=== PATIENT | female | born 1945 | race Caucasian/White ===

== ENCOUNTER → 2016-09-27 | Outpatient (REF) | payer MEDICARE, BC ==
[2016-09-27 14:34] LABS: ALBUMIN 3.9 GM/DL (3.2-5.2); ALKALINE PHOSPHATASE 96 U/L (45-117); ALT/SGPT 22 U/L (12-78); ANION GAP 8 MEQ/L (8-16); AST/SGOT 19 U/L (15-37); BILIRUBIN,TOTAL 0.3 MG/DL (0.2-1.0); BLOOD UREA NITROGEN 20 MG/DL (7-18); CALCIUM LEVEL 9.2 MG/DL (8.8-10.2); CARBON DIOXIDE LEVEL 30 MEQ/L (21-32); CHLORIDE LEVEL 104 MEQ/L (98-107); CHOLESTEROL LEVEL 218 MG/DL (<200); CREATININE FOR GFR 0.83 MG/DL (0.55-1.02); GLOMERULAR FILTRATION RATE > 60.0 (>45); GLUCOSE, FASTING 87 MG/DL (80-110); POTASSIUM SERUM 3.9 MEQ/L (3.5-5.1); SODIUM LEVEL 142 MEQ/L (136-145); TOTAL PROTEIN 6.5 GM/DL (6.4-8.2); TRIGLYCERIDES LEVEL 103 MG/DL (<150)
== END ==
LOC: M SFHCPLAZ 11:17
PROVIDERS: ATTEND Nurse Practitioner Family
DX: E78.2 Mixed hyperlipidemia (principal)

== ENCOUNTER → 2016-09-27 | Outpatient (CLI) | payer MEDICARE, BC ==
--- NOTE | 2016-09-27 11:30 | REPMRS ---
Patient History The patient states she had a clinical breast exam in 09/2016. Patient is postmenopausal. Family history of breast cancer in paternal aunt. Digital Woman Screen Mammo: September 27, 2016 - Exam #: [id number] Bilateral CC and MLO view(s) were taken. Technologist: Ericka Evans Technologist Prior study comparison: July 08, 2015, digital woman screen mammo performed at [facility] to [facility]. July 01, 2014, digital woman screen mammo performed at [facility] to [facility]. FINDINGS: The breast tissue is heterogeneously dense. This may lower the sensitivity of mammography. There has been no change in the appearance of the mammogram from the prior studies. There is a moderate amount of residual fibroglandular tissue which is fairly symmetric. There is no interval development of dominant mass, areas of architectural distortion, or clustered microcalcification typical of malignancy. ASSESSMENT: BI-RADS/ACR category 1 mammogram. Negative. Recommendation Routine screening mammogram in 1 year (for women over age 40). This mammogram was interpreted with the aid of an FDA-approved computer-aided dectection system. Electronically Signed By: Ventura Chambers MD 09/27/16 [id number]
== END ==
LOC: M WHC 10:40
PROVIDERS: ATTEND Nurse Practitioner Family
DX: Z12.31 Encounter for screening mammogram for malignant neoplasm of breast (principal); Z78.0 Asymptomatic menopausal state; Z79.899 Other long term (current) drug therapy
CPT/HCPCS: 80053; 80061; G0202; G0463

== ENCOUNTER → 2016-09-30 | Outpatient (CLI) | payer MEDICARE, BC ==
[~2016-09-30] MED LIST: ISOVUE-370 76% 100ML VIAL (Q9967) As Ordered ONE
--- NOTE | 2016-09-30 17:04 | REP ---
CT angiography of the abdominal aorta and lower extremity runoff arteries with IV contrast: History: Peripheral arterial disease. CT contrast dose: 100 mL of Isovue-370 is administered intravenously. Technique: Helical scanning is acquired and 3 mm axial images are reviewed. Coronal and sagittal multiplanar reformation images are generated reviewed. Maximal intensity projection images are generated in the coronal imaging plane. Scan delay was affected to some degree by malfunction of the auto trigger mechanism. However, good opacification of the arterial tree was achieved. Nonvascular findings: There is a peripheral discontinuous enhancement in a 4.6 cm stable right hepatic lobe benign hemangioma unchanged from the prior study of 2005. Vascular findings: The suprarenal and infrarenal abdominal aorta are normal in caliber. There is mild vascular calcification of the distal aorta and common iliac arteries. Singular non-stenotic left renal artery is seen. 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 No renal artery stenosis is seen. No aortic stenosis is seen. The common iliac arteries are widely patent bilaterally. External and internal iliac arteries are widely patent. Common femoral arteries are widely patent bilaterally. The superficial femoral artery show no evidence of significant stenosis or plaquing. Popliteal arteries are widely patent bilaterally. There is some venous opacification seen rendering it somewhat difficult to evaluate the calf arteries but there appear to be three-vessel calf run off arteries with enhancing to the distal calf. No evidence of occlusion or stenosis. Impression: 1. 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 2. Mild vascular calcification. No large artery occlusion or stenosis seen in either leg. 3. Stable 4.6 cm hemangioma of the liver. Signed by Raymond Guo MD 10/01/2016 10:42 A
== END ==
LOC: M RAD 14:44
PROVIDERS: ATTEND Physician Assistant Medical
DX: I73.9 Peripheral vascular disease, unspecified (principal)
CPT/HCPCS: 75635; Q9967

== ENCOUNTER → 2016-11-18 | Outpatient (CLI) | payer MEDICARE, BC ==
--- NOTE | 2016-11-18 23:45 | ECWPNPC ---
PATIENT NAME: EDITH ROJAS : 1945 GENDER: FEMALE VISIT DATE: 11/18/2016 DISCHARGE DATE: 11/18/16 1500 VISIT LOCKED DATE TIME: PHYSICIAN: LENARD SWIFT RESOURCE: LENARD SWIFT REASON FOR APPOINTMENT 1. LUMBAR/RIGHT SIJ HISTORY OF PRESENT ILLNESS FALL RISK SCREENIN71 Y/O FEMALE REFERRED BY [facility]DLER TIER TO EVALUATE CHRONIC RIGHT SIDED LOW BACK PAIN.THIS BEGAN SEVERAL YEARS AGO WITHOUT PRECIPITATING EVENT.PAIN IS AGGREVATED AT NIGHT WHEN LAYING DOWN AND RELIEVED BY STANDING UP.HAVING SMALL AMOUNT OF CONSTANT ACHING AND THROBBING PAIN.RATING PAIN VAS 2/10.HAS TRIALED MULTIPLE DIFFERENT MEDICATIONS WITHOUT IMPROVEMENT OR WITH SIDE EFFECTS.TRIALED RIGHT SIJ ONE YEAR AGO WITHOUT IMPROVEMENT.TRIALED MANAGER TRANSPORTATION WITHOUT IMPROVEMENT.DENIES RECENT FEVER,ILLNESS OR WEIGHT LOSS.REPORTING NORMAL BOWEL AND BLADDER FUNCTION. SCREENING :NO FALLS IN THE PAST YEAR PAIN SCREENING: PATIENT HAS A COMPLAINT OF ACUTE OR CHRONIC PAIN :YES CURRENT MEDICATIONS TAKING CALCIUM 600 + D 600-400 MG-UNIT TABLET 1 TABLET ORALLY DAILY TAKING VITAMIN D 400 UNIT CAPSULE 1 TABLET ORALLY ONCE A DAY TAKING MULTIVITAMINS OTC TABLET 1 TABLET ORALLY ONCE A DAY TAKING EPIPEN 2-HEATHER 0.3 MG/0.3ML (1:1000) DEVICE INJECTION INTRAMUSCULAR NEEDED TAKING ASPIR-81 81 MG TABLET DELAYED RELEASE 1 TABLET ORALLY ONCE A DAY TAKING PRILOSEC 40 MG CAPSULE DELAYED RELEASE 1 CAPSULE ORALLY ONCE A DAY TAKING LIPITOR 20 MG TABLET 1 TABLET ORALLY ONCE A DAY TAKING GABAPENTIN 100 MG CAPSULE TAKE ONE CAPSULE BY MOUTH THREE TIMES A DAY NEEDED DIRECTED ORAL 2 TBS IN A.M. , 1 TAB IN P.M. TAKING NAPROXEN 500 MG TABLET DELAYED RELEASE 1 TABLET ORALLY TWICE A DAY NEEDED NOT-TAKING GABAPENTIN 300 MG CAPSULE 1 CAPSULE ORALLY AT HS X 1 WEEK, THEN BID X 1 WEEK, THEN THREE TIMES A DAY MEDICATION LIST REVIEWED AND RECONCILED WITH THE PATIENT PAST MEDICAL HISTORY OSTEOPENIA BILAT PLANTAR FASCIATIS ENVIR. ALLERGIES (HAD ANAPHYLAXIS WITH RAGWEED SKIN TESTING), CARRIES EPI-PEN HEMORRHOIDS/DIVERTICULOSIS HYPERLIPIDEMIA HX. OF COLON POLYP CHRONIC BACK PAIN DDD SIJ DISEASE ALLERGIES ACTONEL: BACK PAIN: SIDE EFFECTS FLEXERIL: HIVES: ALLERGY PENICILLIN V POTASSIUM: HIVES: ALLERGY SULFA (FOR ALLERGY USE ONLY): HIVES: ALLERGY ELAVIL: INEFFECTIVE: LACK OF THERAPEUTIC EFFECT CYMBALTA: NAUSEA , RHODES, DIZZINESS: SIDE EFFECTS ENVIRONMENTAL: SNEEZING, WATERY EYES, SINUS CONGESTION: ALLERGY SURGICAL HISTORY X2 D & C 1997,2000 VAGINAL CYST 04/28 GANGLION CYST R HAND 07/25 PARATHYROIDECTOMY ADENOMA - DR HERRERA 04/29 COLONOSCOPY, HAS HAD 3 - PRIOR POLYPS, ANDREI - DIVERTICULOSIS, (NO POLYPS IN ) 11/29 TONSILLECTOMY AGE 7 2 BASAL CELL CANCER SURGERIES ON FACE 2015 FAMILY HISTORY FATHER: 49 YRS, DIAGNOSED WITH HEART DISEASE MOTHER: 65 YRS, CANCER, LIVER, HX OF HIP FRACTURE, DIAGNOSED WITH CANCER SIBLINGS: ALIVE 1 BROTHER(S) , 1 SISTER(S) - HEALTHY. MOTHER-LIVER CA. SOCIAL HISTORY GENERAL: TOBACCO USE ARE YOU A:FORMER SMOKER HOW LONG HAS IT BEEN SINCE YOU LAST SMOKED?> 10 YEARS BMI CARE GOAL FOLLOW-UP ABOVE NORMAL BMI FOLLOW-UPGIVING ENCOURAGEMENT TO EXERCISE ALCOHOL SCREENING DID YOU HAVE A DRINK CONTAINING ALCOHOL IN THE PAST YEAR?YES HOW OFTEN DID YOU HAVE A DRINK CONTAINING ALCOHOL IN THE PAST YEAR?MONTHLY OR LESS (1 POINT) HOW MANY DRINKS DID YOU HAVE ON A TYPICAL DAY WHEN YOU WERE DRINKING IN THE PAST YEAR?1 OR 2 (0 POINTS) HOW OFTEN DID YOU HAVE SIX OR MORE DRINKS ON ONE OCCASION IN THE PAST YEAR?NEVER (0 POINTS) POINTS1 INTERPRETATIONNEGATIVE RECREATIONAL DRUG USE DRUG USE?NO CAFFEINE CAFFEINE USE?YES HOW OFTEN AND HOW MUCH? 3 CUPS/DAY HIV / HEP-C SCREENING HIV TEST OFFERED TO PATIENT:NO N/A HEP-C TEST OFFERED TO PATIENT:YES DATE OFFERED:08/04/2016 TEST ACCEPTED:NO REASON:PATIENT DECLINED OCCUPATION: EDUCATION - RETIRED TEACHER. DIET: REGULAR. EXERCISE: WALKS OR BIKES DAILY (LESS IN WINTER). MARITAL STATUS: . OTHERS AT HOME: SPOUSE. PETS: NONE. ANABAPTISM [id number] NONE LANGUAGE BULGARIAN. EDUCATION LEVEL OF EDUCATION:COLLEGE LEARNING BARRIERS / SPECIAL NEEDS CHANGE FROM LAST VISIT?NO BARRIERS TO LEARNING?NO HEARING IMPAIRED?NO VISION IMPAIRED?YES :CORRECTIVE LENSES COGNITIVELY IMPAIRED?NO READINESS TO LEARN?YES LEARNING PREFERENCES?NO LEARNING CAPABILITIES PRESENT?YES EMOTIONAL BARRIERS?NO SPECIAL DEVICES?NO MANAGER OF SUPPLY CHAIN NEEDED?NO NEW PATIENT PAIN DIARY FROM 0-10, WHAT NUMBER IS YOUR PAIN TODAY? 3. PAIN CLINIC PFS, CLERGY, PUBLIC HEALTH REFERRALS PFS REFERRAL NEEDED?NO CLERGY REFERRAL NEEDED?NO PUBLIC HEALTH REFERRAL NEEDED?NO ADVANCED DIRECTIVES HEALTH CARE PROXY?YES NAME OF HCP , LIZETTE ROJAS CONTACT # FOR HCP [phone] (C) DO YOU HAVE A COPY WITH YOU?NO DO YOU HAVE A DNR?NO WOULD YOU LIKE MORE INFORMATION?NO LIVING WILL?YES DO YOU HAVE A COPY WITH YOU?NO POWER OF MEMBERSHIP SALES ADVISOR?YES NAME OF POA? , LIZETTE PHONE # OF POA? ABOVE DO YOU HAVE A COPY WITH YOU?YES HAVE YOU HAD A COPY OF ANY ADVANCED DIRECTIVE (LISTED ABOVE) ON A PREVIOUS MEDICAL RECORDS AT [facility]?NO TRAVEL OUTSIDE US: YES, [facility], [place], [place], [place], [place]. DOMESTIC VIOLENCE: NONE. 11/18/16 PLAN OF CARE FOR THE PAIN CENTER REVIEWED WITH PT. AND SHE VERBALIZED UNDERSTANDING. HOSPITALIZATION/MAJOR DIAGNOSTIC PROCEDURE PARATHYROIDECTOMY 04/29 REVIEW OF SYSTEMS CONSTITUTIONAL: ANY CHANGE IN YOUR MEDICAL CONDITION? NO . CHILLS NO . FEVER NO . INFECTION: DO YOU HAVE NEW INFECTIONS? NO . DO YOU HAVE HISTORY OF MRSA? NO . MUSCULOSKELETAL: ANY NEW PATTERNS OF PAIN OR NUMBNESS? NO . SYTEMIC LUPUS NO . GASTROENTEROLOGY: ANY NEW CHANGE IN BOWEL CONTROL? NO . BARRETTS ESOPHAGUS NO . CIRRHOSIS NO . HEPATITIS NO . LIVER FAILURE NO . ACID REFLUX YES . UNEXPLAINED WEIGHT LOSS NO . GENITOURINARY: ANY NEW CHANGE IN BLADDER CONTROL? NO . IS THERE A CHANCE YOU COULD BE ? NO . HEMATOLOGY/LYMPH: DO YOU TAKE ANY BLOOD THINNERS? (FOR EXAMPLE- COUMADIN, PLAVIX, AGGRENOX, PLATEL, PRADAXA, OR XARELTO) NO . WHEN WAS YOUR LAST DOSE? DATE: TIME: . LOW PLATELET COUNT NO . SICKLE CELL DISEASE NO . VON WILLIEBRANDS NO . FACTOR V LEIDEN NO . THALLASEMIA NO . ANEMIA NO . EASY BRUISING ON ASPIRIN, YES . NEUROLOGY: HAVE YOU FALLEN IN THE PAST 6 MONTHS? NO . ANY NEW EXTREMITY NUMBNESS OR WEAKNESS? NO . HEAD INJURY NO . DEMENTIA NO . CEREBRAL PALSY NO . MULTIPLE SCLEROSIS NO . DIZZINESS NO . HEADACHE NO . STROKES NO . VERTIGO NO . CARDIOLOGY: DO YOU HAVE A PACEMAKER OR DEFIBRILLATOR? NO . ANGINA NO . HEART ATTACK NO . HEART SURGERY NO . CONGESTIVE HEART FAILURE/FLUID OVERLOAD NO . CHEST PAIN NO . HIGH BLOOD PRESSURE NO . IRREGULAR HEART BEAT NO . RESPIRATORY: HAVE YOU BEEN SICK IN THE PAST WEEK? NO . FEVER NO . FLU LIKE SYMPTOMS? NO . CPAP NO . BYPAP NO . ASTHMA NO . EMPHYSEMA NO . CHRONIC LUNG DISEASES NO . SHORTNESS OF BREATH ON EXERTION NO . COUGH NO . SNORING YES, OCC. . INTEGUMENTARY: DO YOU HAVE ANY RASHES OR OPEN SORES? NO . ALLERGIC/IMMUNO: ARE YOU ALLERGIC TO SHELLFISH OR IV DYE? NO . ANY NEW ALLERGIES? NO . PSYCHIATRIC: DO YOU HAVE THOUGHTS OF HURTING YOURSELF OR SOMEONE ELSE? NO . ARE YOU ABUSED, NEGLECTED, OR IN AN UNSAFE ENVIRONMENT? NO . ENDOCRINOLOGY: ARE YOU DIABETIC? NO . THYROID DISORDER NO . OTHER: DO YOU NEED ANY PRESCRIPTIONS? NO . IF YES, PLEASE LIST: ____ . ANY NEW PROBLEMS WITH YOUR MEDICATIONS? NO . WHEN DID YOU LAST EAT? ____ . WHEN DID YOU LAST DRINK? ____ . WHAT DID YOU LAST DRINK? ____ . NAME OF PERSON DRIVING YOU HOME? ____ . DO YOU HAVE ANY OTHER QUESTIONS OR CONCERNS YES, PAIN RELIEF . REVIEWED BY: PROVIDER: LENARD SUGGS . VITAL SIGNS WT 175.0 LBS, HT 64.75 IN, BMI 29.34 INDEX, BP 148/94 MM HG, HR 103 /MIN, RR 16 /MIN, TEMP 98.5 F, OXYGEN SAT % 96%, NA INITIALS TL 1318, REVIEWED BY: AD. EXAMINATION GENERAL EXAMINATION: GENERAL APPEARANCE:PLEASANT. LUNGS:LUNG IGLESIAS ARE CLEAR TO AUSCULTATION BILATERALLY. GOOD MOVEMENT OF AIR. HEART:S1, S2 IN A REGULAR RATE AND RHYTHM. NO SIGNIFICANT MURMURS, RUBS OR GALLOPS NOTED. DIAGNOSTIC DATA:BILAT. SIJ 05-23-14-MINIMAL OSTEOARTHRITIS SIJ BILAT.L/S SPINE [id number]. LUMBAR SPINE/LOWER BACK: INSPECTION:NORMAL CURVATURE OF SPINE. PALPATION:LARGE TRIGGER POINT NOTED RIGHT LUMBAR PARASPINAL. MOTOR SYSTEM:5/5 BLE. SENSORY EXAM:NORMAL BILATERAL LE. REFLEXES:2/4 AND SYMMETRIC BLE. GAIT:UNREMARKABLE. ASSESSMENTS MYOFASCIAL PAIN SYNDROME - M79.1 (PRIMARY) TREATMENT MYOFASCIAL PAIN SYNDROME TRIGGER POINT 1-2 LENARD HURST 11/18/2016 2:25:43 PM > RIGHT LOWER LUMBAR TPI NOTES: TRIGGER POINT INJECTION MATERIAL WAS PRINTED,TRIGGER POINT INJECTION: YOUR EXPERIENCE MATERIAL WAS PRINTED. REFERRAL TO:PHYSICAL THERAPIST REASON:MYOFASCIAL RELEASE RIGHT LOW BACK 2XWK X 8WK PREVENTIVE MEDICINE PAIN CLINIC TEACHING: PROCEDURE TEACHING PRINTED INFORMATION ONTPI GIVEN TO AND EXPLAINED TO PT ALONG WITH PRE-PROCEDURE INSTRUCTIONS. SHE VERVALIZED UNDERSTANDING ON BOTH.. PROCEDURE CODES FA211 ESTABILISHED PATIENT [facility] CHARGE G8730 PAIN ASSESS POS TOOL F/U PLAN DOC G8427 DOC MEDS VERIFIED W/PT OR RE DISPOSITION & COMMUNICATION FOLLOW UP 2WK POST (REASON: RIGHT LUMBAR TPI-HX VASOVAGAL RESPONSE) ELECTRONICALLY SIGNED BY IFEANYI ROSSI ON 11/18/2016 AT 04:06 PM EDT DISCLAIMER : THIS IS A VISIT SUMMARY EXTRACTED FROM THE [employer] CHART. IT IS NOT A COPY OF THE [employer] PROGRESS NOTE. ABRAHAM
== END ==
LOC: M PAIN 13:20
PROVIDERS: ATTEND Nurse Practitioner Family
DX: G89.29 Other chronic pain (principal); M79.1 Myalgia; M85.80 Other specified disorders of bone density and structure, unspecified site; E78.5 Hyperlipidemia, unspecified; M47.819 Spondylosis without myelopathy or radiculopathy, site unspecified; Z87.891 Personal history of nicotine dependence; Z88.0 Allergy status to penicillin; Z88.2 Allergy status to sulfonamides; Z88.8 Allergy status to other drugs, medicaments and biological substances; J30.89 Other allergic rhinitis; Z79.82 Long term (current) use of aspirin; Z79.899 Other long term (current) drug therapy

== ENCOUNTER → 2016-12-03 | Outpatient (CLI) | payer MEDICARE, BC ==
[~2016-12-03] MED LIST changes: +BUPIVACAINE HCL 0.25% 10 ML VIAL As Ordered ONE; +BUPIVACAINE HCL 0.25% 30 ML VIAL As Ordered ONE; -ISOVUE-370 76% 100ML VIAL (Q9967) As Ordered ONE; +TRIAMCINOLONE ACETONIDE SUSP 40 MG/ML VIAL (J3301) As Ordered ONE; +diazePAM 5 MG TAB As Ordered ONE; +diphenhydrAMINE INJ 50MG/ML VIAL (J1200) As Ordered ONE; +oxyCODONE 5MG TAB As Ordered ONE
--- NOTE | 2016-12-14 01:11 | ECWPNPC ---
PATIENT NAME: EDITH ROJAS : 1945 GENDER: FEMALE VISIT DATE: 12/03/2016 DISCHARGE DATE: 12/03/161636 VISIT LOCKED DATE TIME: PHYSICIAN: MARCELO ESPARZA RESOURCE: MARCELO ESPARZA REASON FOR APPOINTMENT 1. SIJ CURRENT MEDICATIONS TAKING CALCIUM 600 + D 600-400 MG-UNIT TABLET 1 TABLET ORALLY DAILY, NOTES: 12/03/16629 TAKING VITAMIN D 400 UNIT CAPSULE 1 TABLET ORALLY ONCE A DAY, NOTES: 12/03/16629 TAKING MULTIVITAMINS OTC TABLET 1 TABLET ORALLY ONCE A DAY, NOTES: 12/02/161699 TAKING EPIPEN 2-HEATHER 0.3 MG/0.3ML (1:1000) DEVICE INJECTION INTRAMUSCULAR NEEDED, NOTES: NONE RECENT TAKING ASPIR-81 81 MG TABLET DELAYED RELEASE 1 TABLET ORALLY ONCE A DAY, NOTES: 12/02/161899 TAKING PRILOSEC 40 MG CAPSULE DELAYED RELEASE 1 CAPSULE ORALLY ONCE A DAY, NOTES: 12/03/16629 TAKING LIPITOR 20 MG TABLET 1 TABLET ORALLY ONCE A DAY, NOTES: 12/02/161899 TAKING NAPROXEN 500 MG TABLET DELAYED RELEASE 1 TABLET ORALLY TWICE A DAY NEEDED, NOTES: 2 WEEKS AGO NOT-TAKING GABAPENTIN 100 MG CAPSULE TAKE ONE CAPSULE BY MOUTH THREE TIMES A DAY NEEDED DIRECTED ORAL 2 TBS IN A.M. , 1 TAB IN P.M., NOTES: 2 WEEKS AGO NOT-TAKING GABAPENTIN 300 MG CAPSULE 1 CAPSULE ORALLY AT HS X 1 WEEK, THEN BID X 1 WEEK, THEN THREE TIMES A DAY MEDICATION LIST REVIEWED AND RECONCILED WITH THE PATIENT PAST MEDICAL HISTORY OSTEOPENIA BILAT PLANTAR FASCIATIS ENVIR. ALLERGIES (HAD ANAPHYLAXIS WITH RAGWEED SKIN TESTING), CARRIES EPI-PEN HEMORRHOIDS/DIVERTICULOSIS HYPERLIPIDEMIA HX. OF COLON POLYP CHRONIC BACK PAIN DDD SIJ DISEASE ALLERGIES ACTONEL: BACK PAIN: SIDE EFFECTS FLEXERIL: HIVES: ALLERGY PENICILLIN V POTASSIUM: HIVES: ALLERGY SULFA (FOR ALLERGY USE ONLY): HIVES: ALLERGY ELAVIL: INEFFECTIVE: LACK OF THERAPEUTIC EFFECT CYMBALTA: NAUSEA , RHODES, DIZZINESS: SIDE EFFECTS ENVIRONMENTAL: SNEEZING, WATERY EYES, SINUS CONGESTION: ALLERGY VITAL SIGNS WT 174.0 LBS, HT 64.75 IN, BMI 29.18 INDEX, BP 151/101 MM HG, REPEAT BP 140/84 MANUAL, HR 79 /MIN, RR 16 /MIN, TEMP 97.3 F, OXYGEN SAT % 98%, NA INITIALS TL 1323, REVIEWED BY: AD. ASSESSMENTS MYALGIA - M79.1 (PRIMARY) PROCEDURES PN TRIGGER POINT INJECTION WITH STEROIDS PRE PROCEDURE DIAGNOSIS 1. MYALGIA 2. PAIN AT RIGHT LOW BACK AREA POST PROCEDURE DIAGNOSIS 1. MYALGIA 2. PAIN AT RIGHT LOW BACK AREA PROCEDURE TRIGGER POINT INJECTION AT RIGHT LOW BACK AREA SURGEON DR. MARCELO ESPARZA BALE COVERER NONE ANESTHESIA LOCAL PRE PROCEDURE NOTE THE PATIENT HAS A HISTORY OF CHRONIC PAIN AT THE RIGHT LOW BACK AREA. I EVALUATE THE PATIENT AND REVIEWED THE CHART. THERE IS EVIDENCE OF BANDS OF TISSUE WITH RESTRICTION OF MOVEMENT AND PRESENCE OF TRIGGER POINT AT THE AFFECTED AREA. I WENT OVER THE RISKS, ALTERNATIVES, AND BENEFITS ASSOCIATED WITH THIS PROCEDURE. THE PATIENT WOULD LIKE TO PROCEED AND GIVE CONSENT TO PERFORMED THE PROCEDURE. THE PATIENT DENIES UNEXPLAINABLE WEIGHT LOSS, FEVER, CHILLS, OR NEW CHANGES IN URINARY OR BOWEL CONTROL DESCRIPTION OF PROCEDURE THE PATIENT WAS BROUGHT TO THE PROCEDURE ROOM AND PLACED IN THE SITTING POSITION. THE AREA WAS CLEANED WITH ALCOHOL. THE PROCEDURE WAS DONE USING ASEPTIC STERILE TECHNIQUE. I CHECKED LATERALITY AND THE LEVEL WHERE THE PROCEDURE WAS GOING TO BE PERFORMED WITH THE PATIENT AND THE SUPPORTING STAFF AT THE MOMENT OF THE TIME OUT IN THE PROCEDURE ROOM. USING A 25-GAUGE NEEDLE, TRIGGER POINTS WERE INJECTED AT THE RIGHT LOW BACK AREA WITH A TOTAL OF 40 ML OF BUPIVACAINE 0.25% AND KENALOG 40 MG. THERE WAS NO EVIDENCE OF BLOOD, PARESTHESIA OR CEREBROSPINAL FLUID DURING THE PROCEDURE. THE PATIENT WAS SENT TO THE RECOVERY ROOM. THE PATIENT WAS MOVING THE EXTREMITIES AND DOING WELL. THERE WAS NO COMPLICATION DURING THE PROCEDURE POST PROCEDURE NOTE THE PATIENT WILL BE SEEN IN A FOLLOW UP IN THE NEXT FEW WEEKS. INSTRUCTIONS WERE GIVEN, QUESTIONS WERE ANSWERED, AND THE PATIENT EXPRESSED UNDERSTANDING AND AGREES WITH THE PLAN. I, NORMA OCASIO, DOCUMENTED THE ABOVE INFORMATION ACTING A SCRIBE FOR DR. ESPARZA. I HAVE REVIEWED THE ABOVE DOCUMENT, WRITTEN BY NORMA MERAZ AND I VERIFY THAT IT IS ACCURATE PROCEDURE CODES 36738 INJ TRIGGER POINT 07/26 [facility] DISPOSITION & COMMUNICATION FOLLOW UP 3 WEEKS ELECTRONICALLY SIGNED BY MARCELO ESPARZA MD ON 12/13/2016 AT 06:51 PM EDT DISCLAIMER : THIS IS A VISIT SUMMARY EXTRACTED FROM THE [employer] CHART. IT IS NOT A COPY OF THE [facility] PROGRESS NOTE. MTDD
== END ==
LOC: M PAIN 12:40
PROVIDERS: ATTEND Anesthesiology
DX: G89.29 Other chronic pain (principal); M79.1 Myalgia; M54.5 Low back pain; M85.80 Other specified disorders of bone density and structure, unspecified site; J30.89 Other allergic rhinitis; E78.2 Mixed hyperlipidemia; K21.9 Gastro-esophageal reflux disease without esophagitis; M51.36 Other intervertebral disc degeneration, lumbar region; M46.1 Sacroiliitis, not elsewhere classified; I73.9 Peripheral vascular disease, unspecified; Z88.0 Allergy status to penicillin; Z88.2 Allergy status to sulfonamides; Z88.8 Allergy status to other drugs, medicaments and biological substances; Z79.82 Long term (current) use of aspirin; Z79.899 Other long term (current) drug therapy
CPT/HCPCS: 20552; J1200; J3301

== ENCOUNTER → 2016-12-08 | Outpatient (REF) | payer MEDICARE, BC ==
[2016-12-08 18:43] LABS: ALBUMIN 3.7 GM/DL (3.2-5.2); ALBUMIN/GLOBULIN RATIO 1.32 (1.00-1.93); ALKALINE PHOSPHATASE 91 U/L (45-117); ALT/SGPT 24 U/L (12-78); ANION GAP 7 MEQ/L (8-16); AST/SGOT 13 U/L (15-37); BILIRUBIN,TOTAL 0.6 MG/DL (0.2-1.0); BLOOD UREA NITROGEN 20 MG/DL (7-18); CALCIUM LEVEL 8.6 MG/DL (8.8-10.2); CARBON DIOXIDE LEVEL 29 MEQ/L (21-32); CHLORIDE LEVEL 107 MEQ/L (98-107); CHOLESTEROL LEVEL 201 MG/DL (<200); CREATININE FOR GFR 0.81 MG/DL (0.55-1.02); FREE T4 1.18 NG/DL (0.76-1.46); GLOMERULAR FILTRATION RATE > 60.0 (>45); GLUCOSE, FASTING 86 MG/DL (80-110); POTASSIUM SERUM 4.3 MEQ/L (3.5-5.1); SODIUM LEVEL 143 MEQ/L (136-145); TOTAL PROTEIN 6.5 GM/DL (6.4-8.2); TRIGLYCERIDES LEVEL 56 MG/DL (<150)
== END ==
LOC: M SFHCCAPE 07:40
PROVIDERS: ATTEND Nurse Practitioner Family
DX: M53.3 Sacrococcygeal disorders, not elsewhere classified (principal); E78.2 Mixed hyperlipidemia

== ENCOUNTER → 2016-12-17 | Outpatient (CLI) | payer MEDICARE, BC ==
--- NOTE | 2017-01-11 02:40 | ECWPNPC ---
PATIENT NAME: EDITH ROJAS : 1945 GENDER: FEMALE VISIT DATE: 12/17/2016 DISCHARGE DATE: 12/17/1637 VISIT LOCKED DATE TIME: PHYSICIAN: LENARD SWIFT RESOURCE: LENARD SWIFT REASON FOR APPOINTMENT 1. POST PROCEDURE HISTORY OF PRESENT ILLNESS HISTORY OF PRESENT ILLNESS: HERE FOR POST PROCEDURE F/U.HAD RIGHT PARASPINAL TPI ON 12-03-16.REPORTS NO IMPROVEMENT IN PAIN POST PROCEDURE.ATTENDING PT PER MY ORDER AND HAS ATTENDED 5 SESSIONS AND DOESNT NOTICE ANY IMPROVEMENT.RATING PAIN 3/10 VAS.PAIN IS NON RADICULAR PAIN IS DESCRIBED INTERMITTENT THROBBING AND TENDERNESS RIGHT LOW BACK. FALL RISK SCREENING: SCREENING :NO FALLS IN THE PAST YEAR CURRENT MEDICATIONS TAKING CALCIUM 600 + D 600-400 MG-UNIT TABLET 1 TABLET ORALLY DAILY TAKING VITAMIN D 400 UNIT CAPSULE 1 TABLET ORALLY ONCE A DAY TAKING MULTIVITAMINS OTC TABLET 1 TABLET ORALLY ONCE A DAY TAKING EPIPEN 2-HEATHER 0.3 MG/0.3ML (1:1000) DEVICE INJECTION INTRAMUSCULAR NEEDED TAKING ASPIR-81 81 MG TABLET DELAYED RELEASE 1 TABLET ORALLY ONCE A DAY TAKING NAPROXEN 500 MG TABLET DELAYED RELEASE 1 TABLET ORALLY TWICE A DAY NEEDED TAKING LIPITOR 20 MG TABLET 1 TABLET ORALLY ONCE A DAY TAKING CIPRO 500 MG TABLET 1 TABLET ORALLY TWICE A DAY TAKING DIFLUCAN 150 MG TABLET 1 TABLET ORALLY DAILY NEEDED TAKING PRILOSEC 40 MG CAPSULE DELAYED RELEASE 1 CAPSULE ORALLY ONCE A DAY MEDICATION LIST REVIEWED AND RECONCILED WITH THE PATIENT PAST MEDICAL HISTORY OSTEOPENIA BILAT PLANTAR FASCIATIS ENVIR. ALLERGIES (HAD ANAPHYLAXIS WITH RAGWEED SKIN TESTING), CARRIES EPI-PEN HEMORRHOIDS/DIVERTICULOSIS HYPERLIPIDEMIA HX. OF COLON POLYP CHRONIC BACK PAIN DDD SIJ DISEASE ALLERGIES ACTONEL: BACK PAIN: SIDE EFFECTS FLEXERIL: HIVES: ALLERGY PENICILLIN V POTASSIUM: HIVES: ALLERGY SULFA (FOR ALLERGY USE ONLY): HIVES: ALLERGY ELAVIL: INEFFECTIVE: LACK OF THERAPEUTIC EFFECT CYMBALTA: NAUSEA , RHODES, DIZZINESS: SIDE EFFECTS ENVIRONMENTAL: SNEEZING, WATERY EYES, SINUS CONGESTION: ALLERGY SURGICAL HISTORY X2 D & C 1997,2000 VAGINAL CYST 04/28 GANGLION CYST R HAND 07/25 PARATHYROIDECTOMY ADENOMA - DR HERRERA 04/29 COLONOSCOPY, HAS HAD 3 - PRIOR POLYPS, ANDREI - DIVERTICULOSIS, (NO POLYPS IN 08) 11/29 TONSILLECTOMY AGE 7 2 BASAL CELL CANCER SURGERIES ON FACE 2016 HOSPITALIZATION/MAJOR DIAGNOSTIC PROCEDURE PARATHYROIDECTOMY 04/29 REVIEW OF SYSTEMS CONSTITUTIONAL: ANY CHANGE IN YOUR MEDICAL CONDITION? NO . CHILLS NO . FEVER NO . INFECTION: DO YOU HAVE NEW INFECTIONS? NO . DO YOU HAVE HISTORY OF MRSA? NO . MUSCULOSKELETAL: ANY NEW PATTERNS OF PAIN OR NUMBNESS? YES. PT STATES INCREASED PAIN AFTER STARTING PT . GASTROENTEROLOGY: ANY NEW CHANGE IN BOWEL CONTROL? NO . GENITOURINARY: ANY NEW CHANGE IN BLADDER CONTROL? NO . IS THERE A CHANCE YOU COULD BE ? NO . HEMATOLOGY/LYMPH: DO YOU TAKE ANY BLOOD THINNERS? (FOR EXAMPLE- COUMADIN, PLAVIX, AGGRENOX, PLATEL, PRADAXA, OR XARELTO) NO . WHEN WAS YOUR LAST DOSE? DATE: TIME: . NEUROLOGY: HAVE YOU FALLEN IN THE PAST 6 MONTHS? YES. PT STATES SHE MISJUDGED A STEP, FELL GOING DOWN STAIRS. PT STATES SHE FELL DOWN 1 STEP, DENIES MAJOR INJURY, JUST BRUISING. . ANY NEW EXTREMITY NUMBNESS OR WEAKNESS? NO . CARDIOLOGY: DO YOU HAVE A PACEMAKER OR DEFIBRILLATOR? NO . RESPIRATORY: HAVE YOU BEEN SICK IN THE PAST WEEK? NO . FEVER NO . FLU LIKE SYMPTOMS? NO . COUGH NO . INTEGUMENTARY: DO YOU HAVE ANY RASHES OR OPEN SORES? NO . ALLERGIC/IMMUNO: ARE YOU ALLERGIC TO SHELLFISH OR IV DYE? NO . ANY NEW ALLERGIES? NO . PSYCHIATRIC: DO YOU HAVE THOUGHTS OF HURTING YOURSELF OR SOMEONE ELSE? NO . ARE YOU ABUSED, NEGLECTED, OR IN AN UNSAFE ENVIRONMENT? NO . ENDOCRINOLOGY: ARE YOU DIABETIC? NO . OTHER: DO YOU NEED ANY PRESCRIPTIONS? NO . IF YES, PLEASE LIST: ____ . ANY NEW PROBLEMS WITH YOUR MEDICATIONS? NO . WHEN DID YOU LAST EAT? ____ . WHEN DID YOU LAST DRINK? ____ . WHAT DID YOU LAST DRINK? ____ . NAME OF PERSON DRIVING YOU HOME? ____ . DO YOU HAVE ANY OTHER QUESTIONS OR CONCERNS NO . REVIEWED BY: PROVIDER: LENARD SUGGS . VITAL SIGNS WT 172 LBS, HT 64.75 IN, BMI 28.84 INDEX, BP 173/95 MM HG, HR 66 /MIN, RR 18 /MIN, TEMP 97.7 F, OXYGEN SAT % 97, SAFE IN ENV? (Y/N) Y, REVIEWED BY: EM. EXAMINATION GENERAL EXAMINATION: GENERAL APPEARANCE:PLEASANT. LUNGS:LUNG IGLESIAS ARE CLEAR TO AUSCULTATION BILATERALLY. GOOD MOVEMENT OF AIR. HEART:S1, S2 IN A REGULAR RATE AND RHYTHM. NO SIGNIFICANT MURMURS, RUBS OR GALLOPS NOTED. DIAGNOSTIC DATA:BILAT. SIJ 05-23-14-MINIMAL OSTEOARTHRITIS SIJ BILAT.L/S SPINE [id number].MRI L/S [id number]-[id number]-REVIEWED. LUMBAR SPINE/LOWER BACK: INSPECTION:NORMAL CURVATURE OF SPINE. PALPATION:LARGE TRIGGER POINT NOTED RIGHT LUMBAR PARASPINAL AND OVER RIGHT PIRIFORMIS MUSCLE. MOTOR SYSTEM:5/5 BLE. SENSORY EXAM:NORMAL BILATERAL LE. REFLEXES:2/4 AND SYMMETRIC BLE. GAIT:UNREMARKABLE. 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 PROCEDURE CODES FA211 ESTABILISHED PATIENT THE [facility] FACILITY CHARGE DISPOSITION & COMMUNICATION FOLLOW UP 2WK POST (REASON: REQUEST RIGHT PIRIFORMIS INJECTION FROM INSURANCE) ELECTRONICALLY SIGNED BY IFEANYI ROSSI ON 01/10/2017 AT 05:32 PM EDT DISCLAIMER : THIS IS A VISIT SUMMARY EXTRACTED FROM THE [employer] CHART. IT IS NOT A COPY OF THE [employer] PROGRESS NOTE. LEOND
== END ==
LOC: M PAIN 08:40
PROVIDERS: ATTEND Nurse Practitioner Family
DX: G89.29 Other chronic pain (principal); M79.1 Myalgia; G57.01 Lesion of sciatic nerve, right lower limb; M85.80 Other specified disorders of bone density and structure, unspecified site; E78.2 Mixed hyperlipidemia; K21.0 Gastro-esophageal reflux disease with esophagitis; M53.3 Sacrococcygeal disorders, not elsewhere classified; Z88.0 Allergy status to penicillin; J30.89 Other allergic rhinitis; Z88.2 Allergy status to sulfonamides; Z88.8 Allergy status to other drugs, medicaments and biological substances; Z79.82 Long term (current) use of aspirin; Z79.899 Other long term (current) drug therapy

== ENCOUNTER → 2016-12-28 | Outpatient (CLI) | payer MEDICARE, BC ==
[~2016-12-28] MED LIST changes: -BUPIVACAINE HCL 0.25% 10 ML VIAL As Ordered ONE; +ISOVUE-M 300 61% 15ML VIAL (Q9967) As Ordered ONE; +LIDOCAINE 1% SDV INJ 30 ML VIAL As Ordered ONE; +MIDAZOLAM INJ 2 MG/2 ML VIAL (J2250) As Ordered ONE; -diazePAM 5 MG TAB As Ordered ONE; -diphenhydrAMINE INJ 50MG/ML VIAL (J1200) As Ordered ONE; +fentaNYL 100 MCG/2 ML INJECTION (J3010) As Ordered ONE; -oxyCODONE 5MG TAB As Ordered ONE
--- NOTE | 2016-12-28 12:19 | REP ---
Partial SI joint series: Four views. History: Right SI joint injection for pain. Findings: A sequence of four fluoroscopically obtained last image hold spot radiographs of the right SI joint document needle position and contrast injection associated with injection procedure. 23 seconds of fluoroscopy time is reported. Signed by Raymond Guo MD 12/28/2016 02:52 P
--- NOTE | 2017-01-02 23:33 | ECWPNPC ---
PATIENT NAME: EDITH ROJAS : 1945 GENDER: FEMALE VISIT DATE: 12/28/2016 DISCHARGE DATE: 12/28/16 1151 VISIT LOCKED DATE TIME: PHYSICIAN: MARCELO ESPARZA RESOURCE: MARCELO ESPARZA REASON FOR APPOINTMENT 1. PERIFORMIS HISTORY OF PRESENT ILLNESS HISTORY OF PRESENT ILLNESS: PAIN THE PATIENT DESCRIBES THE PAIN... FALL RISK SCREENING: SCREENING :NO FALLS IN THE PAST YEAR CURRENT MEDICATIONS TAKING CALCIUM 600 + D 600-400 MG-UNIT TABLET 1 TABLET ORALLY DAILY, NOTES: 12-28-16699 TAKING VITAMIN D 400 UNIT CAPSULE 1 TABLET ORALLY ONCE A DAY, NOTES: 12-27-16799 TAKING MULTIVITAMINS OTC TABLET 1 TABLET ORALLY ONCE A DAY, NOTES: 699 TAKING EPIPEN 2-HEATHER 0.3 MG/0.3ML (1:1000) DEVICE INJECTION INTRAMUSCULAR NEEDED TAKING ASPIR-81 81 MG TABLET DELAYED RELEASE 1 TABLET ORALLY ONCE A DAY, NOTES: 12-27-162099 TAKING NAPROXEN 500 MG TABLET DELAYED RELEASE 1 TABLET ORALLY TWICE A DAY NEEDED, NOTES: NONE TAKING LIPITOR 20 MG TABLET 1 TABLET ORALLY ONCE A DAY, NOTES: 12-27-162099 TAKING PRILOSEC 40 MG CAPSULE DELAYED RELEASE 1 CAPSULE ORALLY ONCE A DAY, NOTES: 12-28-16699 DISCONTINUED CIPRO 500 MG TABLET 1 TABLET ORALLY TWICE A DAY DISCONTINUED DIFLUCAN 150 MG TABLET 1 TABLET ORALLY DAILY NEEDED MEDICATION LIST REVIEWED AND RECONCILED WITH THE PATIENT PAST MEDICAL HISTORY OSTEOPENIA BILAT PLANTAR FASCIATIS ENVIR. ALLERGIES (HAD ANAPHYLAXIS WITH RAGWEED SKIN TESTING), CARRIES EPI-PEN HEMORRHOIDS/DIVERTICULOSIS HYPERLIPIDEMIA HX. OF COLON POLYP CHRONIC BACK PAIN DDD SIJ DISEASE ALLERGIES ACTONEL: BACK PAIN: SIDE EFFECTS FLEXERIL: HIVES: ALLERGY PENICILLIN V POTASSIUM: HIVES: ALLERGY SULFA (FOR ALLERGY USE ONLY): HIVES: ALLERGY ELAVIL: INEFFECTIVE: LACK OF THERAPEUTIC EFFECT CYMBALTA: NAUSEA , RHODES, DIZZINESS: SIDE EFFECTS ENVIRONMENTAL: SNEEZING, WATERY EYES, SINUS CONGESTION: ALLERGY REVIEW OF SYSTEMS CONSTITUTIONAL: ANY CHANGE IN YOUR MEDICAL CONDITION? NO . CHILLS NO . FEVER NO . INFECTION: DO YOU HAVE NEW INFECTIONS? NO . DO YOU HAVE HISTORY OF MRSA? NO . MUSCULOSKELETAL: ANY NEW PATTERNS OF PAIN OR NUMBNESS? YES, NOT REALLY NEW PAIN BUT IN DIFFERENT AREAS. . GASTROENTEROLOGY: ANY NEW CHANGE IN BOWEL CONTROL? NO . GENITOURINARY: ANY NEW CHANGE IN BLADDER CONTROL? NO . IS THERE A CHANCE YOU COULD BE ? NO . HEMATOLOGY/LYMPH: DO YOU TAKE ANY BLOOD THINNERS? (FOR EXAMPLE- COUMADIN, PLAVIX, AGGRENOX, PLATEL, PRADAXA, OR XARELTO) NO . WHEN WAS YOUR LAST DOSE? DATE: TIME: . NEUROLOGY: HAVE YOU FALLEN IN THE PAST 6 MONTHS? YES . ANY NEW EXTREMITY NUMBNESS OR WEAKNESS? NO . CARDIOLOGY: DO YOU HAVE A PACEMAKER OR DEFIBRILLATOR? NO . RESPIRATORY: HAVE YOU BEEN SICK IN THE PAST WEEK? NO . FEVER NO . FLU LIKE SYMPTOMS? NO . COUGH NO . INTEGUMENTARY: DO YOU HAVE ANY RASHES OR OPEN SORES? NO . ALLERGIC/IMMUNO: ARE YOU ALLERGIC TO SHELLFISH OR IV DYE? NO . ANY NEW ALLERGIES? NO . PSYCHIATRIC: DO YOU HAVE THOUGHTS OF HURTING YOURSELF OR SOMEONE ELSE? NO . ARE YOU ABUSED, NEGLECTED, OR IN AN UNSAFE ENVIRONMENT? NO . ENDOCRINOLOGY: ARE YOU DIABETIC? NO . OTHER: DO YOU NEED ANY PRESCRIPTIONS? NO . IF YES, PLEASE LIST: ____ . ANY NEW PROBLEMS WITH YOUR MEDICATIONS? NO . WHEN DID YOU LAST EAT? 12-27-16 8PM . WHEN DID YOU LAST DRINK? 12-28-16 7AM . WHAT DID YOU LAST DRINK? WATER . NAME OF PERSON DRIVING YOU HOME? MARIO ROJAS . DO YOU HAVE ANY OTHER QUESTIONS OR CONCERNS YES, &QUOT;I AM A FAINTER&QUOT; PER PATIENT . REVIEWED BY: PROVIDER: . VITAL SIGNS WT 170 LBS, HT 64.75 IN, BMI 28.51 INDEX, BP 159/92 MM HG, HR 84 /MIN, RR 16 /MIN, TEMP 96.7 F, OXYGEN SAT % 97%, NA INITIALS SC 09:08, REVIEWED BY: CM. ASSESSMENTS SACROILIITIS, NOT ELSEWHERE CLASSIFIED - M46.1 (PRIMARY) PROCEDURES PN SI PRE PROCEDURE DIAGNOSIS SACROILIITIS, SACROILIAC JOINT DYSFUNCTION POST PROCEDURE DIAGNOSIS SACROILIITIS, SACROILIAC JOINT DYSFUNCTION PROCEDURE ., RIGHT SACROILIAC JOINT BLOCK SURGEON DR. MARCELO ESPARZA RATE QUOTING OPERATOR NONE ANESTHESIA LOCAL WITH IV SEDATION PRE PROCEDURE NOTE PATIENT WITH HISTORY OF CHRONIC LOW BACK PAIN. I EVALUATED THE PATIENT AND REVIEWED THE CHART. I WENT OVER THE RISKS, ALTERNATIVES, AND BENEFITS ASSOCIATED WITH THIS PROCEDURE. PATIENT WANTS IV SEDATION DUE TO THE DISCOMFORT, PAIN, AND ANXIETY THIS PROCEDURE WILL CAUSE HER. THE PATIENT WOULD LIKE TO PROCEED AND GAVE CONSENT TO PERFORM THE PROCEDURE WITH IV SEDATION. THE PATIENT DENIES UNEXPLAINABLE WEIGHT LOSS, FEVER, CHILLS, OR NEW CHANGES IN URINARY OR BOWEL CONTROL DESCRIPTION OF PROCEDURE THE PATIENT WAS BROUGHT TO THE PROCEDURE ROOM AND PLACED IN THE PRONE POSITION. THE LUMBOSACRAL AREA WAS CLEANED WITH CHLORAPREP SOLUTION AND DRAPED ASEPTICALLY. THE PROCEDURE WAS DONE UNDER STERILE CONDITIONS. I CHECKED LATERALITY AND THE LEVEL WHERE THE PROCEDURE WAS GOING TO BE PERFORMED WITH THE PATIENT AND THE SUPPORTING STAFF AT THE MOMENT OF THE TIME OUT IN THE PROCEDURE ROOM. UNDER FLUOROSCOPIC GUIDANCE, TARGET POINT WAS SELECTED AT THE LOWER BORDER OF THE RIGHT SACROILIAC JOINT. TARGET POINT WAS SELECTED AFTER MEDIAL ROTATION AND TILT OF THE MAGNIFIER OF THE C-ARM. LIDOCAINE WAS USED TO NUMB THE SKIN AND SUBCUTANEOUS TISSUE BELOW IT. A SPINAL NEEDLE, 22-GAUGE, WAS ADVANCED UNDER FLUOROSCOPIC GUIDANCE AND FOLLOWING PATIENT FEEDBACK UNTIL THE TARGET AREA WAS TOUCHED. THE POSITION OF THE NEEDLE WAS VERIFIED WITH AP AND LATERAL VIEWS. AFTER PROPER POSITION OF THE NEEDLE WAS ACHIEVED, ISOVUE M DYE 30%, 0.25 ML, WAS INJECTED SHOWING SPREAD OF THE DYE. THEN, A SOLUTION OF 20 MG OF KENALOG WAS INJECTED IN RIGHT JOINT WITH 3 ML OF BUPIVACAINE 0.125%. THERE WAS NO EVIDENCE OF BLOOD, PARESTHESIA OR CEREBROSPINAL FLUID DURING THE PROCEDURE. PATIENT RECEIVED VERSED 2 MG AND FENTANYL 150 MCG IV DIVIDED DOSES. FACE TO FACE TIME WAS 11 MINUTES. THE PATIENT WAS SENT TO THE RECOVERY ROOM. THE PATIENT WAS MOVING THE EXTREMITIES AND DOING WELL. THERE WAS NO COMPLICATION DURING THE PROCEDURE. FLUOROSCOPY TIME WAS 14 SECONDS POST PROCEDURE NOTE THE PATIENT WILL BE SEEN IN A FOLLOW UP IN THE NEXT FEW WEEKS. INSTRUCTIONS WERE GIVEN, QUESTIONS WERE ANSWERED, AND THE PATIENT EXPRESSED UNDERSTANDING AND AGREED WITH THE PLAN. I, NORMA OCASIO, DOCUMENTED THE ABOVE INFORMATION ACTING A SCRIBE FOR DR. ESPARZA. I HAVE REVIEWED THE ABOVE DOCUMENT, WRITTEN BY NORMA OCASIO SCRIBMonique AND I VERIFY THAT IT IS [facility] FLUORO GUIDANCE (PAIN)[id number] PROCEDURE CODES 32836 INJECT SACROILIAC JOINT 6045F RADXPS IN END [id number] PXD 29377 MOD SED SAME PHYS/QHP 5/>YRS DISPOSITION & COMMUNICATION FOLLOW UP 3 WEEKS ELECTRONICALLY SIGNED BY MARCELO ESPARZA MD ON 01/02/2017 AT 07:56 PM EDT DISCLAIMER : THIS IS A VISIT SUMMARY EXTRACTED FROM THE [employer] CHART. IT IS NOT A COPY OF THE [employer] PROGRESS NOTE. MTDD
== END ==
LOC: M PAIN 09:00
PROVIDERS: ATTEND Anesthesiology
DX: G89.29 Other chronic pain (principal); M46.1 Sacroiliitis, not elsewhere classified; M53.88 Other specified dorsopathies, sacral and sacrococcygeal region; M85.80 Other specified disorders of bone density and structure, unspecified site; J30.2 Other seasonal allergic rhinitis; E78.5 Hyperlipidemia, unspecified; M51.9 Unspecified thoracic, thoracolumbar and lumbosacral intervertebral disc disorder; Z88.0 Allergy status to penicillin; Z88.2 Allergy status to sulfonamides; Z88.8 Allergy status to other drugs, medicaments and biological substances; Z79.82 Long term (current) use of aspirin; Z79.899 Other long term (current) drug therapy
CPT/HCPCS: 99152; G0260; J2250; J3010; J3301; Q9967

== ENCOUNTER → 2017-01-11 | Outpatient (CLI) | payer MEDICARE, BC ==
--- NOTE | 2017-01-12 00:48 | ECWPNPC ---
PATIENT NAME: EDITH ROJAS : 1945 GENDER: FEMALE VISIT DATE: 01/11/2017 DISCHARGE DATE: 01/11/17 1041 VISIT LOCKED DATE TIME: PHYSICIAN: LENARD SWIFT RESOURCE: LENARD SWIFT REASON FOR APPOINTMENT 1. POST PERIFOMIS HISTORY OF PRESENT ILLNESS HISTORY OF PRESENT ILLNESS: HERE FOR POST PROCEDURE F/U.HAD RIGHT SIJ ON 12-28-16.REPORTS MINIMAL IMPROVEMENT IN PAIN POST PROCEDURE.HAS NO PAIN DURING DAYTIME.PAIN OCCURS ONLY AT NIGHT AND AGGREVATED IN AM.STOPPED PT PER MY ORDER AND HAS ATTENDED 5 SESSIONS AND DOESNT NOTICE ANY IMPROVEMENT.RATING PAIN 3/10 VAS IN AM.RATING PAIN VAS 0/10 AT VISIT TODAY.PAIN IS NON RADICULAR PAIN IS DESCRIBED INTERMITTENT THROBBING AND TENDERNESS RIGHT LOW BACK.HAS TRIALED MULTIPLE DIFFERENT MEDICATIONS WITH EITHER NO IMPROVEMENT OR SIDE EFFECTS TO INCLUDE AMITRIPTYLINE,GABAPENTIN AND CYMBATA. PAIN THE PATIENT DESCRIBES THE PAIN... THE PATIENT DESCRIBES THE PAIN... FALL RISK SCREENING: SCREENING :NO FALLS IN THE PAST YEAR CURRENT MEDICATIONS TAKING CALCIUM 600 + D 600-400 MG-UNIT TABLET 1 TABLET ORALLY DAILY TAKING VITAMIN D 400 UNIT CAPSULE 1 TABLET ORALLY ONCE A DAY TAKING MULTIVITAMINS OTC TABLET 1 TABLET ORALLY ONCE A DAY TAKING EPIPEN 2-HEATHER 0.3 MG/0.3ML (1:1000) DEVICE INJECTION INTRAMUSCULAR NEEDED TAKING ASPIR-81 81 MG TABLET DELAYED RELEASE 1 TABLET ORALLY ONCE A DAY TAKING NAPROXEN 500 MG TABLET DELAYED RELEASE 1 TABLET ORALLY TWICE A DAY NEEDED TAKING LIPITOR 20 MG TABLET 1 TABLET ORALLY ONCE A DAY TAKING PRILOSEC 40 MG CAPSULE DELAYED RELEASE 1 CAPSULE ORALLY ONCE A DAY MEDICATION LIST REVIEWED AND RECONCILED WITH THE PATIENT PAST MEDICAL HISTORY OSTEOPENIA BILAT PLANTAR FASCIATIS ENVIR. ALLERGIES (HAD ANAPHYLAXIS WITH RAGWEED SKIN TESTING), CARRIES EPI-PEN HEMORRHOIDS/DIVERTICULOSIS HYPERLIPIDEMIA HX. OF COLON POLYP CHRONIC BACK PAIN DDD SIJ DISEASE ALLERGIES ACTONEL: BACK PAIN: SIDE EFFECTS FLEXERIL: HIVES: ALLERGY PENICILLIN V POTASSIUM: HIVES: ALLERGY SULFA (FOR ALLERGY USE ONLY): HIVES: ALLERGY ELAVIL: INEFFECTIVE: LACK OF THERAPEUTIC EFFECT CYMBALTA: NAUSEA , RHODES, DIZZINESS: SIDE EFFECTS ENVIRONMENTAL: SNEEZING, WATERY EYES, SINUS CONGESTION: ALLERGY SOCIAL HISTORY GENERAL: TOBACCO USE ARE YOU A:FORMER SMOKER OVER 20YRS AGO HOW LONG HAS IT BEEN SINCE YOU LAST SMOKED?> 10 YEARS ALCOHOL SCREENING DID YOU HAVE A DRINK CONTAINING ALCOHOL IN THE PAST YEAR?YES HOW OFTEN DID YOU HAVE A DRINK CONTAINING ALCOHOL IN THE PAST YEAR?MONTHLY OR LESS (1 POINT) HOW MANY DRINKS DID YOU HAVE ON A TYPICAL DAY WHEN YOU WERE DRINKING IN THE PAST YEAR?1 OR 2 (0 POINTS) HOW OFTEN DID YOU HAVE SIX OR MORE DRINKS ON ONE OCCASION IN THE PAST YEAR?NEVER (0 POINTS) POINTS1 INTERPRETATIONNEGATIVE RECREATIONAL DRUG USE DRUG USE?NO CAFFEINE CAFFEINE USE?YES HOW OFTEN AND HOW MUCH? 3 CUPS/DAY SEXUAL HX HAD SEX IN THE LAST 12 MONTHS (VAGINAL, ORAL, OR ANAL)?NO HAVE YOU EVER HAD AN STD?NO HIV / HEP-C SCREENING HIV TEST OFFERED TO PATIENT:NO N/A HEP-C TEST OFFERED TO PATIENT:YES DATE OFFERED:08/04/2016 TEST ACCEPTED:NO REASON:PATIENT DECLINED OCCUPATION: EDUCATION - RETIRED TEACHER. DIET: REGULAR, LOW FAT, LOW CHOLESTEROL. EXERCISE: WALKS OR BIKES DAILY (LESS IN WINTER). MARITAL STATUS: . OTHERS AT HOME: SPOUSE. PETS: NONE. YAZIDISM [id number] NONE LANGUAGE SERBIAN. EDUCATION LEVEL OF EDUCATION:COLLEGE LEARNING BARRIERS / SPECIAL NEEDS CHANGE FROM LAST VISIT?NO BARRIERS TO LEARNING?NO HEARING IMPAIRED?NO VISION IMPAIRED?YES :CORRECTIVE LENSES COGNITIVELY IMPAIRED?NO READINESS TO LEARN?YES LEARNING PREFERENCES?NO LEARNING CAPABILITIES PRESENT?YES EMOTIONAL BARRIERS?NO SPECIAL DEVICES?NO MACHINE SHOP SPECIALIST NEEDED?NO NEW PATIENT PAIN DIARY FROM 0-10, WHAT NUMBER IS YOUR PAIN TODAY? 3. PAIN CLINIC PFS, CLERGY, PUBLIC HEALTH REFERRALS PFS REFERRAL NEEDED?NO CLERGY REFERRAL NEEDED?NO PUBLIC HEALTH REFERRAL NEEDED?NO HAS THE PATIENT BEEN EDUCATED REGARDING HIS/HER PLAN OF CARE?YES HAS THE PATIENT BEEN EDUCATED REGARDING PAIN, THE RISK FOR PAIN, THE IMPORTANCE OF EFFECTIVE PAIN MANAGEMENT, AND THE PAIN ASSESSMENT PROCESS?YES ADVANCE DIRECTIVES HEALTH CARE PROXY?YES NAME OF HCP LIZETTE BOB CONTACT # FOR HCP [phone] (C) DO YOU HAVE A COPY WITH YOU?NO DO YOU HAVE A DNR?NO WOULD YOU LIKE MORE INFORMATION?NO LIVING WILL?YES DO YOU HAVE A COPY WITH YOU?NO POWER OF PERSONAL CLOTHING LAUNDRY AIDE?YES NAME OF POA? LIZETTE PHONE # OF POA? ABOVE DO YOU HAVE A COPY WITH YOU?YES HAVE YOU HAD A COPY OF ANY ADVANCED DIRECTIVE (LISTED ABOVE) ON A PREVIOUS MEDICAL RECORDS AT [facility]?NO TRAVEL OUTSIDE US: YES, [facility], [place], [place], [place], [place]. DOMESTIC VIOLENCE NONE. 11/18/16 PLAN OF CARE FOR THE PAIN CENTER REVIEWED WITH PT. AND SHE VERBALIZED UNDERSTANDING. REVIEW OF SYSTEMS CONSTITUTIONAL: ANY CHANGE IN YOUR MEDICAL CONDITION? NO . CHILLS NO . FEVER NO . INFECTION: DO YOU HAVE NEW INFECTIONS? NO . DO YOU HAVE HISTORY OF MRSA? NO . MUSCULOSKELETAL: ANY NEW PATTERNS OF PAIN OR NUMBNESS? YES, PAST WEEK PAIN HAS GONE TO RIGHT HIP . GASTROENTEROLOGY: ANY NEW CHANGE IN BOWEL CONTROL? NO . GENITOURINARY: ANY NEW CHANGE IN BLADDER CONTROL? NO . IS THERE A CHANCE YOU COULD BE ? NO . HEMATOLOGY/LYMPH: DO YOU TAKE ANY BLOOD THINNERS? (FOR EXAMPLE- COUMADIN, PLAVIX, AGGRENOX, PLATEL, PRADAXA, OR XARELTO) NO . WHEN WAS YOUR LAST DOSE? DATE: TIME: . NEUROLOGY: HAVE YOU FALLEN IN THE PAST 6 MONTHS? YES . ANY NEW EXTREMITY NUMBNESS OR WEAKNESS? NO . CARDIOLOGY: DO YOU HAVE A PACEMAKER OR DEFIBRILLATOR? NO . RESPIRATORY: HAVE YOU BEEN SICK IN THE PAST WEEK? NO . FEVER NO . FLU LIKE SYMPTOMS? NO . COUGH NO . INTEGUMENTARY: DO YOU HAVE ANY RASHES OR OPEN SORES? NO . ALLERGIC/IMMUNO: ARE YOU ALLERGIC TO SHELLFISH OR IV DYE? NO . ANY NEW ALLERGIES? NO . PSYCHIATRIC: DO YOU HAVE THOUGHTS OF HURTING YOURSELF OR SOMEONE ELSE? NO . ARE YOU ABUSED, NEGLECTED, OR IN AN UNSAFE ENVIRONMENT? NO . ENDOCRINOLOGY: ARE YOU DIABETIC? NO . OTHER: DO YOU NEED ANY PRESCRIPTIONS? NO . IF YES, PLEASE LIST: ____ . ANY NEW PROBLEMS WITH YOUR MEDICATIONS? NO . WHEN DID YOU LAST EAT? ____ . WHEN DID YOU LAST DRINK? ____ . WHAT DID YOU LAST DRINK? ____ . NAME OF PERSON DRIVING YOU HOME? ____ . DO YOU HAVE ANY OTHER QUESTIONS OR CONCERNS NO . REVIEWED BY: PROVIDER: LENARD SUGGS . VITAL SIGNS WT 170.0 LBS, HT 64.75 IN, BMI 28.51 INDEX, BP 148/88 MM HG, HR 81 /MIN, RR 16 /MIN, TEMP 97.1 F, OXYGEN SAT % 96%, NA INITIALS TL 0952, REVIEWED BY: YU. EXAMINATION GENERAL EXAMINATION: GENERAL APPEARANCE:PLEASANT. LUNGS:LUNG IGLESIAS ARE CLEAR TO AUSCULTATION BILATERALLY. GOOD MOVEMENT OF AIR. HEART:S1, S2 IN A REGULAR RATE AND RHYTHM. NO SIGNIFICANT MURMURS, RUBS OR GALLOPS NOTED. DIAGNOSTIC DATA:BILAT. SIJ 05-23-14-MINIMAL OSTEOARTHRITIS SIJ BILAT.L/S SPINE [id number].MRI L/S [id number]-80-00-16-REVIEWED. LUMBAR SPINE/LOWER BACK: INSPECTION:NORMAL CURVATURE OF SPINE. PALPATION:LARGE TRIGGER POINT NOTED RIGHT LUMBAR PARASPINAL AND OVER RIGHT PIRIFORMIS MUSCLE. MOTOR SYSTEM:5/5 BLE. SENSORY EXAM:NORMAL BILATERAL LE. REFLEXES:2/4 AND SYMMETRIC BLE. GAIT:UNREMARKABLE. 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 PREVENTIVE MEDICINE PAIN CLINIC TEACHING: PROCEDURE TEACHING THERAPEUTIC LUMBAR FACET BLOCK TEACHING DONE WITH PATIENT AND QUESTIONS ANSWERED. PROCEDURE CODES FA211 ESTABILISHED PATIENT [facility] FACILITY CHARGE G8730 PAIN ASSESS POS TOOL F/U PLAN DOC G8427 DOC MEDS VERIFIED W/PT OR RE DISPOSITION & COMMUNICATION FOLLOW UP 2WK POST (REASON: RIGHT L3/4-L4/5 THERAPEUTIC FACET BLOCK) ELECTRONICALLY SIGNED BY IFEANYI ROSSI ON 01/11/2017 AT 03:08 PM EDT DISCLAIMER : THIS IS A VISIT SUMMARY EXTRACTED FROM THE [employer] CHART. IT IS NOT A COPY OF THE [employer] PROGRESS NOTE. MTDD
== END ==
LOC: M PAIN 09:40
PROVIDERS: ATTEND Nurse Practitioner Family
DX: G89.29 Other chronic pain (principal); M47.816 Spondylosis without myelopathy or radiculopathy, lumbar region; M53.3 Sacrococcygeal disorders, not elsewhere classified; M25.551 Pain in right hip; M85.80 Other specified disorders of bone density and structure, unspecified site; J30.89 Other allergic rhinitis; E78.2 Mixed hyperlipidemia; K21.0 Gastro-esophageal reflux disease with esophagitis; M51.36 Other intervertebral disc degeneration, lumbar region; Z88.0 Allergy status to penicillin; Z88.2 Allergy status to sulfonamides; Z88.8 Allergy status to other drugs, medicaments and biological substances; Z79.82 Long term (current) use of aspirin; Z79.899 Other long term (current) drug therapy; Z87.891 Personal history of nicotine dependence

== ENCOUNTER → 2017-01-25 | Outpatient (REF) | payer MEDICARE, BC ==
[~2017-01-25] MED LIST changes: +ASPI1TAB PO; +ATOR1TAB21 PO; -BUPIVACAINE HCL 0.25% 30 ML VIAL As Ordered ONE; +CALC600T31 PO; +FLAX1200 PO; -ISOVUE-M 300 61% 15ML VIAL (Q9967) As Ordered ONE; -LIDOCAINE 1% SDV INJ 30 ML VIAL As Ordered ONE; -MIDAZOLAM INJ 2 MG/2 ML VIAL (J2250) As Ordered ONE; +MULT1TAB10 PO; +OMEP40CA2 PO; -TRIAMCINOLONE ACETONIDE SUSP 40 MG/ML VIAL (J3301) As Ordered ONE; +VITA-110 PO; -fentaNYL 100 MCG/2 ML INJECTION (J3010) As Ordered ONE
== END ==
LOC: M LAB REF 10:06
PROVIDERS: ATTEND Physician Assistant
DX: R30.0 Dysuria (principal)

== ENCOUNTER → 2017-01-27 | Outpatient (REF) | payer MEDICARE, BC | LOC: M SFHCPLAZ 17:44 | PROVIDERS: ATTEND Family Medicine | DX: R39.15 Urgency of urination (principal) | CPT/HCPCS: 81001; G0463 ==

== ENCOUNTER → 2017-02-11 | Outpatient (CLI) | payer MEDICARE, BC ==
--- NOTE | 2017-02-11 14:24 | REP ---
Pelvic ultrasound with transabdominal and endovaginal ultrasound assessment: The bladder is adequately distended. The uterus is anteverted and atrophic measuring 3.9 x 2.3 x 2.9 cm. The endometrium is mildly thickened measuring 5.7 mm (5.0 mm, upper normal in a postmenopausal female). The ovaries are normal size. Right ovary measures 1.2 by 0.7 x 1.3 cm. Left ovary measures 1.5 x 0.7 x 1.4 cm. There are no dominant ovarian masses or cyst. There is no free fluid in the pelvis. Impression: Atrophic uterus. Minimally thickened endometrium. Otherwise, negative pelvic ultrasound.
== END ==
LOC: M WHC 13:17
PROVIDERS: ATTEND Family Medicine
DX: N94.89 Other specified conditions associated with female genital organs and menstrual cycle (principal)

== ENCOUNTER → 2017-02-17 | Outpatient (CLI) | payer MEDICARE, BC ==
[~2017-02-17] MED LIST changes: +BUPIVACAINE HCL 0.25% 30 ML VIAL As Ordered ONE; +ISOVUE-M 300 61% 15ML VIAL (Q9967) As Ordered ONE; +LIDOCAINE 1% SDV INJ 30 ML VIAL As Ordered ONE; +MIDAZOLAM INJ 2 MG/2 ML VIAL (J2250) As Ordered ONE; +TRIAMCINOLONE ACETONIDE SUSP 40 MG/ML VIAL (J3301) As Ordered ONE; +fentaNYL 100 MCG/2 ML INJECTION (J3010) As Ordered ONE
--- NOTE | 2017-02-17 15:41 | REP ---
FLUOROSCOPIC GUIDANCE: The images were reviewed with Dr. Chambers. The patient has a history of back pain. The portable C-Arm was provided in the OR for Dr. Solis for fluoroscopic guidance. Three intraoperative fluoroscopic spot films were obtained for needle placement verification for right iliolumbar ligament injection. The films are on the PACs system and are available for review. 10 seconds of fluoroscopy time was utilized for this procedure. Reviewed by NICOLE Medel 02/17/2017 04:10 PEdited and Signed by Ventura Chambers MD 02/17/2017 05:43 P
--- NOTE | 2017-03-09 01:22 | ECWPNPC ---
PATIENT NAME: EDITH ROJAS : 1945 GENDER: FEMALE VISIT DATE: 02/17/2017 DISCHARGE DATE: 02/17/17 1242 VISIT LOCKED DATE TIME: PHYSICIAN: MARCELO ESPARZA RESOURCE: MARCELO ESPARZA REASON FOR APPOINTMENT 1. R. L3/4-L4/5 THERA. FACET. HISTORY OF PRESENT ILLNESS HISTORY OF PRESENT ILLNESS: PAIN THE PATIENT DESCRIBES THE PAIN... FALL RISK SCREENING: SCREENING :NO FALLS IN THE PAST YEAR CURRENT MEDICATIONS TAKING CALCIUM 600 + D 600-400 MG-UNIT TABLET 1 TABLET ORALLY DAILY, NOTES: 02-17-17 0700 TAKING VITAMIN D 400 UNIT CAPSULE 1 TABLET ORALLY ONCE A DAY, NOTES: 02-16-17 TAKING MULTIVITAMINS OTC TABLET 1 TABLET ORALLY ONCE A DAY, NOTES: 02-16-17 TAKING EPIPEN 2-HEATHER 0.3 MG/0.3ML (1:1000) DEVICE INJECTION INTRAMUSCULAR NEEDED TAKING ASPIR-81 81 MG TABLET DELAYED RELEASE 1 TABLET ORALLY ONCE A DAY, NOTES: 02-16-17 TAKING NAPROXEN 500 MG TABLET DELAYED RELEASE 1 TABLET ORALLY TWICE A DAY NEEDED, NOTES: 02-16-17 TAKING LIPITOR 20 MG TABLET 1 TABLET ORALLY ONCE A DAY, NOTES: 02-16-17 TAKING PRILOSEC 40 MG CAPSULE DELAYED RELEASE 1 CAPSULE ORALLY ONCE A DAY, NOTES: 02-17-17 0700 TAKING VESICARE 5 MG TABLET 1 TABLET ORALLY ONCE A DAY, NOTES: 02-16-17 MEDICATION LIST REVIEWED AND RECONCILED WITH THE PATIENT PAST MEDICAL HISTORY OSTEOPENIA BILAT PLANTAR FASCIATIS ENVIR. ALLERGIES (HAD ANAPHYLAXIS WITH RAGWEED SKIN TESTING), CARRIES EPI-PEN HEMORRHOIDS/DIVERTICULOSIS HYPERLIPIDEMIA HX. OF COLON POLYP CHRONIC BACK PAIN DDD SIJ DISEASE ALLERGIES ACTONEL: BACK PAIN: SIDE EFFECTS FLEXERIL: HIVES: ALLERGY PENICILLIN V POTASSIUM: HIVES: ALLERGY SULFA (FOR ALLERGY USE ONLY): HIVES: ALLERGY ELAVIL: INEFFECTIVE: LACK OF THERAPEUTIC EFFECT CYMBALTA: NAUSEA , RHODES, DIZZINESS: SIDE EFFECTS ENVIRONMENTAL: SNEEZING, WATERY EYES, SINUS CONGESTION: ALLERGY REVIEW OF SYSTEMS REVIEWED BY: PROVIDER: . CONSTITUTIONAL: ANY CHANGE IN YOUR MEDICAL CONDITION? YES, DROPPING BLADDER . CHILLS NO . FEVER NO . INFECTION: DO YOU HAVE NEW INFECTIONS? NO . DO YOU HAVE HISTORY OF MRSA? NO . MUSCULOSKELETAL: ANY NEW PATTERNS OF PAIN OR NUMBNESS? NO . GASTROENTEROLOGY: ANY NEW CHANGE IN BOWEL CONTROL? NO . GENITOURINARY: ANY NEW CHANGE IN BLADDER CONTROL? NO . IS THERE A CHANCE YOU COULD BE ? NO . HEMATOLOGY/LYMPH: DO YOU TAKE ANY BLOOD THINNERS? (FOR EXAMPLE- COUMADIN, PLAVIX, AGGRENOX, PLATEL, PRADAXA, OR XARELTO) NO . WHEN WAS YOUR LAST DOSE? DATE: TIME: . NEUROLOGY: HAVE YOU FALLEN IN THE PAST 6 MONTHS? YES . ANY NEW EXTREMITY NUMBNESS OR WEAKNESS? NO . CARDIOLOGY: DO YOU HAVE A PACEMAKER OR DEFIBRILLATOR? NO . RESPIRATORY: HAVE YOU BEEN SICK IN THE PAST WEEK? NO . FEVER NO . FLU LIKE SYMPTOMS? NO . COUGH NO . INTEGUMENTARY: DO YOU HAVE ANY RASHES OR OPEN SORES? NO . ALLERGIC/IMMUNO: ARE YOU ALLERGIC TO SHELLFISH OR IV DYE? NO . ANY NEW ALLERGIES? NO . PSYCHIATRIC: DO YOU HAVE THOUGHTS OF HURTING YOURSELF OR SOMEONE ELSE? NO . ARE YOU ABUSED, NEGLECTED, OR IN AN UNSAFE ENVIRONMENT? NO . ENDOCRINOLOGY: ARE YOU DIABETIC? NO . OTHER: DO YOU NEED ANY PRESCRIPTIONS? NO . IF YES, PLEASE LIST: ____ . ANY NEW PROBLEMS WITH YOUR MEDICATIONS? NO . WHEN DID YOU LAST EAT? 02-16-17 PM . WHEN DID YOU LAST DRINK? 02-17-17 0700 . WHAT DID YOU LAST DRINK? WATER . NAME OF PERSON DRIVING YOU HOME? MARIO ROJAS . DO YOU HAVE ANY OTHER QUESTIONS OR CONCERNS SHE IS A &QUOT;FAINTER&QUOT; . VITAL SIGNS WT 170 LBS, HT 64.75 IN, BMI 28.51 INDEX, BP 139/85 MM HG, HR 86 /MIN, RR 16 /MIN, TEMP 97.9 F, OXYGEN SAT % 100%, NA INITIALS VA 09:11. 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 I REVIEWED THE CHART AND DISCUSSED THE CASE WITH THE PATIENT. PATIENT WANTS IV SEDATION DUE TO THE DISCOMFORT, PAIN, AND ANXIETY THIS INJECTION WILL CAUSE HER. AFTER DISCUSSING RISK, ALTERNATIVES AND BENEFITS WE HAVE AGREED ON PROCEEDING WITH THE PROCEDURE TODAY WITH IV SEDATION. THE PATIENT AGREES.PROCEDURE NOTE:AFTER REVIEW THE CASE WITH THE PATIENT HE WAS BROUGHT TO THE PROCEDURE ROOM AND PLACED IN THE PRONE POSITION. THE TARGET AREA WAS CLEANED WITH CHLORAPREP SOLUTION AND DRAPED ASEPTICALLY. TARGET WAS SELECTED AT THE SUPERIOR BORDER OF THE RIGHT ILIAC CREST. LIDOCAINE 1% WAS USED LOCAL ANESTHETIC. SPINAL NEEDLE 22 GAUGE WAS ADVANCED UNDER FLUOROSCOPIC GUIDANCE UNTIL THE TARGET WAS REACHED. ISOVUE M DYE 30% 0.25 CC WAS INJECTED SHOWING ADEQUATE SPREAD OF THE DYE. THEN A SOLUTION OF 30 CC OF BUPIVACAINE 0.125% AND KENALOG 40 MG WAS INJECTED. PATIENT RECEIVED VERSED 2 MG AND FENTANYL 100 MCG IV DIVIDED DOSES. FACE TO FACE TIME WAS 17 MINUTES. THE PATIENT TOLERATES THE PROCEDURE WITHOUT COMPLICATIONS AND WAS SENT TO THE RECOVERY ROOM.POST-PROCEDURE NOTE:I WILL SEE THE PATIENT IN A FOLLOW UP IN THE NEXT FEW WEEKS. WE ARE LOOKING FOR LONG LASTING PAIN RELIEVE WITH THIS INTERVENTION. INSTRUCTIONS WERE GIVEN QUESTIONS WERE ANSWERED AND THE PATIENT REPORTS UNDERSTANDING AND AGREES. I, DAQUAN BRAY, DOCUMENTED THE ABOVE INFORMATION ACTING A SCRIBE FOR DR. ESPARZA. I HAVE REVIEWED THE ABOVE DOCUMENT, WRITTEN BY DAQUAN MERAZ AND I VERIFY THAT IT IS ACCURATE. DIAGNOSTIC [facility] FLUORO GUIDANCE (PAIN)[id number] PROCEDURE CODES 28602 INJ TENDON SHEATH/LIGAMENT 98144 MOD SED SAME PHYS/QHP 5/>YRS DISPOSITION & COMMUNICATION FOLLOW UP 3 WEEKS ELECTRONICALLY SIGNED BY MARCELO ESPARZA MD ON 03/08/2017 AT 06:34 PM EDT DISCLAIMER : THIS IS A VISIT SUMMARY EXTRACTED FROM THE [employer] CHART. IT IS NOT A COPY OF THE [employer] PROGRESS NOTE. ABRAHAM
== END ==
LOC: M PAIN 09:00
PROVIDERS: ATTEND Anesthesiology
DX: G89.29 Other chronic pain (principal); M46.06 Spinal enthesopathy, lumbar region; J30.2 Other seasonal allergic rhinitis; E78.2 Mixed hyperlipidemia; K21.0 Gastro-esophageal reflux disease with esophagitis; M85.80 Other specified disorders of bone density and structure, unspecified site; Z88.8 Allergy status to other drugs, medicaments and biological substances; Z88.0 Allergy status to penicillin; Z88.2 Allergy status to sulfonamides; Z79.82 Long term (current) use of aspirin; Z79.899 Other long term (current) drug therapy
CPT/HCPCS: 20550; 77002; 99152; J2250; J3010; J3301; Q9967

== ENCOUNTER → 2017-03-11 | Outpatient (CLI) | payer MEDICARE, BC ==
[~2017-03-11] MED LIST changes: -BUPIVACAINE HCL 0.25% 30 ML VIAL As Ordered ONE; -ISOVUE-M 300 61% 15ML VIAL (Q9967) As Ordered ONE; -LIDOCAINE 1% SDV INJ 30 ML VIAL As Ordered ONE; -MIDAZOLAM INJ 2 MG/2 ML VIAL (J2250) As Ordered ONE; -TRIAMCINOLONE ACETONIDE SUSP 40 MG/ML VIAL (J3301) As Ordered ONE; -fentaNYL 100 MCG/2 ML INJECTION (J3010) As Ordered ONE
--- NOTE | 2017-03-28 23:54 | ECWPNPC ---
PATIENT NAME: EDITH ROJAS : 1945 GENDER: FEMALE VISIT DATE: 03/11/2017 DISCHARGE DATE: 03/11/17 1152 VISIT LOCKED DATE TIME: PHYSICIAN: MARCELO ESPARZA RESOURCE: MARCELO ESPARZA REASON FOR APPOINTMENT 1. POST INJ HISTORY OF PRESENT ILLNESS HISTORY OF PRESENT ILLNESS: PAIN THE PATIENT DESCRIBES THE PAIN... 71 YEAR OLD FEMALE PATIENT WITH A HISTORY OF CHRONIC LOW BACK PAIN. PATIENT DESCRIBES THE PAIN ACHING, SHARP, STABBING, TENDER, SORE, AND HAVING IT ALL THE TIME WITH A PAIN SCORE OF 5/10 AT TODAY'S VISIT. MRS. ROJAS HAD A SACROILIAC JOINT INJECTION DONE ON 12/29/2015. PATIENT HAS STATED THAT THE INJECTION DID NOT WORK IN AIDING ANY PAIN RELIEF. PATIENT SAID THAT SHE USED TO HAVE THE PAIN MORE AT NIGHT TIME BUT SINCE HAVING THE INJECTION SHE NOW HAD THE PAIN ALL DAY AND NIGHT. MRS. ROJAS STATES THAT SHE DOES NOT HAVE ANY PAIN GOING DOWN HER LEGS TODAY BUT SAYS THE WORSE PAIN IS ON HER RT SIDE AND FEELS LIKE THERE IS A BIG KNOT NEAR THE SACROILIAC JOINT. FALL RISK SCREENING: SCREENING :NO FALLS IN THE PAST YEAR CURRENT MEDICATIONS TAKING CALCIUM 600 + D 600-400 MG-UNIT TABLET 1 TABLET ORALLY DAILY TAKING VITAMIN D 400 UNIT CAPSULE 1 TABLET ORALLY ONCE A DAY TAKING MULTIVITAMINS OTC TABLET 1 TABLET ORALLY ONCE A DAY TAKING EPIPEN 2-HEATHER 0.3 MG/0.3ML (1:1000) DEVICE INJECTION INTRAMUSCULAR NEEDED TAKING ASPIR-81 81 MG TABLET DELAYED RELEASE 1 TABLET ORALLY ONCE A DAY TAKING NAPROXEN 500 MG TABLET DELAYED RELEASE 1 TABLET ORALLY TWICE A DAY NEEDED TAKING LIPITOR 20 MG TABLET 1 TABLET ORALLY ONCE A DAY TAKING PRILOSEC 40 MG CAPSULE DELAYED RELEASE 1 CAPSULE ORALLY ONCE A DAY TAKING VESICARE 5 MG TABLET 1 TABLET ORALLY ONCE A DAY MEDICATION LIST REVIEWED AND RECONCILED WITH THE PATIENT PAST MEDICAL HISTORY OSTEOPENIA BILAT PLANTAR FASCIATIS ENVIR. ALLERGIES (HAD ANAPHYLAXIS WITH RAGWEED SKIN TESTING), CARRIES EPI-PEN HEMORRHOIDS/DIVERTICULOSIS HYPERLIPIDEMIA HX. OF COLON POLYP CHRONIC BACK PAIN DDD SIJ DISEASE ALLERGIES ACTONEL: BACK PAIN: SIDE EFFECTS FLEXERIL: HIVES: ALLERGY PENICILLIN V POTASSIUM: HIVES: ALLERGY SULFA (FOR ALLERGY USE ONLY): HIVES: ALLERGY ELAVIL: INEFFECTIVE: LACK OF THERAPEUTIC EFFECT CYMBALTA: NAUSEA , RHODES, DIZZINESS: SIDE EFFECTS ENVIRONMENTAL: SNEEZING, WATERY EYES, SINUS CONGESTION: ALLERGY REVIEW OF SYSTEMS REVIEWED BY: PROVIDER: MARCELO ESPARZA MD . CONSTITUTIONAL: ANY CHANGE IN YOUR MEDICAL CONDITION? ENDOMETRIAL BX SCHEDULED . CHILLS NO . FEVER NO . INFECTION: DO YOU HAVE NEW INFECTIONS? NO . DO YOU HAVE HISTORY OF MRSA? NO . MUSCULOSKELETAL: ANY NEW PATTERNS OF PAIN OR NUMBNESS? YES, PAIN IS WORSE AND NOW SHE HAS THE PAIN ALL THE TIME. HAS A KNOT IN AREA WHERE INJECTION WAS DONE ALSO HAVING PAIN ON THE LEFT SIDE NOW TOO. . GASTROENTEROLOGY: ANY NEW CHANGE IN BOWEL CONTROL? NO . GENITOURINARY: ANY NEW CHANGE IN BLADDER CONTROL? NO . IS THERE A CHANCE YOU COULD BE ? NO . HEMATOLOGY/LYMPH: DO YOU TAKE ANY BLOOD THINNERS? (FOR EXAMPLE- COUMADIN, PLAVIX, AGGRENOX, PLATEL, PRADAXA, OR XARELTO) NO . WHEN WAS YOUR LAST DOSE? DATE: TIME: . NEUROLOGY: HAVE YOU FALLEN IN THE PAST 6 MONTHS? NO . ANY NEW EXTREMITY NUMBNESS OR WEAKNESS? NO . CARDIOLOGY: DO YOU HAVE A PACEMAKER OR DEFIBRILLATOR? NO . RESPIRATORY: HAVE YOU BEEN SICK IN THE PAST WEEK? NO . FEVER NO . FLU LIKE SYMPTOMS? NO . COUGH NO . INTEGUMENTARY: DO YOU HAVE ANY RASHES OR OPEN SORES? NO . ALLERGIC/IMMUNO: ARE YOU ALLERGIC TO SHELLFISH OR IV DYE? NO . ANY NEW ALLERGIES? NO . PSYCHIATRIC: DO YOU HAVE THOUGHTS OF HURTING YOURSELF OR SOMEONE ELSE? NO . ARE YOU ABUSED, NEGLECTED, OR IN AN UNSAFE ENVIRONMENT? NO . ENDOCRINOLOGY: ARE YOU DIABETIC? NO . OTHER: DO YOU NEED ANY PRESCRIPTIONS? NO . IF YES, PLEASE LIST: ____ . ANY NEW PROBLEMS WITH YOUR MEDICATIONS? NO . WHEN DID YOU LAST EAT? ____ . WHEN DID YOU LAST DRINK? ____ . WHAT DID YOU LAST DRINK? ____ . NAME OF PERSON DRIVING YOU HOME? ____ . DO YOU HAVE ANY OTHER QUESTIONS OR CONCERNS NO . VITAL SIGNS WT 168 LBS, HT 64.75 IN, BMI 28.17 INDEX, BP 150/80 MM HG, HR 82 /MIN, RR 16 /MIN, TEMP 97.5 F, OXYGEN SAT % 94%, NA INITIALS AW 1052, REVIEWED BY: [id number]. EXAMINATION : PATIENT IS ALERT O X 3 AND COOPERATIVE. THERE IS TENDERNESS NEAR THE RT SACROILIAC JOINT. LUMBAR MRI DONE ON 08/15/2015 SHOWS A DIFFUSE DISC BULGE AT L2-3, L3-4, L4-5, AND L5-S1. THERE IS MINIMAL COMPRESSION OF THE THECAL SAC. THERE IS HYPERTROPHY OF THE POSTERIOR ARTICULATING FACETS. ASSESSMENTS INTERVERTEBRAL DISC DISORDERS WITH RADICULOPATHY, LUMBAR REGION - M51.16 (PRIMARY) INTERVERTEBRAL DISC DISORDERS WITH RADICULOPATHY, LUMBOSACRAL REGION - M51.17 TREATMENT OTHERS START CELEBREX CAPSULE, 200 MG, 1 CAPSULE WITH FOOD, ORALLY, ONCE A DAY, 30 DAY(S), 30 CAPSULE, REFILLS 0 CLINICAL NOTES: WE DISCUSSED SEVERAL ISSUES WITH MRS. ROJAS'S PAIN MANAGEMENT CASE. SEEING THAT THE INJECTION DID NOT AIDE THE PATIENTS PAIN RELIEF; I AM PRESCRIBING CELEBREX. I ADVISED THE PATIENT THAT IF THERE ARE ANY ADVERSE SIDE EFFECTS THEN TO STOP THE MEDICATION. MRS. ROJAS WILL FOLLOWUP WITH CODING AND REIMBURSEMENT SPECIALIST IN 1 MONTH TO DISCUSS HOW THE MEDICATION IS WORKING. MY INTENTION IS NOT TO KEEP HER IN THIS NSAID FOR SPACE CONTROLLER. I AM LOOKING TO HELP HER FOR THE NEXT MONTH, MAINLY FOR THE POSTPROCEDURE PAIN. THE PATIENT WAS ADVICE TO CALL US IF SHE HAS ANY CONCERNS. I LUH RODRIGUEZ DOCUMENTED THE ABOVE INFORMATION ACTING A CHIEF HYDROELECTRIC STATION OPERATOR FOR DR. ESPARZA. I HAVE REVIEWED THE ABOVE DOCUMENT WRITTEN BY LUH RODRIGUEZ SCRIBMonique AND I VERIFY THAT IT IS ACCURATE. PROCEDURE CODES FA211 ESTABILISHED PATIENT [facility] CHARGE 53791 OFFICE/OUTPATIENT VISIT EST G8427 DOC MEDS VERIFIED W/PT OR RE G8730 PAIN ASSESS POS TOOL F/U PLAN DOC DISPOSITION & COMMUNICATION FOLLOW UP 6 WEEKS ELECTRONICALLY SIGNED BY MARCELO ESPARZA MD ON 03/28/2017 AT 08:38 PM EDT DISCLAIMER : THIS IS A VISIT SUMMARY EXTRACTED FROM THE [employer] CHART. IT IS NOT A COPY OF THE [employer] PROGRESS NOTE. ABRAHAM
== END ==
LOC: M PAIN 10:30
PROVIDERS: ATTEND Anesthesiology
DX: G89.29 Other chronic pain (principal); M51.16 Intervertebral disc disorders with radiculopathy, lumbar region; M51.17 Intervertebral disc disorders with radiculopathy, lumbosacral region; M85.80 Other specified disorders of bone density and structure, unspecified site; E78.2 Mixed hyperlipidemia; K21.0 Gastro-esophageal reflux disease with esophagitis; Z88.0 Allergy status to penicillin; Z88.2 Allergy status to sulfonamides; Z88.8 Allergy status to other drugs, medicaments and biological substances; J30.89 Other allergic rhinitis; Z79.82 Long term (current) use of aspirin; Z79.899 Other long term (current) drug therapy

== ENCOUNTER → 2017-04-11 | Outpatient (CLI) | payer MEDICARE, BC ==
--- NOTE | 2017-04-25 01:09 | ECWPNPC ---
PATIENT NAME: EDITH ROJAS : 1945 GENDER: FEMALE VISIT DATE: 04/11/2017 DISCHARGE DATE: 04/11/17 1151 VISIT LOCKED DATE TIME: PHYSICIAN: LENARD SWIFT RESOURCE: LENARD SWIFT REASON FOR APPOINTMENT 1. LOW BACK PAIN HISTORY OF PRESENT ILLNESS HISTORY OF PRESENT ILLNESS: HERE FOR F/U OF CHRONIC LOW BACK PAIN.HAD RIGHT SIJ ON 12-28-16.REPORTED MINIMAL IMPROVEMENT IN PAIN POST PROCEDURE.HAS NO PAIN DURING DAYTIME.PAIN OCCURS ONLY AT NIGHT AND AGGREVATED IN AM.STOPPED PT PER MY ORDER AND HAS ATTENDED 5 SESSIONS AND DOESNT NOTICE ANY IMPROVEMENT.RATING PAIN 5/10 VAS IN AM.PAIN IS NON RADICULAR PAIN IS DESCRIBED INTERMITTENT THROBBING AND TENDERNESS RIGHT LOW BACK.HAS TRIALED MULTIPLE DIFFERENT MEDICATIONS WITH EITHER NO IMPROVEMENT OR SIDE EFFECTS TO INCLUDE AMITRIPTYLINE,GABAPENTIN AND CYMBATA. PAIN THE PATIENT DESCRIBES THE PAIN... THE PATIENT DESCRIBES THE PAIN... THE PATIENT DESCRIBES THE PAIN... FALL RISK SCREENING: SCREENING :NO FALLS IN THE PAST YEAR CURRENT MEDICATIONS TAKING EPIPEN 2-HEATHER 0.3 MG/0.3ML (1:1000) DEVICE INJECTION INTRAMUSCULAR NEEDED TAKING ASPIR-81 81 MG TABLET DELAYED RELEASE 1 TABLET ORALLY ONCE A DAY TAKING FLAXSEED OIL 1000 MG CAPSULE ORALLY TAKING CALCIUM 600 + D 600-400 MG-UNIT TABLET 1 TABLET ORALLY DAILY TAKING VITAMIN D 400 UNIT CAPSULE 1 TABLET ORALLY ONCE A DAY TAKING MULTIVITAMINS OTC TABLET 1 TABLET ORALLY ONCE A DAY TAKING LIPITOR 20 MG TABLET 1 TABLET ORALLY ONCE A DAY TAKING PRILOSEC 40 MG CAPSULE DELAYED RELEASE 1 CAPSULE ORALLY ONCE A DAY NOT-TAKING NAPROXEN 500 MG TABLET DELAYED RELEASE 1 TABLET ORALLY TWICE A DAY NEEDED NOT-TAKING VESICARE 5 MG TABLET 1 TABLET ORALLY ONCE A DAY NOT-TAKING CELEBREX 200 MG CAPSULE 1 CAPSULE WITH FOOD ORALLY ONCE A DAY MEDICATION LIST REVIEWED AND RECONCILED WITH THE PATIENT PAST MEDICAL HISTORY OSTEOPENIA BILAT PLANTAR FASCIATIS ENVIR. ALLERGIES (HAD ANAPHYLAXIS WITH RAGWEED SKIN TESTING), CARRIES EPI-PEN HEMORRHOIDS/DIVERTICULOSIS HYPERLIPIDEMIA HX. OF COLON POLYP CHRONIC BACK PAIN DDD SIJ DISEASE ALLERGIES ACTONEL: BACK PAIN: SIDE EFFECTS FLEXERIL: HIVES: ALLERGY PENICILLIN V POTASSIUM: HIVES: ALLERGY SULFA (FOR ALLERGY USE ONLY): HIVES: ALLERGY ELAVIL: INEFFECTIVE: LACK OF THERAPEUTIC EFFECT CYMBALTA: NAUSEA , RHODES, DIZZINESS: SIDE EFFECTS ENVIRONMENTAL: SNEEZING, WATERY EYES, SINUS CONGESTION: ALLERGY REVIEW OF SYSTEMS REVIEWED BY: PROVIDER: LENARD SUGGS . CONSTITUTIONAL: ANY CHANGE IN YOUR MEDICAL CONDITION? YES PT HAVING AN ENDOMETRIAL BIOPSY THIS WEEK. . CHILLS NO . FEVER NO . INFECTION: DO YOU HAVE NEW INFECTIONS? NO . DO YOU HAVE HISTORY OF MRSA? NO . MUSCULOSKELETAL: ANY NEW PATTERNS OF PAIN OR NUMBNESS? NO . GASTROENTEROLOGY: ANY NEW CHANGE IN BOWEL CONTROL? NO . GENITOURINARY: ANY NEW CHANGE IN BLADDER CONTROL? NO . IS THERE A CHANCE YOU COULD BE ? NO . HEMATOLOGY/LYMPH: DO YOU TAKE ANY BLOOD THINNERS? (FOR EXAMPLE- COUMADIN, PLAVIX, AGGRENOX, PLATEL, PRADAXA, OR XARELTO) NO . WHEN WAS YOUR LAST DOSE? DATE: TIME: . NEUROLOGY: HAVE YOU FALLEN IN THE PAST 6 MONTHS? NO . ANY NEW EXTREMITY NUMBNESS OR WEAKNESS? NO . CARDIOLOGY: DO YOU HAVE A PACEMAKER OR DEFIBRILLATOR? NO . RESPIRATORY: HAVE YOU BEEN SICK IN THE PAST WEEK? NO . FEVER NO . FLU LIKE SYMPTOMS? NO . COUGH NO . INTEGUMENTARY: DO YOU HAVE ANY RASHES OR OPEN SORES? NO . ALLERGIC/IMMUNO: ARE YOU ALLERGIC TO SHELLFISH OR IV DYE? NO . ANY NEW ALLERGIES? NO . PSYCHIATRIC: DO YOU HAVE THOUGHTS OF HURTING YOURSELF OR SOMEONE ELSE? NO . ARE YOU ABUSED, NEGLECTED, OR IN AN UNSAFE ENVIRONMENT? NO . ENDOCRINOLOGY: ARE YOU DIABETIC? NO . OTHER: DO YOU NEED ANY PRESCRIPTIONS? NO . IF YES, PLEASE LIST: ____ . ANY NEW PROBLEMS WITH YOUR MEDICATIONS? NO . WHEN DID YOU LAST EAT? ____ . WHEN DID YOU LAST DRINK? ____ . WHAT DID YOU LAST DRINK? ____ . NAME OF PERSON DRIVING YOU HOME? ____ . DO YOU HAVE ANY OTHER QUESTIONS OR CONCERNS YES PT WOULD LIKE TO DISCUSS OTHER METHODS OF PAIN CONTROL, SUCH INVERSION THERAPY, ULTRASONIC HEAT, AND IS LOOKING FOR IDEAS. . VITAL SIGNS WT 169 LBS, HT 64.75 IN, BMI 28.34 INDEX, BP 144/90 MM HG, HR 90 /MIN, RR 18 /MIN, TEMP 97.5 F, OXYGEN SAT % 95%, SAFE IN ENV? (Y/N) YES, REVIEWED BY: JESSICA. EXAMINATION GENERAL EXAMINATION: GENERAL APPEARANCE:PLEASANT. LUNGS:LUNG IGLESIAS ARE CLEAR TO AUSCULTATION BILATERALLY. GOOD MOVEMENT OF AIR. HEART:S1, S2 IN A REGULAR RATE AND RHYTHM. NO SIGNIFICANT MURMURS, RUBS OR GALLOPS NOTED. DIAGNOSTIC DATA:BILAT. SIJ 05-23-14-MINIMAL OSTEOARTHRITIS SIJ BILAT.L/S SPINE [id number].MRI L/S [id number]-REVIEWED. LUMBAR SPINE/LOWER BACK: INSPECTION:NORMAL CURVATURE OF SPINE. PALPATION:LARGE TRIGGER POINT NOTED RIGHT LUMBAR PARASPINAL AND OVER RIGHT PIRIFORMIS MUSCLE. MOTOR SYSTEM:5/5 BLE. SENSORY EXAM:NORMAL BILATERAL LE. REFLEXES:2/4 AND SYMMETRIC BLE. GAIT:UNREMARKABLE. 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 PROCEDURE CODES FA211 ESTABILISHED PATIENT [facility] CHARGE G8730 PAIN ASSESS POS TOOL F/U PLAN DOC G8427 DOC MEDS VERIFIED W/PT OR RE DISPOSITION & COMMUNICATION FOLLOW UP 4 WEEKS ELECTRONICALLY SIGNED BY IFEANYI ROSSI ON 04/24/2017 AT 11:32 PM EDT DISCLAIMER : THIS IS A VISIT SUMMARY EXTRACTED FROM THE [employer] CHART. IT IS NOT A COPY OF THE [employer] PROGRESS NOTE. ABRAHAM
== END ==
LOC: M PAIN 10:30
PROVIDERS: ATTEND Nurse Practitioner Family
DX: G89.29 Other chronic pain (principal); M47.816 Spondylosis without myelopathy or radiculopathy, lumbar region; M79.1 Myalgia; M85.80 Other specified disorders of bone density and structure, unspecified site; E78.2 Mixed hyperlipidemia; K21.9 Gastro-esophageal reflux disease without esophagitis; I10 Essential (primary) hypertension; Z88.0 Allergy status to penicillin; Z88.2 Allergy status to sulfonamides; Z88.8 Allergy status to other drugs, medicaments and biological substances; J30.89 Other allergic rhinitis; Z79.82 Long term (current) use of aspirin; Z79.899 Other long term (current) drug therapy

== ENCOUNTER 2017-04-15 05:44 | Day surgery (SDC) | payer MEDICARE, BC ==
[~2017-04-15] VITALS: Ht 165.1 cm; Wt 76.2 kg
[2017-04-15 06:14] LABS: MEAN CORPUSCULAR HEMOGLOBIN 34.5 pg (27.0-33.0); MEAN CORPUSCULAR HGB CONC 34.8 g/dl (32.0-36.5); MEAN CORPUSCULAR VOLUME 99.2 fl (80.0-96.0); RED CELL DISTRIBUTION WIDTH 11.7 % (11.5-14.5); WHITE BLOOD COUNT 4.7 K/mm3 (4.0-10.0)
[2017-04-15] MEDS ORDERED: LIDOCAINE 1% MDV 20ML VIAL SC ONE (06:15)
[2017-04-15] MEDS ORDERED: LR 1,000 ML IV ONE (06:15)
[2017-04-15] MEDS ORDERED: MIDAZOLAM INJ 2 MG/2 ML VIAL (J2250) As Ordered ONE (07:14)
[2017-04-15] MEDS ORDERED: PROPOFOL 200 MG/20 ML VIAL As Ordered ONE (07:15)
[2017-04-15] MEDS ORDERED: LIDOCAINE 2% INJ 100 MG/5 ML SDV (FOR ANES.) As Ordered ONE (07:15)
[2017-04-15] MEDS ORDERED: fentaNYL 100 MCG/2 ML INJECTION (J3010) As Ordered ONE (07:15)
[2017-04-15] MEDS ORDERED: BUPIVACAINE HCL 0.25% 30 ML VIAL As Ordered ONE (07:38)
[2017-04-15] MEDS ORDERED: KETOROLAC 30 MG/ML VIAL (J1885) As Ordered ONE (08:27)
[2017-04-15] MEDS ORDERED: PERCOCET 5MG/325MG TAB As Ordered ONE (08:39)
[2017-04-15] MEDS: PERCOCET 5MG/325MG TAB PO PRN ×2 (08:41→09:03)
--- NOTE | 2017-04-15 08:56 | RO ---
DATE OF PROCEDURE: 04/15/2017 PREOPERATIVE DIAGNOSIS: Postmenopausal thickened endometrium. POSTOPERATIVE DIAGNOSIS: Postmenopausal bleeding. PROCEDURE PERFORMED: Hysteroscopy, dilatation and curettage. SURGEON: Marilyn Bray MD ANESTHESIA: General via laryngeal mask airway. SPECIMENS: Endometrial curettings. ESTIMATED BLOOD LOSS: 5 mL. IV FLUIDS: 500 mL of Lactated Ringer's solution. OPERATIVE FINDINGS: Patient was sounded to approximately 5.5 cm. Hysteroscopic findings revealed an atrophic endometrium. Bilateral ostia were visualized. ANTIBIOTICS: None. DESCRIPTION OF OPERATION: After informed consent was obtained and written consent was obtained, the patient was brought to the operating room where laryngeal mask airway was obtained. She was then placed in lithotomy position and was prepped and draped in a normal sterile fashion. A time out was then performed in the operating room identifying the patient, procedure to be performed as well as drug allergies. A bivalve speculum was then placed revealing a stenotic cervical os. The cervix was first dilated using a lacrimal dilators followed by sequential dilation with Hanks dilators. Hysteroscope was then advanced through the cervical os. The endometrium was surveyed showing an atrophic endometrium with bilateral ostia visualized. Hysteroscope was then removed. Sharp curette was then advanced through the cervical os to the level of the fundus. The uterus was curetted in a 360 degree fashion with minimal amounts of tissue obtained. Instruments were then removed from the vagina, tenaculum was removed from the cervix. Tenaculum sites were inspected and noted to be hemostatic. Speculum was removed. Patient was then taken out of lithotomy position, was awakened from general anesthesia and taken to the recovery room in stable condition. Counts were correct. MTDD
[2017-04-15] MEDS ORDERED: fentaNYL 100 MCG/2 ML INJECTION (J3010) IV PRN (09:00)
[2017-04-15] MEDS ORDERED: METOCLOPRAMIDE INJ 10MG/2ML VIAL (J2765) IV PRN (09:00)
[2017-04-15] MEDS ORDERED: LR 1,000 ML IV SCH (09:00)
[2017-04-15] MEDS ORDERED: PERCOCET 5MG/325MG TAB PO PRN (09:00)
[2017-04-15] MEDS ORDERED: ONDANSETRON 4MG/2ML VIAL (J2405) IV PRN (09:00)
[2017-04-15 09:45] VITALS: BP 134/91
[2017-04-15] MEDS ORDERED: KETOROLAC 30 MG/ML VIAL (J1885) IV SCH (14:00)
== END 2017-04-15 09:58 | disposition home or self-care (01) ==
LOC: M SDC 05:44
PROVIDERS: ATTEND Obstetrics & Gynecology
DX: N95.0 Postmenopausal bleeding (principal); I10 Essential (primary) hypertension; Z79.82 Long term (current) use of aspirin; E78.5 Hyperlipidemia, unspecified; K21.9 Gastro-esophageal reflux disease without esophagitis; M81.0 Age-related osteoporosis without current pathological fracture; Z88.0 Allergy status to penicillin; Z88.2 Allergy status to sulfonamides; Z79.899 Other long term (current) drug therapy
CPT/HCPCS: 36415; 58558; 85027; 86850; 86900; 86901; 88305; J1885; J2250; J3010

== ENCOUNTER → 2017-05-24 | Outpatient (CLI) | payer MEDICARE, BC | LOC: M PAIN 10:30 | PROVIDERS: ATTEND Nurse Practitioner Family | DX: M47.816 Spondylosis without myelopathy or radiculopathy, lumbar region (principal); M79.1 Myalgia; M54.5 Low back pain; G89.29 Other chronic pain; I10 Essential (primary) hypertension; E78.5 Hyperlipidemia, unspecified; Z79.82 Long term (current) use of aspirin; Z79.899 Other long term (current) drug therapy; J30.9 Allergic rhinitis, unspecified; Z87.891 Personal history of nicotine dependence; Z88.0 Allergy status to penicillin; Z88.2 Allergy status to sulfonamides; Z88.8 Allergy status to other drugs, medicaments and biological substances ==

== ENCOUNTER → 2017-05-25 | Outpatient (CLI) | payer MEDICARE, BC ==
[2017-05-25 12:05] LABS: BLOOD UREA NITROGEN 18 MG/DL (7-18); CREATININE FOR GFR 0.85 MG/DL (0.55-1.02); GLOMERULAR FILTRATION RATE > 60.0 (>39)
== END ==
LOC: M LAB 11:11
PROVIDERS: ATTEND Nurse Practitioner Family
DX: M54.5 Low back pain (principal)

== ENCOUNTER → 2017-06-15 | Outpatient (CLI) | payer MEDICARE, BC ==
--- NOTE | 2017-07-06 00:33 | ECWPNPC ---
PATIENT NAME: EDITH ROJAS : 1945 GENDER: FEMALE VISIT DATE: 06/15/2017 DISCHARGE DATE: 06/15/17 1702 VISIT LOCKED DATE TIME: PHYSICIAN: MARCELO ESPARZA RESOURCE: MARCELO ESPARZA REASON FOR APPOINTMENT 1. BACK PAIN HISTORY OF PRESENT ILLNESS HISTORY OF PRESENT ILLNESS: PAIN THE PATIENT DESCRIBES THE PAIN... 72 YEAR OLD FEMALE PATIENT WITH HISTORY OF CHRONIC LOW BACK PAIN. PATIENT DESCRIBES THE PAIN ACHING, SHARP, TENDER, THROBBING WITH THE PAIN COMING AND GOING AND A PAIN SCORE OF 4/10. PATIENT REPORTS TAKING OVER THE COUNTER MEDICATION FOR PAIN RELIEF. PATIENT REPORTS SHE WOULD LIKE TO TRY IONOPHORESIS AT PHYSICAL THERAPY TO SEE IF IT WILL AID IN PAIN RELIEF. PATIENT DENIES UNEXPLAINABLE WEIGHT LOSS, FEVER, CHILLS, NEW CHANGES ON HER URINARY OR BOWEL CONTROL. FALL RISK SCREENING: SCREENING :NO FALLS IN THE PAST YEAR CURRENT MEDICATIONS TAKING EPIPEN 2-HEATHER 0.3 MG/0.3ML (1:1000) DEVICE INJECTION INTRAMUSCULAR NEEDED TAKING ASPIR-81 81 MG TABLET DELAYED RELEASE 1 TABLET ORALLY ONCE A DAY TAKING FLAXSEED OIL 1000 MG CAPSULE ORALLY TAKING CALCIUM 600 + D 600-400 MG-UNIT TABLET 1 TABLET ORALLY DAILY TAKING VITAMIN D 400 UNIT CAPSULE 1 TABLET ORALLY ONCE A DAY TAKING MULTIVITAMINS OTC TABLET 1 TABLET ORALLY ONCE A DAY TAKING LIPITOR 20 MG TABLET 1 TABLET ORALLY ONCE A DAY TAKING PRILOSEC 40 MG CAPSULE DELAYED RELEASE 1 CAPSULE ORALLY ONCE A DAY TAKING CHLORTHALIDONE 25 MG TABLET 1/2 TABLET IN THE MORNING ORALLY ONCE A DAY TAKING POTASSIUM 1 TAB ORAL DAILY NOT-TAKING NAPROXEN 500 MG TABLET DELAYED RELEASE 1 TABLET ORALLY TWICE A DAY NEEDED NOT-TAKING VESICARE 5 MG TABLET 1 TABLET ORALLY ONCE A DAY NOT-TAKING CELEBREX 200 MG CAPSULE 1 CAPSULE WITH FOOD ORALLY ONCE A DAY MEDICATION LIST REVIEWED AND RECONCILED WITH THE PATIENT PAST MEDICAL HISTORY BILAT PLANTAR FASCIATIS OSTEOPENIA ENVIR. ALLERGIES (HAD ANAPHYLAXIS WITH RAGWEED SKIN TESTING), CARRIES EPI-PEN HEMORRHOIDS/DIVERTICULOSIS HYPERLIPIDEMIA HX. OF COLON POLYP CHRONIC BACK PAIN DDD SIJ DISEASE HYPERTENSION DANII ALLERGIES ACTONEL: BACK PAIN: SIDE EFFECTS FLEXERIL: HIVES: ALLERGY PENICILLIN V POTASSIUM: HIVES: ALLERGY SULFA (FOR ALLERGY USE ONLY): HIVES: ALLERGY ELAVIL: INEFFECTIVE: LACK OF THERAPEUTIC EFFECT CYMBALTA: NAUSEA , RHODES, DIZZINESS: SIDE EFFECTS ENVIRONMENTAL: SNEEZING, WATERY EYES, SINUS CONGESTION: ALLERGY SURGICAL HISTORY X2 D & C 1997,2000 VAGINAL CYST 04/28 GANGLION CYST R HAND 07/25 PARATHYROIDECTOMY ADENOMA - DR HERRERA 04/29 COLONOSCOPY, HAS HAD 3 - PRIOR POLYPS, ANDREI - DIVERTICULOSIS, (NO POLYPS IN 08) 11/29 TONSILLECTOMY AGE 7 2 BASAL CELL CANCER SURGERIES ON FACE 2016 SOCIAL HISTORY GENERAL: TOBACCO USE ARE YOU A:FORMER SMOKER OVER 20YRS AGO HOW LONG HAS IT BEEN SINCE YOU LAST SMOKED?> 10 YEARS ALCOHOL SCREENING DID YOU HAVE A DRINK CONTAINING ALCOHOL IN THE PAST YEAR?YES HOW OFTEN DID YOU HAVE A DRINK CONTAINING ALCOHOL IN THE PAST YEAR?MONTHLY OR LESS (1 POINT) HOW MANY DRINKS DID YOU HAVE ON A TYPICAL DAY WHEN YOU WERE DRINKING IN THE PAST YEAR?1 OR 2 (0 POINTS) HOW OFTEN DID YOU HAVE SIX OR MORE DRINKS ON ONE OCCASION IN THE PAST YEAR?NEVER (0 POINTS) POINTS1 INTERPRETATIONNEGATIVE RECREATIONAL DRUG USE DRUG USE?NO CAFFEINE CAFFEINE USE?YES HOW OFTEN AND HOW MUCH? 3 CUPS/DAY SEXUAL HX HAD SEX IN THE LAST 12 MONTHS (VAGINAL, ORAL, OR ANAL)?NO HAVE YOU EVER HAD AN STD?NO HIV / HEP-C SCREENING HIV TEST OFFERED TO PATIENT:NO N/A HEP-C TEST OFFERED TO PATIENT:YES DATE OFFERED:08/04/2016 TEST ACCEPTED:NO REASON:PATIENT DECLINED OCCUPATION: EDUCATION - RETIRED TEACHER. DIET: REGULAR, LOW FAT, LOW CHOLESTEROL. EXERCISE: WALKS OR BIKES DAILY (LESS IN WINTER). MARITAL STATUS: . OTHERS AT HOME: SPOUSE. PETS: NONE. EPISCOPAL [id number] NONE LANGUAGE LANGUAGES SPOKEN:KYRGYZ EDUCATION LEVEL OF EDUCATION:COLLEGE LEARNING BARRIERS / SPECIAL NEEDS CHANGE FROM LAST VISIT?NO BARRIERS TO LEARNING?NO HEARING IMPAIRED?NO VISION IMPAIRED?YES :CORRECTIVE LENSES COGNITIVELY IMPAIRED?NO READINESS TO LEARN?YES LEARNING PREFERENCES?NO LEARNING CAPABILITIES PRESENT?YES EMOTIONAL BARRIERS?NO SPECIAL DEVICES?NO PAPER SUPERVISOR NEEDED?NO NEW PATIENT PAIN DIARY FROM 0-10, WHAT NUMBER IS YOUR PAIN TODAY? 3. PAIN CLINIC PFS, CLERGY, PUBLIC HEALTH REFERRALS PFS REFERRAL NEEDED?NO CLERGY REFERRAL NEEDED?NO PUBLIC HEALTH REFERRAL NEEDED?NO HAS THE PATIENT BEEN EDUCATED REGARDING HIS/HER PLAN OF CARE?YES HAS THE PATIENT BEEN EDUCATED REGARDING PAIN, THE RISK FOR PAIN, THE IMPORTANCE OF EFFECTIVE PAIN MANAGEMENT, AND THE PAIN ASSESSMENT PROCESS?YES ADVANCE DIRECTIVES HEALTH CARE PROXY?YES NAME OF HCP , LIZETTE ROJAS CONTACT # FOR HCP [phone] (C) DO YOU HAVE A COPY WITH YOU?NO DO YOU HAVE A DNR?NO WOULD YOU LIKE MORE INFORMATION?NO LIVING WILL?YES DO YOU HAVE A COPY WITH YOU?NO POWER OF LINING FELLER?YES NAME OF POA? , LIZETTE PHONE # OF POA? ABOVE DO YOU HAVE A COPY WITH YOU?YES HAVE YOU HAD A COPY OF ANY ADVANCED DIRECTIVE (LISTED ABOVE) ON A PREVIOUS MEDICAL RECORDS AT [facility]?NO TRAVEL OUTSIDE US: YES, [facility] [place], [place], [place], [place], [place]. DOMESTIC VIOLENCE NONE. 11/18/16 PLAN OF CARE FOR THE PAIN CENTER REVIEWED WITH PT. AND SHE VERBALIZED UNDERSTANDING. HOSPITALIZATION/MAJOR DIAGNOSTIC PROCEDURE PARATHYROIDECTOMY 04/29 REVIEW OF SYSTEMS REVIEWED BY: PROVIDER: MARCELO ESPARZA MD . CONSTITUTIONAL: ANY CHANGE IN YOUR MEDICAL CONDITION? YES, PT STATES SHE WAS RECENTLY DX WITH DNAII . CHILLS NO . FEVER NO . INFECTION: DO YOU HAVE NEW INFECTIONS? NO . DO YOU HAVE HISTORY OF MRSA? NO . MUSCULOSKELETAL: ANY NEW PATTERNS OF PAIN OR NUMBNESS? NO . GASTROENTEROLOGY: ANY NEW CHANGE IN BOWEL CONTROL? NO . GENITOURINARY: ANY NEW CHANGE IN BLADDER CONTROL? NO . IS THERE A CHANCE YOU COULD BE ? NO . HEMATOLOGY/LYMPH: DO YOU TAKE ANY BLOOD THINNERS? (FOR EXAMPLE- COUMADIN, PLAVIX, AGGRENOX, PLATEL, PRADAXA, OR XARELTO) NO . WHEN WAS YOUR LAST DOSE? DATE: TIME: . NEUROLOGY: HAVE YOU FALLEN IN THE PAST 6 MONTHS? NO . ANY NEW EXTREMITY NUMBNESS OR WEAKNESS? NO . CARDIOLOGY: DO YOU HAVE A PACEMAKER OR DEFIBRILLATOR? NO . RESPIRATORY: HAVE YOU BEEN SICK IN THE PAST WEEK? NO . FEVER NO . FLU LIKE SYMPTOMS? NO . COUGH NO . INTEGUMENTARY: DO YOU HAVE ANY RASHES OR OPEN SORES? NO . ALLERGIC/IMMUNO: ARE YOU ALLERGIC TO SHELLFISH OR IV DYE? NO . ANY NEW ALLERGIES? NO . PSYCHIATRIC: DO YOU HAVE THOUGHTS OF HURTING YOURSELF OR SOMEONE ELSE? NO . ARE YOU ABUSED, NEGLECTED, OR IN AN UNSAFE ENVIRONMENT? NO . ENDOCRINOLOGY: ARE YOU DIABETIC? NO . OTHER: DO YOU NEED ANY PRESCRIPTIONS? NO . IF YES, PLEASE LIST: ____ . ANY NEW PROBLEMS WITH YOUR MEDICATIONS? NO . WHEN DID YOU LAST EAT? ____ . WHEN DID YOU LAST DRINK? ____ . WHAT DID YOU LAST DRINK? ____ . NAME OF PERSON DRIVING YOU HOME? ____ . DO YOU HAVE ANY OTHER QUESTIONS OR CONCERNS NO, PT STATES SHE RECEIVED FLU VACCINE LAST WEEK . VITAL SIGNS WT 166 LBS, HT 64.75 IN, BMI 27.83 INDEX, BP 145/99 MM HG, HR 107 /MIN, RR 16 /MIN, TEMP 97.5 F, OXYGEN SAT % 98%, NA INITIALS AW 1455, REVIEWED BY: LS. EXAMINATION : PATIENT IS ALERT O X 3 AND COOPERATIVE. THERE IS TENDERNESS NEAR THE RT SACROILIAC JOINT. LUMBAR MRI DONE ON 08/15/2015 SHOWS A DIFFUSE DISC BULGE AT L2-3, L3-4, L4-5, AND L5-S1. THERE IS MINIMAL COMPRESSION OF THE THECAL SAC. THERE IS HYPERTROPHY OF THE POSTERIOR ARTICULATING FACETS. ASSESSMENTS INTERVERTEBRAL DISC DISORDER WITH RADICULOPATHY OF LUMBAR REGION - M51.16 (PRIMARY) INTERVERTEBRAL DISC DISORDER WITH RADICULOPATHY OF LUMBOSACRAL REGION - M51.17 TREATMENT INTERVERTEBRAL DISC DISORDER WITH RADICULOPATHY OF LUMBAR REGION NOTES: WE DISCUSSED SEVERAL ISSUES WITH MRS. ROJAS'S PAIN MANAGEMENT CASE. AT THIS TIME THE PATIENT WILL CONTINUE WITH THE SAME MEDICATION REGIME BEFORE. AT THIS TIME I WOULD LIKE THE PATIENT TO RECEIVE AN INTERFERENTIAL TENNS UNIT TO SEE IF IT WILL AID IN PAIN RELIEF. ALSO I WOULD LIKE THE PATIENT TO RECEIVE IONTOPHORESIS FOR PAIN MANAGEMENT. PATIENT WILL FOLLOW UP IN 3 MONTHS TO DISCUSS IF THESE AIDED IN PAIN RELIEF. INSTRUCTIONS WERE GIVEN, QUESTIONS WERE ANSWERED, PATIENT REPORTS UNDERSTANDING AND AGREES WITH THE PLAN. I, DAQUAN BRAY, DOCUMENTED THE ABOVE INFORMATION ACTING A SCRIBE FOR DR. ESPARZA. I HAVE REVIEWED THE ABOVE DOCUMENT, WRITTEN BY DAQUAN MERAZ AND I VERIFY THAT IT IS ACCURATE. INSTRUCTIONS WERE GIVEN, QUESTIONS WERE ANSWERED, PATIENT REPORTS UNDERSTANDING AND AGREES WITH THE PLAN. I, DAQUAN BRAY, DOCUMENTED THE ABOVE INFORMATION ACTING A SCRIBE FOR DR. ESPARZA. I HAVE REVIEWED THE ABOVE DOCUMENT, WRITTEN BY DAQUAN MERAZ AND I VERIFY THAT IT IS ACCURATE. PROCEDURE CODES FA211 ESTABILISHED PATIENT [facility] FACILITY CHARGE G8451 DOC MEDS VERIFIED W/PT OR RE G9601 PAIN ASSESS POS TOOL F/U PLAN DOC DISPOSITION & COMMUNICATION FOLLOW UP 3 WEEKS ELECTRONICALLY SIGNED BY MARCELO ESPARZA MD ON 07/05/2017 AT 09:08 PM EST DISCLAIMER : THIS IS A VISIT SUMMARY EXTRACTED FROM THE [employer] CHART. IT IS NOT A COPY OF THE [employer] PROGRESS NOTE. LEOND
== END ==
LOC: M PAIN 15:00
PROVIDERS: ATTEND Anesthesiology
DX: M51.16 Intervertebral disc disorders with radiculopathy, lumbar region (principal); M51.17 Intervertebral disc disorders with radiculopathy, lumbosacral region; G89.29 Other chronic pain; I10 Essential (primary) hypertension; E78.5 Hyperlipidemia, unspecified; Z79.82 Long term (current) use of aspirin; Z79.899 Other long term (current) drug therapy; Z88.0 Allergy status to penicillin; Z88.8 Allergy status to other drugs, medicaments and biological substances; Z88.2 Allergy status to sulfonamides; J30.2 Other seasonal allergic rhinitis; Z87.891 Personal history of nicotine dependence

== ENCOUNTER → 2017-09-28 | Outpatient (CLI) | payer MEDICARE, BC | LOC: M SMT 12:49 | DX: R93.8 Abnormal findings on diagnostic imaging of other specified body structures (principal) | CPT/HCPCS: 76830 ==

== ENCOUNTER 2017-10-10 17:57 | Emergency (ER) | payer MEDICARE, BC ==
[2017-10-10 18:33] LABS: KETONE, URINE AUTO RFX NEGATIVE (NEGATIVE); MUCUS, URINE RFX SMALL (NEGATIVE); NITRITE, URINE AUTO RFX NEGATIVE (NEGATIVE); RBC, URINE AUTO RFX 4 /HPF (0-3); SPECIFIC GRAVITY UR AUTO RFX 1.002 (1.002-1.035); SQUAM EPITHELIAL CELL UR AURFX 0 /HPF (0-6)
[2017-10-10 18:44] LABS: LEUKOCYTE ESTERASE UR AUTO RFX 3+ (NEGATIVE); WBC, URINE AUTO RFX 51 /HPF (0-3)
[2017-10-10] MEDS ORDERED: PHENAZOPYRIDINE 100 MG TAB PO ×2 (20:15)
[2017-10-10] MEDS ORDERED: NITROFURANTOIN (MACROBID) 100 MG CAP PO ×2 (20:15)
== END 2017-10-10 20:54 | disposition home or self-care (01) ==
LOC: M ED 17:57
DX: N39.0 Urinary tract infection, site not specified (principal); M85.9 Disorder of bone density and structure, unspecified; Z79.82 Long term (current) use of aspirin; Z79.899 Other long term (current) drug therapy; Z88.0 Allergy status to penicillin; Z88.2 Allergy status to sulfonamides; Z88.8 Allergy status to other drugs, medicaments and biological substances; J30.1 Allergic rhinitis due to pollen
CPT/HCPCS: 81001

== ENCOUNTER → 2017-12-20 | Outpatient (REF) | payer MEDICARE, BC ==
[2017-12-20 19:01] LABS: ALBUMIN 3.6 GM/DL (3.2-5.2); ALBUMIN/GLOBULIN RATIO 1.33 (1.00-1.93); ALKALINE PHOSPHATASE 85 U/L (45-117); ALT/SGPT 24 U/L (12-78); ANION GAP 7 MEQ/L (8-16); AST/SGOT 18 U/L (7-37); BILIRUBIN,TOTAL 0.5 MG/DL (0.2-1.0); BLOOD UREA NITROGEN 16 MG/DL (7-18); CALCIUM LEVEL 8.8 MG/DL (8.8-10.2); CARBON DIOXIDE LEVEL 31 MEQ/L (21-32); CHLORIDE LEVEL 106 MEQ/L (98-107); CHOLESTEROL LEVEL 193 MG/DL (<200); CREATININE FOR GFR 0.86 MG/DL (0.55-1.30); GLOMERULAR FILTRATION RATE > 60.0 (>39); GLUCOSE, FASTING 88 MG/DL (70-100); HDL CHOLESTEROL 67 MG/DL (>40); LDL CHOLESTEROL 109.6 MG/DL (<100); NON-HDL-C 126 MG/DL; POTASSIUM SERUM 3.8 MEQ/L (3.5-5.1); SODIUM LEVEL 144 MEQ/L (136-145); TOTAL PROTEIN 6.3 GM/DL (6.4-8.2); TRIGLYCERIDES LEVEL 82 MG/DL (<150)
== END ==
LOC: M SFHCCAPE 08:12
DX: E78.2 Mixed hyperlipidemia (principal)
CPT/HCPCS: 80053

== ENCOUNTER → 2018-01-09 | Outpatient (REF) | payer MEDICARE, BC ==
[2018-01-09 17:25] LABS: POTASSIUM SERUM 4.1 MEQ/L (3.5-5.1)
== END ==
LOC: M LABDRWCV 16:20
DX: I10 Essential (primary) hypertension (principal)
CPT/HCPCS: 84132

== ENCOUNTER 2018-01-11 07:21 | Day surgery (SDC) | payer MEDICARE, BC ==
[2018-01-11] MEDS: NS 1,000 ML IV (07:30)
[2018-01-11] MEDS ORDERED: PROPOFOL 200 MG/20 ML VIAL As Ordered (08:34)
== END 2018-01-11 09:22 | disposition home or self-care (01) ==
LOC: M OPP 07:21
DX: Z12.11 Encounter for screening for malignant neoplasm of colon (principal); Z86.010 Personal history of colon polyps; D12.2 Benign neoplasm of ascending colon; K64.0 First degree hemorrhoids; K57.30 Diverticulosis of large intestine without perforation or abscess without bleeding; I10 Essential (primary) hypertension; E78.5 Hyperlipidemia, unspecified; K21.9 Gastro-esophageal reflux disease without esophagitis; Z86.79 Personal history of other diseases of the circulatory system; K59.00 Constipation, unspecified; M54.9 Dorsalgia, unspecified; M85.80 Other specified disorders of bone density and structure, unspecified site; Z86.018 Personal history of other benign neoplasm; Z78.0 Asymptomatic menopausal state; R06.83 Snoring; G47.30 Sleep apnea, unspecified; Z88.8 Allergy status to other drugs, medicaments and biological substances; Z88.0 Allergy status to penicillin; Z88.2 Allergy status to sulfonamides; Z79.82 Long term (current) use of aspirin; Z79.899 Other long term (current) drug therapy; Z87.891 Personal history of nicotine dependence
CPT/HCPCS: 45380

== ENCOUNTER → 2018-01-20 | Outpatient (CLI) | payer MEDICARE, BC | LOC: M WHC 14:26 | DX: Z12.31 Encounter for screening mammogram for malignant neoplasm of breast (principal); Z13.820 Encounter for screening for osteoporosis; Z78.0 Asymptomatic menopausal state | CPT/HCPCS: 77067 ==

== ENCOUNTER → 2018-06-13 | Outpatient (REF) | payer MEDICARE, BC ==
[2018-06-13 18:16] LABS: ALBUMIN 3.7 GM/DL (3.2-5.2); ALBUMIN/GLOBULIN RATIO 1.48 (1.00-1.93); ALKALINE PHOSPHATASE 72 U/L (45-117); ALT/SGPT 28 U/L (12-78); ANION GAP 6 MEQ/L (8-16); AST/SGOT 22 U/L (7-37); BILIRUBIN,TOTAL 0.5 MG/DL (0.2-1.0); BLOOD UREA NITROGEN 18 MG/DL (7-18); CALCIUM LEVEL 9.6 MG/DL (8.8-10.2); CARBON DIOXIDE LEVEL 33 MEQ/L (21-32); CHLORIDE LEVEL 103 MEQ/L (98-107); CREATININE FOR GFR 0.81 MG/DL (0.55-1.30); FREE T4 0.99 NG/DL (0.76-1.46); GLOMERULAR FILTRATION RATE > 60.0 (>39); GLUCOSE, FASTING 88 MG/DL (70-100); POTASSIUM SERUM 3.8 MEQ/L (3.5-5.1); SODIUM LEVEL 142 MEQ/L (136-145); TOTAL PROTEIN 6.2 GM/DL (6.4-8.2)
[2018-06-13 18:31] LABS: MALB URINE SIEMENS 20.6 MG/L
== END ==
LOC: M SFHCCAPE 08:43
DX: K59.00 Constipation, unspecified (principal); I10 Essential (primary) hypertension
CPT/HCPCS: 84443

== ENCOUNTER → 2018-11-28 | Outpatient (REF) | payer MEDICARE, BC ==
[~2018-11-28] MED LIST changes: -ASPI1TAB PO; +ASPI81TA26 PO; +CHLO125TA PO; +COLA100C5 PO; +CRAN400C PO; +FLAX10002 PO; +KLOR1CAP2 PO; +MACR100C43 PO; +PYRI1TAB5 PO
== END ==
LOC: M SFHCCAPE 10:20
PROVIDERS: ATTEND Physician Assistant
DX: B02.9 Zoster without complications (principal)
CPT/HCPCS: 87798; G0463

== ENCOUNTER → 2018-11-30 | Outpatient (REF) | payer MEDICARE, BC ==
[2018-11-30 17:01] LABS: ALBUMIN 3.8 GM/DL (3.2-5.2); ALT/SGPT 20 U/L (12-78); BILIRUBIN,TOTAL 0.7 MG/DL (0.2-1.0); BLOOD UREA NITROGEN 19 MG/DL (7-18); CALCIUM LEVEL 9.5 MG/DL (8.8-10.2); CARBON DIOXIDE LEVEL 31 MEQ/L (21-32); CHLORIDE LEVEL 103 MEQ/L (98-107); CHOLESTEROL LEVEL 224 MG/DL (<200); CREATININE FOR GFR 0.84 MG/DL (0.55-1.30); GLOMERULAR FILTRATION RATE > 60.0 (>39); GLUCOSE, FASTING 97 MG/DL (70-100); HDL CHOLESTEROL 80 MG/DL (>40); LDL CHOLESTEROL 123 MG/DL (<100); NON-HDL-C 144 MG/DL; POTASSIUM SERUM 3.7 MEQ/L (3.5-5.1); SODIUM LEVEL 141 MEQ/L (136-145); TOTAL PROTEIN 6.4 GM/DL (6.4-8.2); TRIGLYCERIDES LEVEL 104 MG/DL (<150)
== END ==
LOC: M SFHCCAPE 07:39
PROVIDERS: ATTEND Nurse Practitioner Family
DX: I10 Essential (primary) hypertension (principal); E78.2 Mixed hyperlipidemia

== ENCOUNTER → 2019-03-02 | Outpatient (CLI) | payer MEDICARE, BC ==
[~2019-03-02] MED LIST changes: -OMEP40CA2 PO; +OMEP40CA97 PO
--- NOTE | 2019-03-02 12:19 | REPMRS ---
Patient History The patient states she had a clinical breast exam in 12/2018. Patient is postmenopausal, has history of other cancer at age 70, and is nulliparous. Family history of breast cancer in paternal aunt. No Hormone Replacement Therapy 3D TOMOSYNTHESIS WAS PERFORMED. [facility] for breast cancer is 8.2%. Digital Woman Screen Mammo: March 02, 2019 - Exam #: [id number] Bilateral CC and MLO view(s) were taken. Technologist: Albertina Herbert, Technologist Prior study comparison: January 20, 2018, bilateral digital woman screen mammo performed at [facility]. September 27, 2016, digital woman screen mammo performed at [facility]. FINDINGS: The breast tissue is heterogeneously dense. This may lower the sensitivity of mammography. There has been no change in the appearance of the mammogram from the prior studies. There is a moderate amount of residual fibroglandular tissue which is fairly symmetric. There is no interval development of dominant mass, areas of architectural distortion, or clustered microcalcification typical of malignancy. Assessment: BI-RADS/ACR category 1 mammogram. Negative Mammogram. Recommendation Routine screening mammogram in 1 year (for women over age 40). This mammogram was interpreted with the aid of an FDA-approved computer-aided dectection system. Electronically Signed By: Ventura Chambers MD 03/02/19 [id number]
== END ==
LOC: M WHC 10:58
PROVIDERS: ATTEND Nurse Practitioner Family
DX: Z12.31 Encounter for screening mammogram for malignant neoplasm of breast (principal)

== ENCOUNTER → 2019-06-18 | Outpatient (REF) | payer MEDICARE, BC ==
[2019-06-18 16:42] LABS: ALBUMIN 3.6 GM/DL (3.2-5.2); ALT/SGPT 22 U/L (12-78); BILIRUBIN,TOTAL 0.6 MG/DL (0.2-1.0); BLOOD UREA NITROGEN 19 MG/DL (7-18); CALCIUM LEVEL 8.9 MG/DL (8.8-10.2); CARBON DIOXIDE LEVEL 33 MEQ/L (21-32); CHLORIDE LEVEL 104 MEQ/L (98-107); CREATININE FOR GFR 0.87 MG/DL (0.55-1.30); GLOMERULAR FILTRATION RATE > 60.0 (>39); GLUCOSE, FASTING 89 MG/DL (70-100); SODIUM LEVEL 142 MEQ/L (136-145); TOTAL PROTEIN 6.3 GM/DL (6.4-8.2)
== END ==
LOC: M SFHCCAPE 07:41
PROVIDERS: ATTEND Nurse Practitioner Family
DX: I10 Essential (primary) hypertension (principal)

== ENCOUNTER → 2019-11-16 | Outpatient (REF) | payer MEDICARE, BC ==
[2019-11-16 16:28] LABS: APPEARANCE, URINE CLEAR (CLEAR); BACTERIA, URINE AUTO NEGATIVE (NEGATIVE); BILIRUBIN, URINE AUTO NEGATIVE (NEGATIVE); BLOOD, URINE BLOOD NEGATIVE (NEGATIVE); COLOR, URINE STRAW (YELLOW); GLUCOSE, URINE (UA) AUTO NEGATIVE (NEGATIVE); KETONE, URINE AUTO NEGATIVE (NEGATIVE); LEUKOCYTE ESTERASE, URINE AUTO NEGATIVE (NEGATIVE); NITRITE, URINE AUTO NEGATIVE (NEGATIVE); PROTEIN, URINE AUTO NEGATIVE (NEGATIVE); RBC, URINE AUTO 0 /HPF (0-3); SPECIFIC GRAVITY URINE AUTO 1.003 (1.002-1.035); SQUAMOUS EPITHELIAL CELL UR AU 0 /HPF (0-6); UROBILINOGEN, URINE AUTO 0.2 mg/dL (0.0-2.0); WBC, URINE AUTO 0 /HPF (0-3)
== END ==
LOC: M PLALAB 09:17
PROVIDERS: ATTEND Obstetrics & Gynecology
DX: R30.0 Dysuria (principal)

== ENCOUNTER → 2019-11-22 | Outpatient (REF) | payer MEDICARE, BC ==
[2019-11-22 18:14] LABS: APPEARANCE, URINE CLEAR (CLEAR); BACTERIA, URINE AUTO NEGATIVE (NEGATIVE); BILIRUBIN, URINE AUTO NEGATIVE (NEGATIVE); BLOOD, URINE BLOOD NEGATIVE (NEGATIVE); COLOR, URINE STRAW (YELLOW); GLUCOSE, URINE (UA) AUTO NEGATIVE (NEGATIVE); KETONE, URINE AUTO NEGATIVE (NEGATIVE); LEUKOCYTE ESTERASE, URINE AUTO NEGATIVE (NEGATIVE); NITRITE, URINE AUTO NEGATIVE (NEGATIVE); PROTEIN, URINE AUTO NEGATIVE (NEGATIVE); RBC, URINE AUTO 1 /HPF (0-3); SPECIFIC GRAVITY URINE AUTO 1.005 (1.002-1.035); SQUAMOUS EPITHELIAL CELL UR AU 0 /HPF (0-6); UROBILINOGEN, URINE AUTO 0.2 mg/dL (0.0-2.0); WBC, URINE AUTO 1 /HPF (0-3)
== END ==
LOC: M SFHCPLAZ 15:24
PROVIDERS: ATTEND Nurse Practitioner Family
DX: R35.0 Frequency of micturition (principal)
CPT/HCPCS: 81001; 87086; G0463

== ENCOUNTER → 2020-03-13 | Outpatient (CLI) | payer MEDICARE, BC ==
--- NOTE | 2020-03-15 13:18 | REPMRS ---
Patient History The patient states she had a clinical breast exam in 02/2020. Family history of breast cancer in paternal aunt. No Hormone Replacement Therapy Digital Woman Screen Mammo: March 13, 2020 - Exam #: [id number] Bilateral CC and MLO view(s) were taken. Technologist: Madeline Hernandez, Technologist Prior study comparison: March 02, 2019, bilateral digital woman screen mammo performed at [facility]. January 20, 2018, bilateral digital woman screen mammo performed at [facility]. September 27, 2016, digital woman screen mammo performed at [facility]. FINDINGS: There are scattered fibroglandular densities. The Volpara volumetric breast density category is: B. There is a moderate amount of residual fibroglandular tissue which is fairly symmetric. There is no interval development of dominant mass, architectural distortion, or grouped microcalcification typical of malignancy. There has been no change in the appearance of the mammogram from the prior studies. 3-D tomosynthesis shows no additional findings. Assessment: BI-RADS/ACR category 1 mammogram. Negative Mammogram. Recommendation Routine screening mammogram of both breasts in 1 year (for women over age 40). This patient's Lifetime Breast Cancer RIsk is estimated at 7.8 %. This mammogram was interpreted with the aid of an FDA-approved computer-aided dectection system. Electronically Signed By: Joaquin Guo MD 03/15/20 0971
--- NOTE | 2020-03-21 08:36 | DEXA ---
AP SPINE L1 - L4 0.915 -2.3 -0.6 LT FEMUR TOTAL 0.804 -1.6 -0.1 LT NECK 0.780 -1.9 -0.1 RT FEMUR TOTAL 0.799 -1.7 -0.2 RT NECK 0.770 -1.9 -0.2 TOTAL BODY TOTAL OTHER COMMENTS: There is low bone density of the spine and hips. The density of the spine has increased 2.4% since the initial exam on 12/28/2002. The increased 2.6% since the most recent exam on 01/20/2018. The density of the left hip has increased 1.1% since the initial exam on 12/31/2004. The density of the left hip has decreased 0.2% since the most recent exam on 01/20/2018. The density of the right hip has increased 4.0% since the initial exam on 12/31/2004. The density of the right hip is 0.0% since the most recent exam on 01/20/2018. FOLLOW-UP: Recommendation for the next bone density exam: 2 years. ABRAHAM
== END ==
LOC: M WHC 10:22
PROVIDERS: ATTEND Nurse Practitioner Family
DX: Z01.419 Encounter for gynecological examination (general) (routine) without abnormal findings (principal); Z12.31 Encounter for screening mammogram for malignant neoplasm of breast; Z78.0 Asymptomatic menopausal state
CPT/HCPCS: 77063; 77067; 77080; G0101

== ENCOUNTER → 2020-05-28 | Outpatient (REF) | payer MEDICARE, BC ==
[2020-05-28 21:27] LABS: BLOOD UREA NITROGEN 18 MG/DL (7-18); CALCIUM LEVEL 10.1 MG/DL (8.8-10.2); CARBON DIOXIDE LEVEL 29 MEQ/L (21-32); CHLORIDE LEVEL 103 MEQ/L (98-107); CREATININE FOR GFR 0.79 MG/DL (0.55-1.30); GLOMERULAR FILTRATION RATE > 60.0 (>39); GLUCOSE, FASTING 89 MG/DL (70-100); POTASSIUM SERUM 3.5 MEQ/L (3.5-5.1); SODIUM LEVEL 140 MEQ/L (136-145)
== END ==
LOC: M SFHCPLAZ 15:09
PROVIDERS: ATTEND Family Medicine
DX: I10 Essential (primary) hypertension (principal)

== ENCOUNTER → 2020-09-29 | Outpatient (REF) | payer MEDICARE, BC ==
[2020-09-29 18:14] LABS: APPEARANCE, URINE CLEAR (CLEAR); BACTERIA, URINE AUTO NEGATIVE (NEGATIVE); BILIRUBIN, URINE AUTO NEGATIVE (NEGATIVE); BLOOD, URINE BLOOD 1+ (NEGATIVE); COLOR, URINE STRAW (YELLOW); GLUCOSE, URINE (UA) AUTO NEGATIVE (NEGATIVE); KETONE, URINE AUTO NEGATIVE (NEGATIVE); LEUKOCYTE ESTERASE, URINE AUTO 2+ (NEGATIVE); MUCUS, URINE SMALL (NEGATIVE); NITRITE, URINE AUTO NEGATIVE (NEGATIVE); PROTEIN, URINE AUTO NEGATIVE (NEGATIVE); RBC, URINE AUTO 0 /HPF (0-3); SPECIFIC GRAVITY URINE AUTO 1.004 (1.002-1.035); SQUAMOUS EPITHELIAL CELL UR AU 0 /HPF (0-6); UROBILINOGEN, URINE AUTO 0.2 mg/dL (0.0-2.0)
[2020-09-29 18:18] LABS: WBC, URINE AUTO 87 /HPF (0-3)
== END ==
LOC: M SMT 17:06
PROVIDERS: ATTEND Nurse Practitioner Women's Health
DX: R30.0 Dysuria (principal)

== ENCOUNTER → 2020-11-24 | Outpatient (REF) | payer MEDICARE, BC ==
[2020-11-24 16:33] LABS: ALBUMIN 3.7 GM/DL (3.2-5.2); ALT/SGPT 23 U/L (12-78); BILIRUBIN,TOTAL 0.8 MG/DL (0.2-1.0); BLOOD UREA NITROGEN 19 MG/DL (7-18); CALCIUM LEVEL 9.5 MG/DL (8.8-10.2); CARBON DIOXIDE LEVEL 31 MEQ/L (21-32); CHLORIDE LEVEL 104 MEQ/L (98-107); CHOLESTEROL LEVEL 220 MG/DL (<200); CHOLESTEROL RISK RATIO 2.444 (<5); GLOMERULAR FILTRATION RATE > 60.0 (>39); GLUCOSE, FASTING 92 MG/DL (70-100); HDL CHOLESTEROL 90 MG/DL (>40); LDL CHOLESTEROL 112 MG/DL (<100); NON-HDL-C 130 MG/DL; POTASSIUM SERUM 4.2 MEQ/L (3.5-5.1); SODIUM LEVEL 141 MEQ/L (136-145); TOTAL PROTEIN 6.3 GM/DL (6.4-8.2); TRIGLYCERIDES LEVEL 91 MG/DL (<150)
[2020-11-24 16:34] LABS: MALB URINE SIEMENS 45.4 MG/L; MAU/CREAT RATIO 38.1 MCG/MG (0.0-30.0)
== END ==
LOC: M SFHCCAPE 08:49
PROVIDERS: ATTEND Nurse Practitioner Family
DX: E78.2 Mixed hyperlipidemia (principal); I10 Essential (primary) hypertension

== ENCOUNTER → 2021-02-09 | Outpatient (REF) | payer MEDICARE, BC ==
[~2021-02-09] MED LIST changes: +OMEP40CA4 PO; -OMEP40CA97 PO
[2021-02-09 17:22] LABS: BLOOD UREA NITROGEN 21 MG/DL (7-18); CARBON DIOXIDE LEVEL 31 MEQ/L (21-32); CHLORIDE LEVEL 102 MEQ/L (98-107); CREATININE FOR GFR 0.81 MG/DL (0.55-1.30); GLOMERULAR FILTRATION RATE > 60.0 (>39); GLUCOSE, FASTING 80 MG/DL (70-100); POTASSIUM SERUM 3.8 MEQ/L (3.5-5.1); SODIUM LEVEL 139 MEQ/L (136-145)
[2021-02-09 17:37] LABS: MAU/CREAT RATIO 9.4 MCG/MG (0.0-30.0)
== END ==
LOC: M SFHCCAPE 09:50
PROVIDERS: ATTEND Nurse Practitioner Family
DX: R80.9 Proteinuria, unspecified (principal); I10 Essential (primary) hypertension

== ENCOUNTER → 2021-04-07 | Outpatient (CLI) | payer MEDICARE, BC ==
--- NOTE | 2021-04-07 16:26 | REPMRS ---
Patient History The patient states she had a clinical breast exam in 2020. Family history of breast cancer in paternal aunt. No Hormone Replacement Therapy No breast complaints today Patient signed the MRS sheet 1st covid vaccine 08/26/20-right arm-Moderna 2nd covid vaccine 09/30/20-left arm Priors on PACS Patient Identification Verified Digital Woman Screen Mammo: April 07, 2021 - Exam #: [id number] Bilateral CC and MLO view(s) were taken. Technologist: Tawanna Bryant, Technologist Prior study comparison: March 13, 2020, bilateral digital woman screen mammo performed at [facility]. March 02, 2019, bilateral digital woman screen mammo performed at [facility]. FINDINGS: There are scattered fibroglandular densities. Screening. Digital screening (2D) mammography was performed bilaterally in the CC and MLO projections. Additionally, breast tomosynthesis (3D mammography) was performed bilaterally in the CC and MLO projections. Todays exam was compared to the prior exam/exams. By history, the patient has no complaints of a palpable breast abnormality or other significant breast complaints. The breasts are unchanged in size and shape. There are no faustino-soft tissue densities or spiculated masses. There is no internal architectural distortion. There are no suspicious faustino-calcific clusters. Skin thickening or nipple retraction is not present. IMPRESSION: BI-RADS Category 2- Benign Findings. There is no evidence of malignant alteration of the breasts. Followup examination recommended in one year. The Volpara volumetric breast density category is B, there are scattered areas of fibroglandular densities. This mammogram was read with the assistance of [facility],an FDA approved computer aided detection system for mammography. The lifetime Tyrer-Cuzick score is 1.5 % Negative x-ray reports should not delay surgical consultation if a dominant or clinically suspicious mass is present. Not all breast cancers can be identified by mammography. Therefore, we recommend that you continue to perform regular breast self-examination and physical examination and then promptly contact your physician of any concerns or changes. Adenosis and dense breasts may obscure an underlying neoplasm. Assessment: BI-RADS/ACR category 2 mammogram. Benign Findings. Recommendation Routine screening mammogram of both breasts in 1 year. Electronically Signed By: Charles Frey 04/07/21 2235
== END ==
LOC: M WHC 15:34
PROVIDERS: ATTEND Nurse Practitioner Women's Health
DX: Z12.31 Encounter for screening mammogram for malignant neoplasm of breast (principal); Z80.3 Family history of malignant neoplasm of breast; Z78.0 Asymptomatic menopausal state
CPT/HCPCS: 77063; 77067; G0463

== ENCOUNTER → 2021-04-24 | Outpatient (REF) | payer MEDICARE, BC ==
[2021-04-24 18:04] LABS: APPEARANCE, URINE HAZY (CLEAR); BACTERIA, URINE AUTO 1+ (NEGATIVE); BILIRUBIN, URINE AUTO NEGATIVE (NEGATIVE); BLOOD, URINE BLOOD 1+ (NEGATIVE); COLOR, URINE YELLOW (YELLOW); GLUCOSE, URINE (UA) AUTO NEGATIVE (NEGATIVE); KETONE, URINE AUTO NEGATIVE (NEGATIVE); LEUKOCYTE ESTERASE, URINE AUTO 3+ (NEGATIVE); NITRITE, URINE AUTO NEGATIVE (NEGATIVE); PROTEIN, URINE AUTO NEGATIVE (NEGATIVE); RBC, URINE AUTO 0 /HPF (0-3); SPECIFIC GRAVITY URINE AUTO 1.005 (1.002-1.035); SQUAMOUS EPITHELIAL CELL UR AU 0 /HPF (0-6); UROBILINOGEN, URINE AUTO 0.2 mg/dL (0.0-2.0); WBC, URINE AUTO 77 /HPF (0-3)
== END ==
LOC: M SMT 16:35
PROVIDERS: ATTEND Nurse Practitioner Women's Health
DX: R30.0 Dysuria (principal)

== ENCOUNTER → 2021-05-15 | Outpatient (CLI) | payer MEDICARE, BC ==
--- NOTE | 2021-05-15 12:49 | REP ---
INDICATION: DORSALGIA, UNSPECIFIED. COMPARISON: 06/07/2005 FINDINGS: The superior mediastinal structures are midline. The cardiac silhouette is unremarkable in size, shape, and position. The diaphragmatic surfaces of the lungs are regular, and the costophrenic angles are clear. The pulmonary lee are clear. The imaged osseous structures are intact. IMPRESSION: There is no acute cardiopulmonary disease. <Electronically signed by Charles Frey > 05/15/21 [id number]
== END ==
LOC: M PLAIMG 11:46
PROVIDERS: ATTEND Nurse Practitioner Family
DX: M54.9 Dorsalgia, unspecified (principal)

== ENCOUNTER 2021-05-18 13:29 | Emergency (ER) | payer MEDICARE, BC ==
--- OUTSIDE RECORDS SUMMARY | 2021-05-18 13:34 | CCD ---
Author Author [facility] Organization [facility] Address Unknown Phone Unavailable Care Team Providers Care Scaleman Name Role Phone Sylvie Snyder Unavailable PROBLEMS Type Condition ICD9-CM Code [id number] Code Onset Dates Condition S tatus W/U Status Risk SNOMED Code Notes Problem Age-related bone loss M85.80 Active confirmed 81600472 Problem Mixed hyperlipidemia E78.2 Active confirmed 137236769 Problem Allergic rhinitis, cause unspecified J30.9 Act pete confirmed 89212875 Problem 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 Active confirmed 023418051 Problem Reflux esophagitis K21.0 Active confirmed 2 94173217 Problem Other chronic pain G89.29 Active confirmed 8 8312981 Problem Degenerative disc disease, lumbar M51.36 Active confirmed 60285437 Problem Intervertebral disc disorder with radiculopathy of lumbar region M51.16 Active confirmed 04969696 Problem Female cystocele N81.10 Active confirmed 252 485269 Problem Sacroiliac pain M53.3 Active confirmed 2023 55557 Problem Piriformis syndrome of right side G57.01 Active confirmed 917831072094807 Problem Essential hypertension I10 Active confirmed 57446660 Problem Lumbar spondylosis M47.816 Active confirmed 021273259 Problem Overactive bladder N32.81 Active confirmed 2 87334478 Problem Stress incontinence N39.3 Active confirmed 31466840 Problem Pelvic pressure in female N94.89 Active confirmed 824868434 Problem Spinal enthesopathy, lumbar region M46.06 Activ e confirmed 97254545 Problem Intervertebral disc disorder with radiculopathy of lumbosacral region M51.17 Active confirmed 24163994 Problem Environmental allergies Z91.09 Active confirmed 742783526 Problem Constipation, unspecified constipation type K59.00 Active confirmed 91176529 Problem History of basal cell carcinoma Z85.828 Active confirmed 791762701 Problem Myalgia M79.1 Active confirmed 00559838 Problem UTI (urinary tract infection) N39.0 Active confirm ed 61171520 Problem Myofascial pain syndrome M79.1 Active confirmed 66961955 Problem Sacroiliitis, not elsewhere classified M46.1 A ctive confirmed 923147452 Problem Endometrial hyperplasia N85.00 Active confirmed 616300374 Problem Bladder spasms N32.89 Active confirmed 26556 7006 Problem Microalbuminuria R80.9 Active confirmed 312 066648 Problem Vaginal atrophy N95.2 Active confirmed 2971 00642 ALLERGIES Allergen (clinical drug ingredient) Drug/Non Drug Allergy do cumented on EMR Reaction Allergy Type Onset Date Status Environmental sneezing, watery eyes, sinus congestion Non Drug Allergy Active Elavil ineffective Drug Allergy Active penicillin V Penicillin V Potassium(ND Code:[address]-16) Hives Drug Allergy Active duloxetine Cymbalta(NDC Code:[address]-10) Nausea , RHODES, Dizzines s Drug Allergy Active risedronate Actonel(NDC Code:[address]-02) back pain Drug Allergy Active Sulfa (for allergy use only) Hives Non Drug Allergy Active Flexeril Hives Drug Allergy Active ENCOUNTERS from 1945 to 2021-04-27 Encounter Location Date Provider Diagnosis [facility] [address] [phone] [place] [address] Apr, 2021 Sylvie Snyder UTI (urinary tract infection) N39.0 IMMUNIZATIONS Vaccine Route Administration Date Status COVID-19 dose #1 given elsewhere Unspecified Unknown December 04, 2020 Administered COVID-19 dose #2 given elsewhere Unspecified Unknown December 04, 2020 Administered Zoster 50mcg/0.5mL Shingrix IM Intramuscular Jun 01, 2018 Adm inistered Influenza 18 yrs & older Flublok Unknown May 28, 2020 Administered Influenza Pharmacy Given Unknown May 09, 2019 Adminis tered Influenza 6mo & up Fluzone IM Intramuscular May 04, 2012 Admi nistered Influenza (High Dose 65 & up) IM Intramuscular Jun 06, 2017 A dministered Influenza (High Dose 65 & up) IM Intramuscular May 10, 2016 A dministered Influenza (High Dose 65 & up) IM Intramuscular May 01, 2015 A dministered Pneumococcal Adult 0.5mL Pneumovax 23 IM Intramuscular Jun 18, 013 Administered TDAP IM Intramuscular November 25, 2015 Administered Pneumococcal 0.5mL Prevnar 13 IM Intramuscular November 25, 2015 A dministered Influenza 6mo & up Fluzone IM Intramuscular May 08, 2014 Admi nistered Influenza 6mo & up Fluzone IM Intramuscular Jun 06, 2013 Admi nistered SOCIAL HISTORY Tobacco Use: Social History Observation Description Date Details (start date - stop date) Never Smoker Sex Assigned At : Social History Observation Description Sex Assigned At Unknown Education: Question Answer Notes Level of Education: College Audit Question Answer Notes Total Score: 1 Interpretation: Alcohol Education Language: Question Answer Notes Languages spoken: [place] Holiness: Question Answer Notes Holiness 33 None Sexual Hx: Question Answer Notes Had sex in the last 12 months (vaginal, oral, or anal)? No Have you ever had an STD? No Drug and Alcohol Question Answer Notes Total Score: 0 Interpretation: No problems reported Alcohol Screening: Question Answer Notes Did you have a drink containing alcohol in the past year? Ye s Points 1 Interpretation Negative How often did you have six or more drinks on one occas ion in the past year? Never (0 points) How many drinks did you have on a typica l day when you were drinking in the past year? 1 or 2 (0 points) How often did you have a drink containing alcohol in t he past year? Monthly or less (1 point) Tobacco Use: Question Answer Notes Are you a: never smoker REASON FOR REFERRAL No Information VITAL SIGNS No information MEDICATIONS Medication SIG (Take, Route, Frequency, Duration) Notes Start Da te End Date Status EpiPen 2-Reyes 0.3 MG/0.3ML (1:1000) injection Intramusc ular As needed for 90 days Active Vitamin D 400 UNIT 1 tablet Orally every other day Not-Taking Atorvastatin Calcium 20 mg TAKE 1 TABLET DAILY Active Colace 100 MG 1 capsule Orally Daily Sep, Active Macrobid 100 MG 1 cap Orally bid for 10 day(s) Apr, 1 Active Calcium 600 + D 600-400 MG-UNIT 1 tablet Orally daily Active Cetirizine HCl 10 MG 1 tablet Orally Once a day for 90 day(s) May, Not-Taking Omeprazole 20 mg 1 capsule 30 minutes before morning meal Orally On a day Active Meloxicam 7.5 mg take 1-2 tablets daily as ne eded for pain orally/ MDD=2 Daily for 90 day(s) taking 6 days a week Active Chlorthalidone 25 MG 1 tablet in the morning with food Orally 3 days a week (M,W,F) Active Fiber - as directed Orally Active Ciprofloxacin HCl 500 MG 1 tablet Orally every 12 hrs for 7 day( s) Apr, Active PROCEDURES No Information RESULTS No Results REASON FOR VISIT No Information MEDICAL (GENERAL) HISTORY Type Description Date Medical History bilat plantar fasciatis Medical History osteopenia Medical History envir. allergies (had anaphy laxis with ragweed skin testing), carries epi-pen Medical History hemorrhoids/diverticulosis Medical History hyperlipidemia Medical History hx. of colon polyp Medical History chronic back pain Medical History DDD Medical History SIJ Disease Medical History Hypertension Medical History DANII Medical History 4.6 cm stable benign hemangioma on CT 20 17 Medical History SKs - Follows with Derm in [place], Dr Turpin Surgical History x2 D & C 1997,2000 Surgical History vaginal cyst 04/28 Surgical History ganglion cyst R hand 07/25 Surgical History parathyroidectomy adenoma - Dr Wesley 6 Surgical History colonoscopy, has had 3 - andrew or polyps, Abelino - diverticulosis, (no polyps in ) 11/29 Surgical History tonsillectomy age 7 Surgical History 2 basal cell cancer surgeries on face 20 16 Surgical History Endometrial biopsy and D&C -Dr. Bray 03/26 017 and 10/2017 Surgical History colonoscopy with polyp resection, tubula r adenoma - Abelino 01/09 Hospitalization History Parathyroidectomy 04/29 Goals Section No Information Health Concerns No Information MEDICAL EQUIPMENT No Information MENTAL STATUS No Information FUNCTIONAL STATUS No Information ASSESSMENTS Encounter Date Diagnosis Assessment Notes Treatment Notes Treatm ent Clinical Notes Apr, UTI (urinary tract infection) (ICD-10 - N39.0) PLAN OF TREATMENT Medication Medication Name Sig Start Date Stop Date Ciprofloxacin HCl 500 MG 1 tablet Orally every 12 hrs for 7 day( s) Apr, Macrobid 100 MG 1 cap Orally bid for 10 day(s) Apr, Next Appt Details Provider Name:Meghan Canas, 2021-06-04 10:3 0:00 AM, [address] [facility], , [place], [address], Provider Name:Yenifer Washington, 02:15:00 PM, [address] [facility], , [place], [address], Insurance Providers Payer Name Payer Address Payer Phone Insured Name Patient Relati onship to Insured Coverage Start Date Coverage End Date MEDICARE Part A and B [address] [place] [phone] [phone] EDITH CHAPA [facility] BCBS OF [facility] [phone] [facility] [address] LIZETTE CHAPA
--- OUTSIDE RECORDS SUMMARY | 2021-05-18 13:34 | CCD ---
Author Author [facility] Organization [facility] Address Unknown Phone Unavailable Care Team Providers Care Aircraft Designer Name Role Phone Sylvie Sndyer Unavailable PROBLEMS Type Condition ICD9-CM Code [id number] Code Onset Dates Condition S tatus W/U Status Risk SNOMED Code Notes Problem Allergic rhinitis, cause unspecified J30.9 Act pete confirmed 30917514 Problem Age-related bone loss M85.80 Active confirmed 84980630 Problem Reflux esophagitis K21.0 Active confirmed 2 37893788 Problem Mixed hyperlipidemia E78.2 Active confirmed 088350987 Problem Degenerative disc disease, lumbar M51.36 Active confirmed 51015321 Problem 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 Active confirmed 798743538 Problem Female cystocele N81.10 Active confirmed 252 868160 Problem Pelvic pressure in female N94.89 Active confirmed 554951393 Problem Piriformis syndrome of right side G57.01 Active confirmed 914235251879528 Problem Sacroiliitis, not elsewhere classified M46.1 A ctive confirmed 413176907 Problem Lumbar spondylosis M47.816 Active confirmed 947807071 Problem Sacroiliac pain M53.3 Active confirmed 202 96488 Problem Stress incontinence N39.3 Active confirmed 19606420 Problem Essential hypertension I10 Active confirmed 41914946 Problem Spinal enthesopathy, lumbar region M46.06 Activ e confirmed 00399783 Problem Overactive bladder N32.81 Active confirmed 2 70609081 Problem Intervertebral disc disorder with radiculopathy of lumbar region M51.16 Active confirmed 36317662 Problem Intervertebral disc disorder with radiculopathy of lumbosacral region M51.17 Active confirmed 60795427 Problem Environmental allergies Z91.09 Active confirmed 856375601 Problem Vaginal atrophy N95.2 Active confirmed 2971 15682 Problem Myofascial pain syndrome M79.1 Active confirmed 84695749 Problem History of basal cell carcinoma Z85.828 Active confirmed 329493847 Problem Other chronic pain G89.29 Active confirmed 8 8234123 Problem Myalgia M79.1 Active confirmed 37512360 Problem Constipation, unspecified constipation type K59.00 Active confirmed 65259707 Problem Endometrial hyperplasia N85.00 Active confirmed 284284500 Problem Bladder spasms N32.89 Active confirmed 83086 7006 Problem Microalbuminuria R80.9 Active confirmed 312 571511 ALLERGIES Allergen (clinical drug ingredient) Drug/Non Drug Allergy do cumented on EMR Reaction Allergy Type Onset Date Status Environmental sneezing, watery eyes, sinus congestion Non Drug Allergy Active Elavil ineffective Drug Allergy Active penicillin V Penicillin V Potassium([facility] Code:[address]-26) Hives Drug Allergy Active duloxetine Cymbalta([facility] Code:[address]-99) Nausea , RHODES, Dizzines s Drug Allergy Active risedronate Actonel(ND Code:[address]-63) back pain Drug Allergy Active Sulfa (for allergy use only) Hives Non Drug Allergy Active Flexeril Hives Drug Allergy Active ENCOUNTERS from 1945 to 2021-04-24 Encounter Location Date Provider Diagnosis [facility] [address] [phone] [place] [address] Apr, Sylvie Recore Dysuria R30.0 IMMUNIZATIONS Vaccine Route Administration Date Status COVID-19 [...] Education Language: Question Answer Notes Languages spoken: Citizen Of [place] Islam: Question Answer Notes Islam 33 None Sexual Hx: Question Answer Notes [...] ular As needed for 90 days Active Colace 100 MG 1 capsule Orally Daily Sep, Active Meloxicam 7.5 mg take 1-2 tablets daily as ne eded for pain orally/ MDD=2 Daily for 90 day(s) taking 6 days a week Active Atorvastatin Calcium 20 mg TAKE 1 TABLET DAILY Active Macrobid 100 MG 1 cap Orally bid for 10 day(s) Apr, 1 Active Calcium 600 + D 600-400 MG-UNIT 1 tablet Orally daily Active Vitamin D 400 UNIT 1 tablet Orally every other day Not-Taking Omeprazole 20 mg 1 capsule 30 minutes before morning meal Orally On a day Active Chlorthalidone 25 MG 1 tablet in the morning with food Orally 3 days a week (M,W,F) Active Fiber - as directed Orally Active Cetirizine HCl 10 MG 1 tablet Orally Once a day for 90 day(s) May, Not-Taking PROCEDURES No Information RESULTS No Results REASON FOR VISIT urinary symptoms MEDICAL (GENERAL) HISTORY Type Description Date Medical [...] History SKs - Follows with Derm in [place], Dr Turpin Surgical History x2 D & [...] Treatment Notes Treatm ent Clinical Notes Apr, Dysuria (ICD-10 - R30.0) PLAN OF TREATMENT Medication Medication Name Sig Start Date Stop Date Macrobid 100 MG 1 cap Orally bid for 10 day(s) Apr, Future Test Test Name Order Date URINE CULTURE [id number] UA URINALYSIS [id number] Next Appt Details Provider Name:Meghan Canas, 2021-06-04 10:3 0:00 AM, [address] [facility], , [place], [address], Provider Name:Yenifer Washington, 02:15:00 PM, [address] [facility], , [place], [address], Insurance Providers Payer Name Payer Address Payer Phone Insured Name Patient Relati onship to Insured Coverage Start Date Coverage End Date MEDICARE Part A and B [address] [facility] [phone] EDITH CHAPA [facility] BCBS OF [facility] [phone] [facility] [address] LIZETTE CHAPA
--- OUTSIDE RECORDS SUMMARY | 2021-05-18 13:34 | CCD ---
Author Author [facility] Organization 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 Active confirmed 917271015 Problem Reflux esophagitis K21.0 Active confirmed 2 17468636 Problem Other chronic pain G89.29 Active confirmed 8 7385552 Problem Degenerative disc disease, lumbar M51.36 Active confirmed 97673064 Problem Intervertebral disc disorder with radiculopathy of lumbar region M51.16 Active confirmed 94486562 Problem Female cystocele N81.10 Active confirmed 252 356276 Problem Sacroiliac pain M53.3 Active confirmed 2023 79134 Problem Piriformis syndrome of right side G57.01 Active confirmed 576478829155815 Problem Essential hypertension I10 Active confirmed 10019342 Problem Lumbar spondylosis M47.816 Active confirmed 496003181 Problem Overactive bladder N32.81 Active confirmed 2 26249808 Problem Stress incontinence N39.3 Active confirmed 72813402 Problem Pelvic pressure in female N94.89 Active confirmed 166579190 Problem Spinal enthesopathy, lumbar region M46.06 Activ e confirmed 97207135 Problem Intervertebral disc disorder with radiculopathy of lumbosacral region M51.17 Active confirmed 17095365 Problem Environmental allergies Z91.09 Active confirmed 835589426 Problem Constipation, unspecified constipation type K59.00 Active confirmed 48193006 Problem History of basal cell carcinoma Z85.828 Active confirmed 410124550 Problem Myalgia M79.1 Active confirmed 34338918 Problem UTI (urinary tract infection) N39.0 Active confirm ed 82595702 Problem Myofascial pain syndrome M79.1 Active confirmed 19453143 Problem Sacroiliitis, not elsewhere classified M46.1 A ctive confirmed 160616469 Problem Endometrial hyperplasia N85.00 Active confirmed 994468150 Problem Bladder spasms N32.89 Active confirmed 98234 7006 Problem Microalbuminuria R80.9 Active confirmed 312 306899 Problem Vaginal atrophy N95.2 Active confirmed 2971 64552 ALLERGIES Allergen (clinical drug ingredient) Drug/Non Drug Allergy do cumented on EMR Reaction Allergy Type Onset Date Status Elavil ineffective Drug Allergy Active Pollen Pollen sneezing, watery eyes, sinus congestion Drug Al lergy Active penicillin V Penicillin V Potassium(NDC Code:[address]-79) Hives Drug Allergy Active duloxetine Cymbalta(NDC Code:[address]-66) Nausea , RHODES, Dizzines s Drug Allergy Active risedronate Actonel(NDC Code:[address]-42) back pain Drug Allergy Active Flexeril Hives Drug Allergy Active Sulfasalazine Sulfa Antibiotics Hives Drug Allergy Ac tive ENCOUNTERS from 1945 to 2021-05-15 Encounter Location Date Provider Diagnosis [address] [phone] [place] [address] Apr, Meghan Canas IMMUNIZATIONS Vaccine Route Administration Date Status COVID-19 [...] Education Language: Question Answer Notes Languages spoken: Thai Orthodoxy: Question Answer Notes Orthodoxy 33 None Sexual Hx: Question Answer Notes [...] Notes Start Da te End Date Status Meloxicam 7.5 mg take 1-2 tablets daily as ne eded for pain orally/ MDD=2 Daily for 90 day(s) taking 6 days a week Active Macrobid 100 MG 1 cap Orally bid for 10 day(s) Apr, 1 Active Chlorthalidone 25 MG 1 tablet in the morning with food Orally 3 days a week (M,W,F) Active EpiPen 2-Reyes 0.3 MG/0.3ML (1:1000) injection Intramusc ular As needed for 90 days Active Vitamin D 400 UNIT 1 tablet Orally every other day Not-Taking Calcium 600 + D 600-400 MG-UNIT 1 tablet Orally daily Active Ciprofloxacin HCl 500 MG 1 tablet Orally every 12 hrs for 7 day( s) Apr, Active Atorvastatin Calcium 20 mg TAKE 1 TABLET DAILY Active Fiber - as directed Orally Active Omeprazole 20 mg 1 capsule 30 minutes before morning meal Orally On a day Active Colace 100 MG 1 capsule Orally Daily Sep, Active Cetirizine HCl 10 MG 1 tablet Orally Once a day for 90 day(s) May, Not-Taking PROCEDURES No Information RESULTS No Results REASON FOR VISIT sharp upper back pain MEDICAL (GENERAL) HISTORY Type Description Date Medical [...] 4.6 cm stable benign hemangioma on CT Medical History SKs - Follows with Derm in [place], Dr Turpin Surgical History x2 D & C 1997,2000 Surgical History vaginal cyst 04/28 Surgical History ganglion cyst R hand 07/25 Surgical History parathyroidectomy adenoma - Dr Wesley 6 Surgical History colonoscopy, has had 3 - andrew or polyps, Abelino - diverticulosis, (no polyps in ) 11/29 Surgical History tonsillectomy age 7 Surgical History 2 basal cell cancer surgeries on face Surgical History Endometrial biopsy and D&C -Dr. Bray 03/26 017 and 10/2017 Surgical History colonoscopy with polyp resection, tubula r adenoma - Abelino 01/09 Hospitalization History Parathyroidectomy 04/29 Goals Section No Information Health Concerns No Information MEDICAL EQUIPMENT No Information MENTAL STATUS No Information FUNCTIONAL STATUS No Information ASSESSMENTS No Information PLAN OF TREATMENT Next Appt Details Provider Name:Yenifer Washington, 02:15:00 PM, [address] [facility], , [place], [address], Provider Name:Yasmin Avitia, 2021-11-05 09:00:00 AM, [address] [facility], , [place], [address], Insurance Providers Payer Name Payer Address Payer Phone Insured Name Patient Relati onship to Insured Coverage Start Date Coverage End Date MEDICARE Part A and B [address] [facility] [id number] [phone] EDITH CHAPA [facility] BCBS OF [facility] [phone] [facility] [address] LIZETTE CHAPA
--- OUTSIDE RECORDS SUMMARY | 2021-05-18 13:35 | CCD ---
Author Author [facility] Organization [facility] Address Unknown Phone Unavailable Care Team Providers Care Trouble Clerk Name Role Phone Ken Vides Unavailable PROBLEMS Type Condition ICD9-CM Code [id number] Code Onset Dates Condition S tatus W/U Status Risk SNOMED Code Notes Problem Allergic rhinitis, cause unspecified J30.9 Act pete confirmed 55515397 Problem Age-related bone loss M85.80 Active confirmed 90802521 Problem Reflux esophagitis K21.0 Active confirmed 2 34507605 Problem Mixed hyperlipidemia E78.2 Active confirmed 948798367 Problem Degenerative disc disease, lumbar M51.36 Active confirmed 34872092 Problem 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 Active confirmed 400594252 Problem Female cystocele N81.10 Active confirmed 252 086006 Problem Pelvic pressure in female N94.89 Active confirmed 245446113 Problem Piriformis syndrome of right side G57.01 Active confirmed 680991600915698 Problem Sacroiliitis, not elsewhere classified M46.1 A ctive confirmed 151058233 Problem Lumbar spondylosis M47.816 Active confirmed 815647023 Problem Sacroiliac pain M53.3 Active confirmed 202 46116 Problem Stress incontinence N39.3 Active confirmed 91394376 Problem Essential hypertension I10 Active confirmed 50761209 Problem Spinal enthesopathy, lumbar region M46.06 Activ e confirmed 46545575 Problem Overactive bladder N32.81 Active confirmed 2 68132896 Problem Intervertebral disc disorder with radiculopathy of lumbar region M51.16 Active confirmed 67564508 Problem Intervertebral disc disorder with radiculopathy of lumbosacral region M51.17 Active confirmed 74140316 Problem Environmental allergies Z91.09 Active confirmed 713744828 Problem Vaginal atrophy N95.2 Active confirmed 2971 70991 Problem Myofascial pain syndrome M79.1 Active confirmed 10526091 Problem History of basal cell carcinoma Z85.828 Active confirmed 831062114 Problem Other chronic pain G89.29 Active confirmed 8 9347808 Problem Myalgia M79.1 Active confirmed 14732836 Problem Constipation, unspecified constipation type K59.00 Active confirmed 76914076 Problem Endometrial hyperplasia N85.00 Active confirmed 640398641 Problem Bladder spasms N32.89 Active confirmed 50536 7006 Problem Microalbuminuria R80.9 Active confirmed 312 401022 ALLERGIES Allergen (clinical drug ingredient) Drug/Non Drug Allergy do cumented on EMR Reaction Allergy Type Onset Date Status Sulfa (for allergy use only) Hives Drug Allergy Active Elavil ineffective Drug Allergy Active penicillin V Penicillin V Potassium([facility] Code:[address]-82) Hives Drug Allergy Active duloxetine Cymbalta([facility] Code:[address]-97) Nausea , RHODES, Dizzines s Drug Allergy Active risedronate Actonel([facility] Code:[address]-92) back pain Drug Allergy Active Flexeril Hives Drug Allergy Active Environmental sneezing, watery eyes, sinus congestion Non Drug Allergy Active ENCOUNTERS from 1945 to 2021-03-09 Encounter Location Date Provider Diagnosis [place] [id number] [facility] [phone] [place] [address] Feb, Ken [place] Environmental allergies Z91. 09 IMMUNIZATIONS Vaccine Route Administration Date Status COVID-19 [...] Education Language: Question Answer Notes Languages spoken: German Hoahaoism: Question Answer Notes Hoahaoism 33 None Sexual Hx: Question Answer Notes [...] Notes Start Da te End Date Status Atorvastatin Calcium 20 mg TAKE 1 TABLET DAILY Active Colace 100 MG 1 capsule Orally Daily Sep, Active Calcium 600 + D 600-400 MG-UNIT 1 tablet Orally daily Active Cetirizine HCl 10 MG 1 tablet Orally Once a day for 90 day(s) May, Not-Taking Vitamin D 400 UNIT 1 tablet Orally every other day Not-Taking EpiPen 2-Reyes 0.3 MG/0.3ML (1:1000) injection Intramusc ular As needed for 90 days Active Omeprazole 20 mg 1 capsule 30 minutes before morning meal Orally On a day Active Meloxicam 7.5 mg take 1-2 tablets daily as ne eded for pain orally/ MDD=2 Daily for 90 day(s) taking 6 days a week Active Chlorthalidone 25 MG 1 tablet in the morning with food Orally 3 days a week (M,W,F) Active Fiber - as directed Orally Active PROCEDURES No Information RESULTS No Results REASON FOR VISIT refill MEDICAL (GENERAL) HISTORY Type Description Date Medical [...] History SKs - Follows with Derm in [place], Dr Turpin Surgical History x2 D & C 1997,2000 Surgical History vaginal cyst 04/28 Surgical History ganglion cyst R hand 07/25 Surgical History parathyroidectomy adenoma - Dr Wesley Surgical History colonoscopy, has had 3 - [...] Notes Treatment Notes Treatm ent Clinical Notes Feb, Environmental allergies (ICD-10 - Z91.09) PLAN OF TREATMENT Medication Medication Name Sig Start Date Stop Date EpiPen 2-Reyes 0.3 MG/0.3ML (1:1000) injection Intramusc ular As needed for 90 days Chlorthalidone 25 MG 1 tablet in the morning with food Orally 3 days a week (M,W,F) Next Appt Details Provider Name:Dora De Oliveira, 2021-04-07 03:40:00 PM, [address] [place] [address], , [place], [address], Provider Name:Meghan Canas, 2021-06-04 10:3 0:00 AM, [facility], , [place], [address], Provider Name:Yenifer Washington, 04:00:00 PM, [address] [facility], , [place], [address], Insurance Providers Payer Name Payer Address Payer Phone Insured Name Patient Relati onship to Insured Coverage Start Date Coverage End Date MEDICARE Part A and B [facility] [id number] [place] [phone] EDITH CHAPA [facility] BC[place] OF [place] [facility] [phone] [place] [facility] [id number] [address]APA
--- OUTSIDE RECORDS SUMMARY | 2021-05-18 13:35 | CCD ---
Author Author [facility] Organization [facility] Address Unknown Phone Unavailable Care Team Providers Care Vegetable Grower Name Role Phone Dora De Oliveira Unavailable PROBLEMS Type Condition ICD9-CM Code [id number] Code Onset Dates Condition S tatus W/U Status Risk SNOMED Code Notes Problem Allergic rhinitis, cause unspecified J30.9 Act pete confirmed 24949001 Problem Age-related bone loss M85.80 Active confirmed 55380566 Problem Reflux esophagitis K21.0 Active confirmed 2 54173931 Problem Mixed hyperlipidemia E78.2 Active confirmed 995583690 Problem Degenerative disc disease, lumbar M51.36 Active confirmed 18171464 Problem 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 Active confirmed 333582349 Problem Female cystocele N81.10 Active confirmed 252 606616 Problem Pelvic pressure in female N94.89 Active confirmed 903393816 Problem Piriformis syndrome of right side G57.01 Active confirmed 605292263805178 Problem Sacroiliitis, not elsewhere classified M46.1 A ctive confirmed 197980603 Problem Lumbar spondylosis M47.816 Active confirmed 592336752 Problem Sacroiliac pain M53.3 Active confirmed 202 56049 Problem Stress incontinence N39.3 Active confirmed 83435276 Problem Essential hypertension I10 Active confirmed 64925429 Problem Spinal enthesopathy, lumbar region M46.06 Activ e confirmed 74690133 Problem Overactive bladder N32.81 Active confirmed 2 97473356 Problem Intervertebral disc disorder with radiculopathy of lumbar region M51.16 Active confirmed 55009194 Problem Intervertebral disc disorder with radiculopathy of lumbosacral region M51.17 Active confirmed 42965823 Problem Environmental allergies Z91.09 Active confirmed 509234041 Problem Vaginal atrophy N95.2 Active confirmed 2971 93342 Problem Myofascial pain syndrome M79.1 Active confirmed 84785541 Problem History of basal cell carcinoma Z85.828 Active confirmed 817504617 Problem Other chronic pain G89.29 Active confirmed 8 5292832 Problem Myalgia M79.1 Active confirmed 59061980 Problem Constipation, unspecified constipation type K59.00 Active confirmed 57141525 Problem Endometrial hyperplasia N85.00 Active confirmed 346208267 Problem Bladder spasms N32.89 Active confirmed 61957 7006 Problem Microalbuminuria R80.9 Active confirmed 312 444713 ALLERGIES Allergen (clinical drug ingredient) Drug/Non Drug Allergy do cumented on EMR Reaction Allergy Type Onset Date Status Sulfa (for allergy use only) Hives Drug Allergy Active Elavil ineffective Drug Allergy Active penicillin V Penicillin V Potassium([facility] Code:[address]-27) Hives Drug Allergy Active duloxetine Cymbalta([facility] Code:[address]-62) Nausea , RHODES, Dizzines s Drug Allergy Active risedronate Actonel([facility] Code:[address]-30) back pain Drug Allergy Active Flexeril Hives Drug Allergy Active Environmental sneezing, watery eyes, sinus congestion Non Drug Allergy Active ENCOUNTERS from 1945 to 2021-02-27 Encounter Location Date Provider Diagnosis [facility] [address] [facility] [phone] [place] [address] Feb, Dora De Oliveira IMMUNIZATIONS Vaccine Route Administration Date Status COVID-19 [...] Education Language: Question Answer Notes Languages spoken: Sinhala Buddhist: Question Answer Notes Buddhist 33 None Sexual Hx: Question Answer Notes [...] Information RESULTS No Results REASON FOR VISIT MAMMO ORDER MEDICAL (GENERAL) HISTORY Type Description Date Medical [...] History SKs - Follows with Derm in [place], Dr Turpin Surgical History x2 D & [...] Information ASSESSMENTS No Information PLAN OF TREATMENT Medication Medication Name Sig Start Date Stop Date Chlorthalidone 25 MG 1 tablet in the morning with food Orally 3 days a week (M,W,F) Next Appt Details Provider Name:Dora De Oliveira, 2021-04-07 03:40:00 PM, [address] [place] [address], , [place], [address], Provider Name:Meghan Canas, 2021-06-04 10:3 0:00 AM, [address] [place] [address] , [place], [address], Provider Name:Yenifer Washington, 04:00:00 PM, [address] [facility], , [place], [address], Insurance Providers Payer Name Payer Address Payer Phone Insured Name Patient Relati onship to Insured Coverage Start Date Coverage End Date MEDICARE Part A and B [address] [facility] [phone] [phone] EDITH CHAPA [facility] BC[place] OF [place] [facility] [phone] [facility] [place] [facility] [address] [address]
--- OUTSIDE RECORDS SUMMARY | 2021-05-18 13:35 | CCD ---
Author Author [facility] Organization [facility] Address Unknown Phone Unavailable Support Name Relationship Address Phone RETIRED Next Of Kin RE RE, RE RE LIZETTE CHAPA Next Of Kin [address] [place] [address] Lizette Chapa ECON [address] [place] [address] Unavailable Re-disclosure Warning The records that you are about to access may contain information from federally-assisted alcohol or drug abuse programs. If such information is present, then the following federally mandated warning applies: This information has been disclosed to you from records protected by federal confidentiality rules (42 CFR part 2). The federal rules prohibit you from making any further disclosure of this information unless further disclosure is expressly permitted by the written consent of the person to whom it pertains or as otherwise permitted by 42 CFR part 2. A general authorization for the release of medical or other information is NOT sufficient for this purpose. The Federal rules restrict any use of the information to criminally investigate or prosecute any alcohol or drug abuse patient.The records that you are about to access may contain highly sensitive health information, the redisclosure of which is protected by Article 27-F of the [facility] Public Health law. If you continue you may have access to information: Regarding HIV / AIDS; Provided by facilities licensed or operated by the [facility] Office of Mental Health; or Provided by the [facility] Office for People With Developmental Disabilities. If such information is present, then the following [facility] mandated warning applies: This information has been disclosed to you from confidential records which are protected by state law. State law prohibits you from making any further disclosure of this information without the specific written consent of the person to whom it pertains, or as otherwise permitted by law. Any unauthorized further disclosure in violation of state law may result in a fine or retirement sentence or both. A general authorization for the release of medical or other information is NOT sufficient authorization for further disc losure. Family History Family Member Name Family Member Gender Family Member Status Date o f Status Description Data Source(s) Unknown Female Problem MEDENT ([facility]) Unknown Male Problem MEDENT ([facility]) age 50 Unknown Unknown Problem MEDENT ([facility]) Unknown Female Problem MEDENT ([facility]) Unknown Female Problem MEDENT ([facility]) Unknown Unknown Problem MEDENT ([facility]) Encounters Encounter Providers Location Date Indications Data Source(s ) [place] [address] [facility] [address] 05/14/2021 12:00:00 AM EDT eCW1 ([facility]) [place] [address] [facility] [address] 04/27/2021 12:00:00 AM EDT eCW1 ([facility]) [place] [address] [facility] [place] [address] 04/24/2021 12:00:00 AM EDT eCW1 ([facility]) [place] [address] [facility] [address] 04/07/2021 12:00:00 AM EDT eCW1 ([facility]) [place] [address] [facility] [place] [address] 03/09/2021 12:00:00 AM EDT eCW1 ([facility]) [place] [address] [facility] [place] [address] 02/25/2021 12:00:00 AM EDT eCW1 ([facility]) [place] [address] [facility] [address] 02/12/2021 12:00:00 AM EDT eCW1 ([facility]) [place] [address] [facility] [place] [address] 02/09/2021 12:00:00 AM EDT eCW1 ([facility]) [place] [address] [facility] [place] [address] 02/06/2021 12:00:00 AM EDT eCW1 ([facility]) [place] [address] [facility] [address] 01/19/2021 12:00:00 AM EDT eCW1 ([facility]) [place] [address] [facility] [address] 01/19/2021 12:00:00 AM EDT eCW1 ([facility]) [place] [address] [facility] [address] 01/15/2021 12:00:00 AM EDT eCW1 ([facility]) [place] [address] [facility] [address] 12/16/2020 12:00:00 AM EDT eCW1 ([facility]) [place] [address] [facility] [address] 12/15/2020 12:00:00 AM EDT eCW1 ([facility]) [place] [address] [facility] [address] 12/04/2020 12:00:00 AM EDT eCW1 ([facility]) [place] [address] [facility] [address] 11/24/2020 12:00:00 AM EDT eCW1 ([facility]) [place] [address] [facility] [address] 09/29/2020 12:00:00 AM EST eCW1 ([facility]) [place] [address] [facility] [address] 05/28/2020 12:00:00 AM EST eCW1 ([facility]) [place] [address] [facility] [address] 05/28/2020 12:00:00 AM EST eCW1 ([facility]) [place] [address] [facility] [address] 05/28/2020 12:00:00 AM EST eCW1 ([facility]) [facility] [place] [address] [facility] [address] 05/07/2020 12:00:00 AM EDT eCW1 ([facility]) Immunizations Vaccine Date Status Description Data Source(s) COVID-19 dose #2 given elsewhere Unspecified 12/04/2020 10:3 7:00 AM EDT completed eCW1 ([facility]) COVID-19 dose #1 given elsewhere Unspecified 12/04/2020 10:3 7:00 AM EDT completed eCW1 ([facility]) COVID-19 dose #1 given elsewhere Unspecified 12/04/2020 10:3 7:00 AM EDT completed eCW1 ([facility]) COVID-19 dose #2 given elsewhere Unspecified 12/04/2020 10:3 7:00 AM EDT completed eCW1 ([facility]) COVID-19 dose #2 given elsewhere Unspecified 12/04/2020 10:3 7:00 AM EDT completed eCW1 ([facility]) COVID-19 dose #1 given elsewhere Unspecified 12/04/2020 10:3 7:00 AM EDT completed eCW1 ([facility]) COVID-19 dose #2 given elsewhere Unspecified 12/04/2020 10:3 7:00 AM EDT completed eCW1 ([facility]) COVID-19 dose #1 given elsewhere Unspecified 12/04/2020 10:3 7:00 AM EDT completed eCW1 ([facility]) COVID-19 dose #1 given elsewhere Unspecified 12/04/2020 10:3 7:00 AM EDT completed eCW1 ([facility]) COVID-19 dose #2 given elsewhere Unspecified 12/04/2020 10:3 7:00 AM EDT completed eCW1 ([facility]) COVID-19 dose #1 given elsewhere Unspecified 12/04/2020 10:3 7:00 AM EDT completed eCW1 ([facility]) COVID-19 dose #2 given elsewhere Unspecified 12/04/2020 10:3 7:00 AM EDT completed eCW1 ([facility]) COVID-19 dose #2 given elsewhere Unspecified 12/04/2020 10:3 7:00 AM EDT completed eCW1 ([facility]) COVID-19 dose #1 given elsewhere Unspecified 12/04/2020 10:3 7:00 AM EDT completed eCW1 ([facility]) COVID-19 dose #2 given elsewhere Unspecified 12/04/2020 10:3 7:00 AM EDT completed eCW1 ([facility]) COVID-19 dose #1 given elsewhere Unspecified 12/04/2020 10:3 7:00 AM EDT completed eCW1 ([facility]) COVID-19 dose #2 given elsewhere Unspecified 12/04/2020 10:3 7:00 AM EDT completed eCW1 ([facility]) COVID-19 dose #1 given elsewhere Unspecified 12/04/2020 10:3 7:00 AM EDT completed eCW1 ([facility]) COVID-19 dose #2 given elsewhere Unspecified 12/04/2020 10:3 7:00 AM EDT completed eCW1 ([facility]) COVID-19 dose #1 given elsewhere Unspecified 12/04/2020 10:3 7:00 AM EDT completed eCW1 ([facility]) COVID-19 dose #2 given elsewhere Unspecified 12/04/2020 10:3 7:00 AM EDT completed eCW1 ([facility]) COVID-19 dose #1 given elsewhere Unspecified 12/04/2020 10:3 7:00 AM EDT completed eCW1 ([facility]) COVID-19 dose #2 given elsewhere Unspecified 12/04/2020 10:3 7:00 AM EDT completed eCW1 ([facility]) COVID-19 dose #1 given elsewhere Unspecified 12/04/2020 10:3 7:00 AM EDT completed eCW1 ([facility]) COVID-19 dose #2 given elsewhere Unspecified 12/04/2020 10:3 7:00 AM EDT completed eCW1 ([facility]) COVID-19 dose #1 given elsewhere Unspecified 12/04/2020 10:3 7:00 AM EDT completed eCW1 ([facility]) COVID-19 dose #2 given elsewhere Unspecified 12/04/2020 10:3 7:00 AM EDT completed eCW1 ([facility]) COVID-19 dose #1 given elsewhere Unspecified 12/04/2020 10:3 7:00 AM EDT completed eCW1 ([facility]) COVID-19 dose #2 given elsewhere Unspecified 12/04/2020 10:3 7:00 AM EDT completed eCW1 ([facility]) COVID-19 dose #1 given elsewhere Unspecified 12/04/2020 10:3 7:00 AM EDT completed eCW1 ([facility]) COVID-19 VACCINE Moderna 09/30/2020 12:00:00 AM EST completed [facility] Vaccine Series Complete: YESThis Data wa s Submitted to [facility] Via [employer]. COVID-19 VACCINE Moderna 08/26/2020 12:00:00 AM EST completed [facility] Vaccine Series Complete: NOThis Data was Submitted to [facility] Via [employer]. influenza, recombinant, quadrIvalent,injectable, prese rvative free 05/28/2020 02:34:00 PM EST completed eCW1 ([facility]) influenza, recombinant, quadrIvalent,injectable, prese rvative free 05/28/2020 02:34:00 PM EST completed eCW1 ([facility]) influenza, recombinant, quadrIvalent,injectable, prese rvative free 05/28/2020 02:34:00 PM EST completed eCW1 ([facility]) influenza, recombinant, quadrIvalent,injectable, prese rvative free 05/28/2020 02:34:00 PM EST completed eCW1 ([facility]) influenza, recombinant, quadrIvalent,injectable, prese rvative free 05/28/2020 02:34:00 PM EST completed eCW1 ([facility]) influenza, recombinant, quadrIvalent,injectable, prese rvative free 05/28/2020 02:34:00 PM EST completed eCW1 ([facility]) influenza, recombinant, quadrIvalent,injectable, prese rvative free 05/28/2020 02:34:00 PM EST completed eCW1 ([facility]) influenza, recombinant, quadrIvalent,injectable, prese rvative free 05/28/2020 02:34:00 PM EST completed eCW1 ([facility]) influenza, recombinant, quadrIvalent,injectable, prese rvative free 05/28/2020 02:34:00 PM EST completed eCW1 ([facility]) influenza, recombinant, quadrIvalent,injectable, prese rvative free 05/28/2020 02:34:00 PM EST completed eCW1 ([facility]) influenza, recombinant, quadrIvalent,injectable, prese rvative free 05/28/2020 02:34:00 PM EST completed eCW1 ([facility]) influenza, recombinant, quadrIvalent,injectable, prese rvative free 05/28/2020 02:34:00 PM EST completed eCW1 ([facility]) influenza, recombinant, quadrIvalent,injectable, prese rvative free 05/28/2020 02:34:00 PM EST completed eCW1 ([facility]) influenza, recombinant, quadrIvalent,injectable, prese rvative free 05/28/2020 02:34:00 PM EST completed eCW1 ([facility]) influenza, recombinant, quadrIvalent,injectable, prese rvative free 05/28/2020 02:34:00 PM EST completed eCW1 ([facility]) influenza, recombinant, quadrIvalent,injectable, prese rvative free 05/28/2020 02:34:00 PM EST completed eCW1 ([facility]) influenza, recombinant, quadrIvalent,injectable, prese rvative free 05/28/2020 02:34:00 PM EST completed eCW1 ([facility]) influenza, recombinant, quadrIvalent,injectable, prese rvative free 05/28/2020 02:34:00 PM EST completed eCW1 ([facility]) influenza, recombinant, quadrIvalent,injectable, prese rvative free 05/28/2020 02:34:00 PM EST completed eCW1 ([facility]) influenza, recombinant, quadrIvalent,injectable, prese rvative free 05/28/2020 02:34:00 PM EST completed eCW1 ([facility]) Medications Medication Brand Name Start Date Product Form Dose Route Admi nistrative Instructions Pharmacy Instructions Status Indications Reaction Description Data Source(s) Ciprofloxacin 500 MG Oral Tablet Ciprofloxacin HCl 500 MG Ciprofloxacin HCl 500 MG 04/27/2021 12:00:00 AM EDT 1.0 {tablet} activ e Ciprofloxacin HCl 500 MG eCW1 ([facility]) Ciprofloxacin 500 MG Oral Tablet Ciprofloxacin HCl 500 MG Ciprofloxacin HCl 500 MG 04/27/2021 12:00:00 AM EDT 1.0 {tablet} activ e Ciprofloxacin HCl 500 MG eCW1 ([facility]) NITROFURANTOIN, MACROCRYSTALS 25 MG / Ni trofurantoin, Monohydrate 75 MG Oral Capsule [Macrobid] Macrobid 100 MG Macrobid 100 MG 04/24/2021 12:00:00 AM EDT active Macrobid 100 MG eCW1 ([facility]) NITROFURANTOIN, MACROCRYSTALS 25 MG / Ni trofurantoin, Monohydrate 75 MG Oral Capsule [Macrobid] Macrobid 100 MG Macrobid 100 MG 04/24/2021 12:00:00 AM EDT active Macrobid 100 MG eCW1 ([facility]) NITROFURANTOIN, MACROCRYSTALS 25 MG / Ni trofurantoin, Monohydrate 75 MG Oral Capsule 100 mg NITROFURANTOIN MONOHYD/M-[id number] 04/24/2021 12:00:00 AM EDT ca psule 20 TAKE ONE CAPSULE BY MOUTH TWICE A DAY FOR 10 DAYS TAKE ONE CAPSULE BY MOUTH TWICE A DAY FOR 10 DAYS SOLD: 04/24/2021 [facility] NITROFURANTOIN, MACROCRYSTALS 25 MG / Ni trofurantoin, Monohydrate 75 MG Oral Capsule [Macrobid] Macrobid 100 MG Macrobid 100 MG 04/24/2021 12:00:00 AM EDT active Macrobid 100 MG eCW1 ([facility]) cetirizine hydrochloride 10 MG Oral Tablet Cetirizine HCl 10 MG Cetirizine HCl 10 MG 05/28/2020 12:00:00 AM EST 1.0 {tablet} suspe nded Cetirizine HCl 10 MG eCW1 ([facility]) Omeprazole 20 MG Delayed Release Oral Capsule Omeprazole 20 MG 05/28/2020 12:00:00 AM EST active Omeprazo le 20 MG eCW1 ([facility]) cetirizine hydrochloride 10 MG Oral Tablet Cetirizine HCl 10 MG Cetirizine HCl 10 MG 05/28/2020 12:00:00 AM EST 1.0 {tablet} suspe nded Cetirizine HCl 10 MG eCW1 ([facility]) cetirizine hydrochloride 10 MG Oral Tablet Cetirizine HCl 10 MG Cetirizine HCl 10 MG 05/28/2020 12:00:00 AM EST 1.0 {tablet} suspe nded Cetirizine HCl 10 MG eCW1 ([facility]) cetirizine hydrochloride 10 MG Oral Tablet Cetirizine HCl 10 MG Cetirizine HCl 10 MG 05/28/2020 12:00:00 AM EST 1.0 {tablet} suspe nded Cetirizine HCl 10 MG eCW1 ([facility]) Omeprazole 20 MG Delayed Release Oral Capsule Omeprazole 20 MG 05/28/2020 12:00:00 AM EST active Omeprazo le 20 MG eCW1 ([facility]) Omeprazole 20 MG Delayed Release Oral Capsule Omeprazole 20 MG 05/28/2020 12:00:00 AM EST active Omeprazo le 20 MG eCW1 ([facility]) cetirizine hydrochloride 10 MG Oral Tablet Cetirizine HCl 10 MG Cetirizine HCl 10 MG 05/28/2020 12:00:00 AM EST 1.0 {tablet} suspe nded Cetirizine HCl 10 MG eCW1 ([facility]) cetirizine hydrochloride 10 MG Oral Tablet Cetirizine HCl 10 MG Cetirizine HCl 10 MG 05/28/2020 12:00:00 AM EST 1.0 {tablet} activ e Cetirizine HCl 10 MG eCW1 ([facility]) Omeprazole 20 MG Delayed Release Oral Capsule Omeprazole 20 MG 05/28/2020 12:00:00 AM EST active Omeprazo le 20 MG eCW1 ([facility]) cetirizine hydrochloride 10 MG Oral Tablet Cetirizine HCl 10 MG Cetirizine HCl 10 MG 05/28/2020 12:00:00 AM EST 1.0 {tablet} suspe nded Cetirizine HCl 10 MG eCW1 ([facility]) cetirizine hydrochloride 10 MG Oral Tablet Cetirizine HCl 10 MG Cetirizine HCl 10 MG 05/28/2020 12:00:00 AM EST 1.0 {tablet} suspe nded Cetirizine HCl 10 MG eCW1 ([facility]) cetirizine hydrochloride 10 MG Oral Tablet Cetirizine HCl 10 MG Cetirizine HCl 10 MG 05/28/2020 12:00:00 AM EST 1.0 {tablet} suspe nded Cetirizine HCl 10 MG eCW1 ([facility]) Omeprazole 20 MG Delayed Release Oral Capsule Omeprazole 20 MG 05/28/2020 12:00:00 AM EST active Omeprazo le 20 MG eCW1 ([facility]) cetirizine hydrochloride 10 MG Oral Tablet Cetirizine HCl 10 MG Cetirizine HCl 10 MG 05/28/2020 12:00:00 AM EST 1.0 {tablet} suspe nded Cetirizine HCl 10 MG eCW1 ([facility]) cetirizine hydrochloride 10 MG Oral Tablet Cetirizine HCl 10 MG Cetirizine HCl 10 MG 05/28/2020 12:00:00 AM EST 1.0 {tablet} suspe nded Cetirizine HCl 10 MG eCW1 ([facility]) cetirizine hydrochloride 10 MG Oral Tablet Cetirizine HCl 10 MG Cetirizine HCl 10 MG 05/28/2020 12:00:00 AM EST 1.0 {tablet} activ e Cetirizine HCl 10 MG eCW1 ([facility]) cetirizine hydrochloride 10 MG Oral Tablet Cetirizine HCl 10 MG Cetirizine HCl 10 MG 05/28/2020 12:00:00 AM EST 1.0 {tablet} suspe nded Cetirizine HCl 10 MG eCW1 ([facility]) cetirizine hydrochloride 10 MG Oral Tablet Cetirizine HCl 10 MG Cetirizine HCl 10 MG 05/28/2020 12:00:00 AM EST 1.0 {tablet} suspe nded Cetirizine HCl 10 MG eCW1 ([facility]) Omeprazole 20 MG Delayed Release Oral Capsule Omeprazole 20 MG 05/28/2020 12:00:00 AM EST active Omeprazo le 20 MG eCW1 ([facility]) Omeprazole 20 MG Delayed Release Oral Capsule Omeprazole 20 MG 05/28/2020 12:00:00 AM EST active Omeprazo le 20 MG eCW1 ([facility]) Omeprazole 20 MG Delayed Release Oral Capsule Omeprazole 20 MG 05/28/2020 12:00:00 AM EST active Omeprazo le 20 MG eCW1 ([facility]) cetirizine hydrochloride 10 MG Oral Tablet Cetirizine HCl 10 MG Cetirizine HCl 10 MG 05/28/2020 12:00:00 AM EST 1.0 {tablet} activ e Cetirizine HCl 10 MG eCW1 ([facility]) Omeprazole 20 MG Delayed Release Oral Capsule Omeprazole 20 MG 05/28/2020 12:00:00 AM EST active Omeprazo le 20 MG eCW1 ([facility]) cetirizine hydrochloride 10 MG Oral Tablet Cetirizine HCl 10 MG Cetirizine HCl 10 MG 05/28/2020 12:00:00 AM EST 1.0 {tablet} suspe nded Cetirizine HCl 10 MG eCW1 ([facility]) cetirizine hydrochloride 10 MG Oral Tablet Cetirizine HCl 10 MG Cetirizine HCl 10 MG 05/28/2020 12:00:00 AM EST 1.0 {tablet} suspe nded Cetirizine HCl 10 MG eCW1 ([facility]) cetirizine hydrochloride 10 MG Oral Tablet Cetirizine HCl 10 MG Cetirizine HCl 10 MG 05/28/2020 12:00:00 AM EST 1.0 {tablet} activ e Cetirizine HCl 10 MG eCW1 ([facility]) Omeprazole 20 MG Delayed Release Oral Capsule Omeprazole 20 MG 05/28/2020 12:00:00 AM EST active Omeprazo le 20 MG eCW1 ([facility]) cetirizine hydrochloride 10 MG Oral Tablet Cetirizine HCl 10 MG Cetirizine HCl 10 MG 05/28/2020 12:00:00 AM EST 1.0 {tablet} suspe nded Cetirizine HCl 10 MG eCW1 ([facility]) cetirizine hydrochloride 10 MG Oral Tablet Cetirizine HCl 10 MG Cetirizine HCl 10 MG 05/28/2020 12:00:00 AM EST 1.0 {tablet} activ e Cetirizine HCl 10 MG eCW1 ([facility]) Insurance Providers Payer name Policy type / Coverage type Policy ID Covered green party ID Covered green party's relationship to mann Policy Mann Plan Information [place] 302/307 [id number] 2 [id number] [place] 305/805 [id number] 2 [id number] [place] 305/805 [id number] HU2 [id number] [place] 305/805 [id number] MEDICARE [id number] SP [id number] A [place] 305/805 [id number] SP [id number] BS [place] Medig[place] Part B [id number] Self MEDICARE [id number] SP [id number] A MEDICARE [id number] SP [id number] [place] Primary [id number] Self BS [place] Part B [id number] Medicare [place] Medicare Primary [id number] Self BS [place] Medig[place] Part B [id number] Self 302/802 [place] 302/307 [id number] 2 [id number] ANSI-Medicare Part B [id number] ANSI-Medicare Part B [id number] ANSI-Commercial [id number] ANSI-Commercial [id number] ANS-Medicare Part B [id number] MEDICARE [id number] A [place] 306/806 [id number] 2 [id number] MEDICARE [id number] A [place] 306/806 [id number] 2 [id number] [facility] BCBS [facility] Part B [id number] Family Dependent [id number] Medicare [place] Medicare Primary [id number] [facility] [id number] BS Of [place] [facility] Part B [id number] Family Dependent [id number] [place] Primary [id number] ..[id number] Self [id number] [place] P[place] 302/307 [id number] HU2 [id number] [employer] BS Medigap Part B [id number] Family Dependent [id number] Medicare [place]/[facility] Medicare Primary [id number] Self [id number] [facility] Medigap Part B [id number] Family Dependent [id number] [place] Medicare Primary [id number] Self [id number] [facility] B [id number] S VYW MEDICARE C [id number] S [id number] A BCBS [employer] Ppo U/[place] Medigap Part B [id number] Family Dependent V [id number] Medicare (Part B) Medicare Primary [id number] Self 0 [id number] [facility] Medigap Part B [id number] Family Dependent [id number] [place]/[facility] Medicare Primary [id number] Self [id number] BCBS [place] Ppo U/W Medigap Part B [id number] Family Dependent V [id number] Medicare (Part B) Medicare Primary [id number] Self 0 [id number] [facility] BCBS Medigap Part B [id number] Family Dependent [id number] Medicare [place]/[facility] Medicare Primary [id number] Self [id number] BCBS/[employer] Medigap Part B [id number] Family Dependent [id number] Medicare Natl Gov't Servi Medicare Primary [id number] Self [id number] [facility] BCBS B [id number] S [id number] [id number] [place] P[place] 302/307 [id number] SP [id number] SELF PAY UNAVAILABLE SP UNAVAILA BLE BCBS [place] DIV UNAVAILABLE UNAVAILABLE BS/W/Id#Prefix/W ALL #'S [facility] Part B [id number] Family Dep endent Medicare Natl Gov't Servi Medicare Primary [id number] Self [place]BS [place] PPO 302/307 [id number] SP [id number] [place] PPO 302/307 [id number] SP [id number] [place] 304/804 [id number] SP [id number] [place]ICARE - [place] MCR [id number] S [id number] [place] M[place] UNAVAILABLE UNAVAILABLE [place] 302/307 [id number] [id number] MEDICARE [id number] SP [id number] E24 [place] 306/806 [id number] HU2 [id number] [place] 306/806 [id number] 2 [id number] MEDICARE [id number] SP [id number] BCBS [employer] [facility] Part B [id number] Family Dependent [id number] Medicare (Part B) Medicare Primary [id number] Self [id number] BCBS [employer] [facility] Part B [id number] Family Dependent [id number] Medicare (Part B) Medicare Primary [id number] Self [id number] ANSI-Commercial [id number] ANSI-Medicare Part B [id number] ANSI-Commercial [id number] ANSI-Medicare Part B [id number] ANSI-Commercial [id number] Problems, Conditions, and Diagnoses Code Display Name Description Problem Type Effective Dates Data Source(s) N39.0 Urinary tract infectious disease UTI (urinary tract in fection) Problem 04/27/2021 12:00:00 AM EDT eCW1 ([facility]) Z85.828 [id number] History of basal cell carcinoma Problem 02/12/2021 12:00:00 AM EDT eCW1 ([facility]) N95.2 [id number] Vaginal atrophy Problem 12/15/2020 12:00:00 AM EDT eCW1 ([facility]) R80.9 [id number] Microalbuminuria Problem 12/04/2020 12:00:00 AM EDT eCW1 ([facility]) Surgeries/Procedures No Information Results ID Date Data Source WWBC DIGITAL / ELIZABETH BILATERAL MAMMO SCREENING (Ultraso und if indicated) 04/07/2021 12:00:00 AM EDT eCW1 ([facility]) Name Value Range Interpretation Code Description Data Jocelyn rce(s) Supporting Document(s) WWBC DIGITAL / ELIZABETH BILAT ERAL MAMMO SCREENING (Ultrasound if indicated) eCW1 ([facility]) ID Date Data Source [id number] 11/24/2020 12:00:00 AM EDT eCW1 ([facility]) Name Value Range Interpretation Code Description Data Jocelyn rce(s) Supporting Document(s) Microalbumin/Creatinine [Mass Ratio] in Urine 119.0 CREATININE, URINE eCW1 ([facility]) Microalbumin/Creatinine [Ratio] in Urine 38.1 0.0-30.0 ANDREY/CREAT RATIO eCW1 ([facility]) Albumin/Creatinine [Mass Ratio] in Urine 45.4 MALB URINE SIEMENS eCW1 ([facility]) ID Date Data Source LIPID PANEL (CARDIAC RISK) 11/24/2020 12:00:00 AM EDT eCW1 ( [facility]) Name Value Range Interpretation Code Description Data Jocelyn rce(s) Supporting Document(s) Cholesterol [Moles/volume] in Serum or Plasma 220 <200 CHOLESTEROL LEVEL eCW1 ([facility]) Triglyceride [Mass/volume] in Serum or Plasma by calculation 91 <150 TRIGLYCERIDES LEVEL eCW1 ([facility]) Cholesterol in HDL [Moles/volume] in Serum or Plasma 90 >40 HDL CHOLESTEROL eCW1 ([facility]) Cholesterol in LDL [Mass/volume] in Serum or Plasma by calculation 112 <100 LDL CHOLESTEROL eCW1 ([facility]) 130 NON-HDL-C eCW1 ([facility]) 2.444 <5 CHOLESTEROL RISK RATIO eCW1 ([facility]) ID Date Data Source Comprehensive Metabolic Profile (CMP) 11/24/2020 12:00:00 AM EDT eCW1 ([facility]) Name Value Range Interpretation Code Description Data Jocelyn rce(s) Supporting Document(s) 19 7-18 BLOOD UREA NITROGEN eCW1 (Counts include 234 beds at the [facility]) 92 70-100 GLUCOSE, FASTING eCW1 (Critical access hospital) 0.70 0.55-1.30 CREATININE FOR GFR eCW1 ([facility]) 141 136-145 SODIUM LEVEL eCW1 ([facility]) > 60.0 >39 GLOMERULAR FILTRATION RATE eCW 1 ([facility]) 4.2 3.5-5.1 POTASSIUM SERUM eCW1 ([facility]) 104 98-107 CHLORIDE LEVEL eCW1 ([facility]) 31 21-32 CARBON DIOXIDE LEVEL eCW1 ([facility]) 9.5 8.8-10.2 CALCIUM LEVEL eCW1 ([facility]) 18 7-37 AST/SGOT eCW1 ([facility]) 23 12-78 ALT/SGPT eCW1 ([facility]) 81 45-117 ALKALINE PHOSPHATASE eCW1 ([facility]) 0.8 0.2-1.0 BILIRUBIN,TOTAL eCW1 ([facility]) 6.3 6.4-8.2 TOTAL PROTEIN eCW1 ([facility]) 1.4 1.2-2.2 ALBUMIN/GLOBULIN RATIO eCW1 ([facility]) 3.7 3.2-5.2 ALBUMIN eCW1 ([facility]) ID Date Data Source URINE CULTURE 09/29/2020 12:00:00 AM EST eCW1 ([facility]) Name Value Range Interpretation Code Description Data Jocelyn rce(s) Supporting Document(s) URINE CULTURE eCW1 ([facility]) ID Date Data Source UA URINALYSIS 09/29/2020 12:00:00 AM EST eCW1 ([facility]) Name Value Range Interpretation Code Description Data Jocelyn rce(s) Supporting Document(s) Laboratory studies (set) UA URINALYS IS eCW1 ([facility]) ID Date Data Source Basic Metabolic Profile (BMP) 05/29/2020 08:47:25 AM EST eCW 1 ([facility]) Name Value Range Interpretation Code Description Data Jocelyn rce(s) Supporting Document(s) 89 GLUCOSE, FASTING eCW1 ([facility]) 18 BLOOD UREA NITROGEN eCW1 (Counts include 234 beds at the [facility]) 140 SODIUM LEVEL eCW1 ([facility]) 0.79 CREATININE FOR GFR eCW1 ([facility]) > 60.0 GLOMERULAR FILTRATION RATE eCW 1 ([facility]) 10.1 CALCIUM LEVEL eCW1 ([facility]) 103 CHLORIDE LEVEL eCW1 ([facility]) 29 CARBON DIOXIDE LEVEL eCW1 ([facility]) 3.5 POTASSIUM SERUM eCW1 ([facility]) Procedure Social History Code Duration Value Status Description Data Source(s ) Smoking 05/15/2021 12:00:00 AM EDT Never Smoker completed Never S moker eCW1 ([facility]) Smoking 04/07/2021 12:00:00 AM EDT Never Smoker completed Never S moker eCW1 ([facility]) Smoking 04/07/2021 12:00:00 AM EDT Never Smoker completed Never S moker eCW1 ([facility]) Smoking 04/07/2021 12:00:00 AM EDT Never Smoker completed Never S moker eCW1 ([facility]) Smoking 02/12/2021 12:00:00 AM EDT Never Smoker completed Never S moker eCW1 ([facility]) Smoking 02/12/2021 12:00:00 AM EDT Never Smoker completed Never S moker eCW1 ([facility]) Smoking 02/12/2021 12:00:00 AM EDT Never Smoker completed Never S moker eCW1 ([facility]) Smoking 02/12/2021 12:00:00 AM EDT Never Smoker completed Never S moker eCW1 ([facility]) Smoking 12/15/2020 12:00:00 AM EDT Never Smoker completed Never S moker eCW1 ([facility]) Smoking 12/15/2020 12:00:00 AM EDT Never Smoker completed Never S moker eCW1 ([facility]) Smoking 12/15/2020 12:00:00 AM EDT Never Smoker completed Never S moker eCW1 ([facility]) Smoking 12/15/2020 12:00:00 AM EDT Never Smoker completed Never S moker eCW1 ([facility]) Smoking 12/15/2020 12:00:00 AM EDT Never Smoker completed Never S moker eCW1 ([facility]) Smoking 12/15/2020 12:00:00 AM EDT Never Smoker completed Never S moker eCW1 ([facility]) Smoking 12/04/2020 12:00:00 AM EDT Former Smoker completed Former Smoker eCW1 ([facility]) Smoking 05/28/2020 12:00:00 AM EST Former Smoker completed Former Smoker eCW1 ([facility]) Smoking 05/28/2020 12:00:00 AM EST Former Smoker completed Former Smoker eCW1 ([facility]) Smoking 05/28/2020 12:00:00 AM EST Former Smoker completed Former Smoker eCW1 ([facility]) Smoking 05/28/2020 12:00:00 AM EST Former Smoker completed Former Smoker eCW1 ([facility]) Smoking 05/28/2020 12:00:00 AM EST Former Smoker completed Former Smoker eCW1 ([facility]) Vital Signs ID Date Data Source UNK Name Value Range Interpretation Code Description Data Source(s) Body weight 163 [lb_av] 163 [lb_av] eCW1 ([facility]) Body height 65.5 [in_i] 65.5 [in_i] eCW1 ([facility]) Body mass index (BMI) [Ratio] 26.71 kg/m2 26.71 kg/m2 eCW1 ([facility]) Systolic blood pressure 102 mm[Hg] 102 mm[Hg] e CW1 ([facility]) Diastolic blood pressure 64 mm[Hg] 64 mm[Hg] eCW1 ([facility]) Body weight 163 [lb_av] 163 [lb_av] eCW1 ([facility]) Body height 65.5 [in_i] 65.5 [in_i] eCW1 ([facility]) Body mass index (BMI) [Ratio] 26.71 kg/m2 26.71 kg/m2 eCW1 ([facility]) Heart rate 91 /min 91 /min eCW1 ([facility]) Respiratory rate 18 /min 18 /min eCW1 ([facility]) Body temperature 96 [degF] 96 [degF] eCW1 ([facility]) Systolic blood pressure 126 mm[Hg] 126 mm[Hg] e CW1 ([facility]) Diastolic blood pressure 76 mm[Hg] 76 mm[Hg] eCW1 ([facility]) Body weight 162 [lb_av] 162 [lb_av] eCW1 ([facility]) Body weight 73.48 kg 73.48 kg eCW1 ([facility] Body height 65.5 [in_i] 65.5 [in_i] eCW1 ([facility]) Body mass index (BMI) [Ratio] 26.55 kg/m2 26.55 kg/m2 eCW1 ([facility]) Systolic blood pressure 120 mm[Hg] 120 mm[Hg] e CW1 ([facility]) Diastolic blood pressure 74 mm[Hg] 74 mm[Hg] eCW1 ([facility]) Body weight 163 [lb_av] 163 [lb_av] eCW1 ([facility]) Body height 65.5 [in_i] 65.5 [in_i] eCW1 ([facility]) Body mass index (BMI) [Ratio] 26.71 kg/m2 26.71 kg/m2 eCW1 ([facility]) Heart rate 82 /min 82 /min eCW1 ([facility]) Respiratory rate 18 /min 18 /min eCW1 ([facility]) Body temperature 97 [degF] 97 [degF] eCW1 ([facility]) Systolic blood pressure 120 mm[Hg] 120 mm[Hg] e CW1 ([facility]) Diastolic blood pressure 80 mm[Hg] 80 mm[Hg] eCW1 ([facility]) Body weight 159 [lb_av] 159 [lb_av] eCW1 ([facility]) Body height 65.5 [in_i] 65.5 [in_i] eCW1 ([facility]) Body mass index (BMI) [Ratio] 26.05 kg/m2 26.05 kg/m2 eCW1 ([facility]) Heart rate 96 /min 96 /min eCW1 ([facility]) Respiratory rate 18 /min 18 /min eCW1 ([facility]) Body temperature 96.7 [degF] 96.7 [degF] eCW1 ( [facility]) Systolic blood pressure 134 mm[Hg] 134 mm[Hg] e CW1 ([facility]) Diastolic blood pressure 90 mm[Hg] 90 mm[Hg] eCW1 ([facility]) Patient Treatment Plan of Care Planned Activity Planned Date Details Description Data Source (s) Ciprofloxacin 500 MG Oral Tablet 04/27/2021 12:00:00 AM EDT eCW1 ([facility]) NITROFURANTOIN, MACROCRYSTALS 25 MG / Ni trofurantoin, Monohydrate 75 MG Oral Capsule [Macrobid] 04/24/2021 12:00:00 AM EDT eC W1 ([facility]) NITROFURANTOIN, MACROCRYSTALS 25 MG / Ni trofurantoin, Monohydrate 75 MG Oral Capsule [Macrobid] 04/24/2021 12:00:00 AM EDT eC W1 ([facility]) Omeprazole 20 MG Delayed Release Oral Capsule 05/28/2020 12:00:00 A M EST eCW1 ([facility]) Omeprazole 20 MG Delayed Release Oral Capsule 05/28/2020 12:00:00 A M EST eCW1 ([facility]) Omeprazole 20 MG Delayed Release Oral Capsule 05/28/2020 12:00:00 A M EST eCW1 ([facility]) cetirizine hydrochloride 10 MG Oral Tablet 05/28/2020 12:00:[address] eCW1 ([facility]) Omeprazole 20 MG Delayed Release Oral Capsule 05/28/2020 12:00:00 A M EST eCW1 ([facility]) cetirizine hydrochloride 10 MG Oral Tablet 05/28/2020 12:00:[address] eCW1 ([facility]) Omeprazole 20 MG Delayed Release Oral Capsule 05/28/2020 12:00:00 A M EST eCW1 ([facility]) cetirizine hydrochloride 10 MG Oral Tablet 05/28/2020 12:00:[address] eCW1 ([facility]) Omeprazole 20 MG Delayed Release Oral Capsule 05/28/2020 12:00:00 A M EST eCW1 ([facility]) cetirizine hydrochloride 10 MG Oral Tablet 05/28/2020 12:00:[address] eCW1 ([facility]) Omeprazole 20 MG Delayed Release Oral Capsule 05/28/2020 12:00:00 A M EST eCW1 ([facility]) cetirizine hydrochloride 10 MG Oral Tablet 05/28/2020 12:00:[address] eCW1 ([facility]) Omeprazole 20 MG Delayed Release Oral Capsule 05/28/2020 12:00:00 A M EST eCW1 ([facility])
--- OUTSIDE RECORDS SUMMARY | 2021-05-18 13:35 | CCD ---
Author Author [facility] Organization [facility] Address Unknown Phone Unavailable Care Team Providers Care Network Associate Name Role Phone Dora De Oliveira Unavailable PROBLEMS Type Condition ICD9-CM Code [id number] Code Onset Dates Condition S tatus W/U Status Risk SNOMED Code Notes Problem Allergic rhinitis, cause unspecified J30.9 Act pete confirmed [id number] Problem Age-related bone loss M85.80 Active confirmed 77122417 Problem Reflux esophagitis K21.0 Active confirmed 2 31656667 Problem Mixed hyperlipidemia E78.2 Active confirmed 180883439 Problem Degenerative disc disease, lumbar M51.36 Active confirmed 15671053 Problem 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 Active confirmed 955478556 Problem Female cystocele N81.10 Active confirmed 252 624588 Problem Pelvic pressure in female N94.89 Active confirmed 571752422 Problem Piriformis syndrome of right side G57.01 Active confirmed 540321259586215 Problem Sacroiliitis, not elsewhere classified M46.1 A ctive confirmed 251569460 Problem Lumbar spondylosis M47.816 Active confirmed 296717433 Problem Sacroiliac pain M53.3 Active confirmed 202 90754 Problem Stress incontinence N39.3 Active confirmed 19869312 Problem Essential hypertension I10 Active confirmed 86827395 Problem Spinal enthesopathy, lumbar region M46.06 Activ e confirmed 71024269 Problem Overactive bladder N32.81 Active confirmed 2 57097220 Problem Intervertebral disc disorder with radiculopathy of lumbar region M51.16 Active confirmed 66954926 Problem Intervertebral disc disorder with radiculopathy of lumbosacral region M51.17 Active confirmed 18297456 Problem Environmental allergies Z91.09 Active confirmed 709816114 Problem Vaginal atrophy N95.2 Active confirmed 2971 53959 Problem Myofascial pain syndrome M79.1 Active confirmed 85472055 Problem History of basal cell carcinoma Z85.828 Active confirmed 141890371 Problem Other chronic pain G89.29 Active confirmed 8 5235084 Problem Myalgia M79.1 Active confirmed 40968522 Problem Constipation, unspecified constipation type K59.00 Active confirmed 17210195 Problem Endometrial hyperplasia N85.00 Active confirmed 801600300 Problem Bladder spasms N32.89 Active confirmed 97723 7006 Problem Microalbuminuria R80.9 Active confirmed 312 475542 ALLERGIES Allergen (clinical drug ingredient) Drug/Non Drug Allergy do cumented on EMR Reaction Allergy Type Onset Date Status Environmental sneezing, watery eyes, sinus congestion Non Drug Allergy Active Elavil ineffective Drug Allergy Active penicillin V Penicillin V Potassium([facility] Code:[address]-66) Hives Drug Allergy Active duloxetine Cymbalta([facility] Code:[address]-46) Nausea , RHODES, Dizzines s Drug Allergy Active risedronate Actonel([facility] Code:[address]-33) back pain Drug Allergy Active Sulfa (for allergy use only) Hives Non Drug Allergy Active Flexeril Hives Drug Allergy Active ENCOUNTERS from 1945 to 2021-04-08 Encounter Location Date Provider Diagnosis [facility] [address] [phone] [place] [address] 14 Mar, 2021 Dora De Oliveira Encounter for other screening for malignant neoplasm of breast Z12.39 ; Encounter for screening mammogram for malignant neoplasm of breast Z12.31 and Asymptomatic postmenopausal status Z78.0 IMMUNIZATIONS Vaccine Route Administration Date Status Influenza (High Dose 65 & up) IM Intramuscular May 10, 2016 A dministered Influenza (High Dose 65 & up) IM Intramuscular Jun 06, 2017 A dministered COVID-19 dose #2 given elsewhere Unspecified Unknown December 04, 2020 Administered Pneumococcal Adult 0.5mL Pneumovax 23 IM Intramuscular Jun 18 013 Administered Influenza (High Dose 65 & up) IM Intramuscular May 01, 2015 A dministered Influenza 6mo & up Fluzone IM Intramuscular May 04, 2012 Admi nistered COVID-19 dose #1 given elsewhere Unspecified Unknown December 04, 2020 Administered Influenza Pharmacy Given Unknown May 09, 2019 Adminis tered Influenza 18 yrs & older Flublok Unknown May 28, 2020 Administered Zoster 50mcg/0.5mL Shingrix IM Intramuscular Jun 01, 2018 Adm inistered TDAP IM Intramuscular November 25, 2015 Administered [...] Education Language: Question Answer Notes Languages spoken: Kyrgyz Zoroastrian: Question Answer Notes Zoroastrian 33 None Sexual Hx: Question Answer Notes [...] REASON FOR REFERRAL No Information VITAL SIGNS Weight 163 lbs Mar, Height 65.5 in Mar, BMI 26.71 kg/m2 Mar, Blood pressure systolic 102 mm Hg Mar, Blood pressure diastolic 64 mm Hg Mar, MEDICATIONS Medication SIG (Take, Route, Frequency, Duration) Notes Start Da te End Date Status EpiPen 2-Reyes 0.3 MG/0.3ML (1:1000) injection Intramusc ular As needed for 90 days Active Atorvastatin Calcium 20 mg TAKE 1 TABLET DAILY Active Meloxicam 7.5 mg take 1-2 tablets daily as ne eded for pain orally/ MDD=2 Daily for 90 day(s) taking 6 days a week Active Cetirizine HCl 10 MG 1 tablet Orally Once a day for 90 day(s) May, Not-Taking Calcium 600 + D 600-400 MG-UNIT 1 tablet Orally daily Active Colace 100 MG 1 capsule Orally Daily Sep, Active Omeprazole 20 mg 1 capsule 30 minutes before morning meal Orally On ce a day Active Chlorthalidone 25 MG 1 tablet in the morning with food Orally 3 days a week (M,W,F) Active Fiber - as directed Orally Active Vitamin D 400 UNIT 1 tablet Orally every other day Not-Taking PROCEDURES No Information RESULTS Component Value Reference Range WWBC DIGITAL / ELIZABETH BILATERAL MAMMO SCRE ENING (Ultrasound if indicated) Reviewed date:04/07/2021 16:33:39 Interpretation:Negative Performing Lab:[facility],[address]], ,[place] [address] REASON FOR VISIT No Information MEDICAL (GENERAL) [...] History SKs - Follows with Derm in [place], Dr Turpin Surgical History x2 D & [...] Notes Treatment Notes Treatm ent Clinical Notes Mar, Encounter for other screenin g for malignant neoplasm of breast (ICD-10 - Z12.39) Mar, Encounter for screening mamm ogram for malignant neoplasm of breast (ICD-10 - Z12.31) Reviewed screening intervals with mammography, recommend annual screening until age 75. Reviewed breast awareness, know what is normal for you so that you can detect any changes in the breasts, check breasts regularly, in a routine that you are comfortable with. 14 Mar, 2021 Asymptomatic postmenopausal status (ICD-10 - Z78 .0) Pt to report any episodes of pmb or pelvic pain. Advise regular physical activity including weight bearing exercise most days of the week. Reviewed calcium rich foods. HCRA completed and reviewed PLAN OF TREATMENT Treatment Notes Assessment Notes Clinical Notes Encounter for screening mammogram for malignant neoplasm of breast Reviewed screening intervals with mammography, recommend annual screening until age 75. Reviewed breast awareness, know what is normal for you so that you can detect any changes in the breasts, check breasts regularly, in a routine that you are comfortable with. Asymptomatic postmenopausal status Pt to report any episodes of pmb or pelvic pain. Advise regular physical activity including weight bearing exercise most days of the week. Reviewed calcium rich foods.HCRA completed and reviewed Next Appt Details 1 Year Reason:- Annual follow up/mammo Provider Name:Meghan Canas, 2021-06-04 10:3 0:00 AM, [address], , [place], [address], Provider Name:Yenifer Washington, 04:00:00 PM, [address] [facility], , [place], [address], Follow Up:1 Year- Annual follow up/mammo Insurance Providers Payer Name Payer Address Payer Phone Insured Name Patient Relati onship to Insured Coverage Start Date Coverage End Date MEDICARE Part A and B [address] [place] [address] EDITH CHAPA BCBS OF [facility] [id number] [facility] [address] LIZETTE CHAPA
--- NOTE | 2021-05-18 14:22 | REP ---
INDICATION: CHEST PAIN. COMPARISON: 05/15/2021 TECHNIQUE: Portable FINDINGS: The technique utilized in obtaining the radiograph has magnified the cardiac silhouette and accentuated the interstitial markings. The superior mediastinal structures are midline. The cardiac silhouette is unremarkable in size, shape, and position. The diaphragmatic surfaces of the lungs are regular, and the costophrenic angles are clear. The pulmonary lee are clear. The imaged osseous structures are intact. IMPRESSION: There is no acute cardiopulmonary disease. <Electronically signed by Charles Frey > 05/18/21 [id number]
[2021-05-18 14:33] LABS: BASO # 0.1 10^3/uL (0.0-0.2); BASO % 0.7 % (0.0-1.0); EOS % 0.4 % (0.0-3.0); HEMATOCRIT 45.4 % (36.0-47.0); HEMOGLOBIN 15.4 g/dl (12.0-15.5); MEAN CORPUSCULAR HEMOGLOBIN 33.1 pg (27.0-33.0); MEAN CORPUSCULAR HGB CONC 33.9 g/dl (32.0-36.5); MEAN CORPUSCULAR VOLUME 97.6 fl (80.0-96.0); MONO # 0.5 10^3/uL (0.0-0.8); NEUTROPHILS # 5.7 10^3/uL (1.5-8.5); NEUTROPHILS % 78.5 % (36.0-66.0); PLATELET COUNT, AUTOMATED 225 10^3/uL (150-450); RED BLOOD COUNT 4.65 10^6/uL (4.00-5.40); WHITE BLOOD COUNT 7.3 10^3/uL (4.0-10.0)
--- OUTSIDE RECORDS SUMMARY | 2021-05-18 14:41 | CCD ---
Author Author [facility] Organization [facility] Address Unknown Phone Unavailable Support Name Relationship Address Phone RETIRED Next Of Kin RE RE, RE RE LIZETTE CHAPA Next Of Kin [address] [place] [address] Lizette Chapa ECON [address] [place] [address] Unavailable Re-disclosure Warning The records that you [...] is protected by Article 27-F of the [facility] Public Health law. If you continue you may have access to information: Regarding HIV / AIDS; Provided by facilities licensed or operated by the [facility] Office of Mental Health; or Provided by the [facility] Office for People With Developmental Disabilities. If such information is present, then the following [facility] mandated warning applies: This information has been [...] law may result in a fine or assisted sentence or both. A general authorization for [...] [facility]) Unknown Female Problem MEDENT ([facility]) Unknown Unknown Problem MEDENT ([facility]) Encounters Encounter Providers Location Date Indications Data Source(s ) Unknown [address] [facility] [address] 05/14/2021 12:00:00 AM EDT eCW1 ([facility]) [place] [address] [facility] [address] 04/27/2021 12:00:00 AM EDT eCW1 ([facility]) [place] [address] [facility] [place] [address] 04/24/2021 12:00:00 AM EDT eCW1 ([facility]) Outpatient [address] [facility] [address] 04/07/2021 12:00:00 AM EDT eCW1 ([facility]) [place] [address] [facility] [place] [address] 03/09/2021 12:00:00 AM EDT eCW1 ([facility]) [place] [address] [facility] [place] [address] 02/25/2021 12:00:00 AM EDT eCW1 ([facility]) Outpatient [address] [facility] [address] 02/12/2021 12:00:00 AM EDT eCW1 ([facility]) [place] [address] [facility] [place] [address] 02/09/2021 12:00:00 AM EDT eCW1 ([facility]) [place] [address] [facility] [place] [address] 02/06/2021 12:00:00 AM EDT eCW1 ([facility]) Unknown [address] [facility] [address] 01/19/2021 12:00:00 AM EDT eCW1 ([facility]) Unknown [address] [facility] [address] 01/19/2021 12:00:00 AM EDT eCW1 ([facility]) Unknown [address] [facility] [address] 01/15/2021 12:00:00 AM EDT eCW1 ([facility]) Unknown [address] [facility] [address] 12/16/2020 12:00:00 AM EDT eCW1 ([facility]) Outpatient [address] [facility] [address] 12/15/2020 12:00:00 AM EDT eCW1 ([facility]) Outpatient [address] [facility] [address] 12/04/2020 12:00:00 AM EDT eCW1 ([facility]) Outpatient [address] [facility] [address] 11/24/2020 12:00:00 AM EDT eCW1 ([facility]) Unknown [address] [facility] [address] 09/29/2020 12:00:00 AM EST eCW1 ([facility]) Outpatient [address] [facility] [address] 05/28/2020 12:00:00 AM EST eCW1 ([facility]) Unknown [address] [facility] [address] 05/28/2020 12:00:00 AM EST eCW1 ([facility]) Unknown [address] [facility] [address] 05/28/2020 12:00:00 AM EST eCW1 ([facility]) [facility] [place] [address] [facility] [address] 05/07/2020 12:00:00 AM EDT eCW1 ([facility]) Immunizations Vaccine Date Status Description Data Source(s) COVID-19 dose #2 given elsewhere Unspecified 12/04/2020 10:3 7:00 AM EDT completed eCW1 ([facility]) COVID-19 dose #1 given elsewhere Unspecified 12/04/2020 10:3 7:00 AM EDT completed eCW1 ([facility]) COVID-19 dose #1 given elsewhere Unspecified 12/04/2020 10:3 7:00 AM EDT completed eCW1 ([facility]) COVID-19 dose #2 given elsewhere Unspecified 12/04/2020 10:3 7:00 AM EDT completed eCW1 ([facility]) COVID-19 dose #2 given elsewhere Unspecified 12/04/2020 10:3 7:00 AM EDT completed eCW1 ([facility]) COVID-19 dose #1 given elsewhere Unspecified 12/04/2020 10:3 7:00 AM EDT completed eCW1 ([facility]) COVID-19 dose #2 given elsewhere Unspecified 12/04/2020 10:3 7:00 AM EDT completed eCW1 ([facility]) COVID-19 dose #1 given elsewhere Unspecified 12/04/2020 10:3 7:00 AM EDT completed eCW1 ([facility]) COVID-19 dose #1 given elsewhere Unspecified 12/04/2020 10:3 7:00 AM EDT completed eCW1 ([facility]) COVID-19 dose #2 given elsewhere Unspecified 12/04/2020 10:3 7:00 AM EDT completed eCW1 ([facility]) COVID-19 dose #1 given elsewhere Unspecified 12/04/2020 10:3 7:00 AM EDT completed eCW1 ([facility]) COVID-19 dose #2 given elsewhere Unspecified 12/04/2020 10:3 7:00 AM EDT completed eCW1 ([facility]) COVID-19 dose #2 given elsewhere Unspecified 12/04/2020 10:3 7:00 AM EDT completed eCW1 ([facility]) COVID-19 dose #1 given elsewhere Unspecified 12/04/2020 10:3 7:00 AM EDT completed eCW1 ([facility]) COVID-19 dose #2 given elsewhere Unspecified 12/04/2020 10:3 7:00 AM EDT completed eCW1 ([facility]) COVID-19 dose #1 given elsewhere Unspecified 12/04/2020 10:3 7:00 AM EDT completed eCW1 ([facility]) COVID-19 dose #2 given elsewhere Unspecified 12/04/2020 10:3 7:00 AM EDT completed eCW1 ([facility]) COVID-19 dose #1 given elsewhere Unspecified 12/04/2020 10:3 7:00 AM EDT completed eCW1 ([facility]) COVID-19 dose #2 given elsewhere Unspecified 12/04/2020 10:3 7:00 AM EDT completed eCW1 ([facility]) COVID-19 dose #1 given elsewhere Unspecified 12/04/2020 10:3 7:00 AM EDT completed eCW1 ([facility]) COVID-19 dose #2 given elsewhere Unspecified 12/04/2020 10:3 7:00 AM EDT completed eCW1 ([facility]) COVID-19 dose #1 given elsewhere Unspecified 12/04/2020 10:3 7:00 AM EDT completed eCW1 ([facility]) COVID-19 dose #2 given elsewhere Unspecified 12/04/2020 10:3 7:00 AM EDT completed eCW1 ([facility]) COVID-19 dose #1 given elsewhere Unspecified 12/04/2020 10:3 7:00 AM EDT completed eCW1 ([facility]) COVID-19 dose #2 given elsewhere Unspecified 12/04/2020 10:3 7:00 AM EDT completed eCW1 ([facility]) COVID-19 dose #1 given elsewhere Unspecified 12/04/2020 10:3 7:00 AM EDT completed eCW1 ([facility]) COVID-19 dose #2 given elsewhere Unspecified 12/04/2020 10:3 7:00 AM EDT completed eCW1 ([facility]) COVID-19 dose #1 given elsewhere Unspecified 12/04/2020 10:3 7:00 AM EDT completed eCW1 ([facility]) COVID-19 dose #2 given elsewhere Unspecified 12/04/2020 10:3 7:00 AM EDT completed eCW1 ([facility]) COVID-19 dose #1 given elsewhere Unspecified 12/04/2020 10:3 7:00 AM EDT completed eCW1 ([facility]) COVID-19 VACCINE Moderna 09/30/2020 12:00:00 AM EST completed [facility] Vaccine Series Complete: YESThis Data wa s Submitted to [facility] [employer]. COVID-19 VACCINE Moderna 08/26/2020 12:00:00 AM EST completed [facility] Vaccine Series Complete: NOThis Data was Submitted to [facility] [employer]. influenza, recombinant, quadrIvalent,injectable, prese rvative free 05/28/2020 02:34:00 PM EST completed eCW1 ([facility]) influenza, recombinant, quadrIvalent,injectable, prese rvative free 05/28/2020 02:34:00 PM EST completed eCW1 ([facility]) influenza, recombinant, quadrIvalent,injectable, prese rvative free 05/28/2020 02:34:00 PM EST completed eCW1 ([facility]) influenza, recombinant, quadrIvalent,injectable, prese rvative free 05/28/2020 02:34:00 PM EST completed eCW1 ([facility]) influenza, recombinant, quadrIvalent,injectable, prese rvative free 05/28/2020 02:34:00 PM EST completed eCW1 ([facility]) influenza, recombinant, quadrIvalent,injectable, prese rvative free 05/28/2020 02:34:00 PM EST completed eCW1 ([facility]) influenza, recombinant, quadrIvalent,injectable, prese rvative free 05/28/2020 02:34:00 PM EST completed eCW1 ([facility]) influenza, recombinant, quadrIvalent,injectable, prese rvative free 05/28/2020 02:34:00 PM EST completed eCW1 ([facility]) influenza, recombinant, quadrIvalent,injectable, prese rvative free 05/28/2020 02:34:00 PM EST completed eCW1 ([facility]) influenza, recombinant, quadrIvalent,injectable, prese rvative free 05/28/2020 02:34:00 PM EST completed eCW1 ([facility]) influenza, recombinant, quadrIvalent,injectable, prese rvative free 05/28/2020 02:34:00 PM EST completed eCW1 ([facility]) influenza, recombinant, quadrIvalent,injectable, prese rvative free 05/28/2020 02:34:00 PM EST completed eCW1 ([facility]) influenza, recombinant, quadrIvalent,injectable, prese rvative free 05/28/2020 02:34:00 PM EST completed eCW1 ([facility]) influenza, recombinant, quadrIvalent,injectable, prese rvative free 05/28/2020 02:34:00 PM EST completed eCW1 ([facility]) influenza, recombinant, quadrIvalent,injectable, prese rvative free 05/28/2020 02:34:00 PM EST completed eCW1 ([facility]) influenza, recombinant, quadrIvalent,injectable, prese rvative free 05/28/2020 02:34:00 PM EST completed eCW1 ([facility]) influenza, recombinant, quadrIvalent,injectable, prese rvative free 05/28/2020 02:34:00 PM EST completed eCW1 ([facility]) influenza, recombinant, quadrIvalent,injectable, prese rvative free 05/28/2020 02:34:00 PM EST completed eCW1 ([facility]) influenza, recombinant, quadrIvalent,injectable, prese rvative free 05/28/2020 02:34:00 PM EST completed eCW1 ([facility]) influenza, recombinant, quadrIvalent,injectable, prese rvative free 05/28/2020 02:34:00 PM EST completed eCW1 ([facility]) Medications Medication Brand Name Start Date Product Form Dose Route Admi nistrative Instructions Pharmacy Instructions Status Indications Reaction Description Data Source(s) Ciprofloxacin 500 MG Oral Tablet Ciprofloxacin HCl 500 MG Ciprofloxacin HCl 500 MG 04/27/2021 12:00:00 AM EDT 1.0 {tablet} activ e Ciprofloxacin HCl 500 MG eCW1 ([facility]) Ciprofloxacin 500 MG Oral Tablet Ciprofloxacin HCl 500 MG Ciprofloxacin HCl 500 MG 04/27/2021 12:00:00 AM EDT 1.0 {tablet} activ e Ciprofloxacin HCl 500 MG eCW1 ([facility]) NITROFURANTOIN, MACROCRYSTALS 25 MG / Ni trofurantoin, Monohydrate 75 MG Oral Capsule [Macrobid] Macrobid 100 MG Macrobid 100 MG 04/24/2021 12:00:00 AM EDT active Macrobid 100 MG eCW1 ([facility]) NITROFURANTOIN, MACROCRYSTALS 25 MG / Ni trofurantoin, Monohydrate 75 MG Oral Capsule [Macrobid] Macrobid 100 MG Macrobid 100 MG 04/24/2021 12:00:00 AM EDT active Macrobid 100 MG eCW1 ([facility]) NITROFURANTOIN, MACROCRYSTALS 25 MG / Ni [...] AM EDT active Macrobid 100 MG eCW1 ([facility]) cetirizine hydrochloride 10 MG Oral Tablet Cetirizine HCl 10 MG Cetirizine HCl 10 MG 05/28/2020 12:00:00 AM EST 1.0 {tablet} suspe nded Cetirizine HCl 10 MG eCW1 ([facility]) Omeprazole 20 MG Delayed Release Oral Capsule Omeprazole 20 MG 05/28/2020 12:00:00 AM EST active Omeprazo le 20 MG eCW1 ([facility]) cetirizine hydrochloride 10 MG Oral Tablet Cetirizine HCl 10 MG Cetirizine HCl 10 MG 05/28/2020 12:00:00 AM EST 1.0 {tablet} suspe nded Cetirizine HCl 10 MG eCW1 ([facility]) cetirizine hydrochloride 10 MG Oral Tablet Cetirizine HCl 10 MG Cetirizine HCl 10 MG 05/28/2020 12:00:00 AM EST 1.0 {tablet} suspe nded Cetirizine HCl 10 MG eCW1 ([facility]) cetirizine hydrochloride 10 MG Oral Tablet Cetirizine HCl 10 MG Cetirizine HCl 10 MG 05/28/2020 12:00:00 AM EST 1.0 {tablet} suspe nded Cetirizine HCl 10 MG eCW1 ([facility]) Omeprazole 20 MG Delayed Release Oral Capsule Omeprazole 20 MG 05/28/2020 12:00:00 AM EST active Omeprazo le 20 MG eCW1 ([facility]) Omeprazole 20 MG Delayed Release Oral Capsule Omeprazole 20 MG 05/28/2020 12:00:00 AM EST active Omeprazo le 20 MG eCW1 ([facility]) cetirizine hydrochloride 10 MG Oral Tablet Cetirizine HCl 10 MG Cetirizine HCl 10 MG 05/28/2020 12:00:00 AM EST 1.0 {tablet} suspe nded Cetirizine HCl 10 MG eCW1 ([facility]) cetirizine hydrochloride 10 MG Oral Tablet Cetirizine HCl 10 MG Cetirizine HCl 10 MG 05/28/2020 12:00:00 AM EST 1.0 {tablet} activ e Cetirizine HCl 10 MG eCW1 ([facility]) Omeprazole 20 MG Delayed Release Oral Capsule Omeprazole 20 MG 05/28/2020 12:00:00 AM EST active Omeprazo le 20 MG eCW1 ([facility]) cetirizine hydrochloride 10 MG Oral Tablet Cetirizine HCl 10 MG Cetirizine HCl 10 MG 05/28/2020 12:00:00 AM EST 1.0 {tablet} suspe nded Cetirizine HCl 10 MG eCW1 ([facility]) cetirizine hydrochloride 10 MG Oral Tablet Cetirizine HCl 10 MG Cetirizine HCl 10 MG 05/28/2020 12:00:00 AM EST 1.0 {tablet} suspe nded Cetirizine HCl 10 MG eCW1 ([facility]) cetirizine hydrochloride 10 MG Oral Tablet Cetirizine HCl 10 MG Cetirizine HCl 10 MG 05/28/2020 12:00:00 AM EST 1.0 {tablet} suspe nded Cetirizine HCl 10 MG eCW1 ([facility]) Omeprazole 20 MG Delayed Release Oral Capsule Omeprazole 20 MG 05/28/2020 12:00:00 AM EST active Omeprazo le 20 MG eCW1 ([facility]) cetirizine hydrochloride 10 MG Oral Tablet Cetirizine HCl 10 MG Cetirizine HCl 10 MG 05/28/2020 12:00:00 AM EST 1.0 {tablet} suspe nded Cetirizine HCl 10 MG eCW1 ([facility]) cetirizine hydrochloride 10 MG Oral Tablet Cetirizine HCl 10 MG Cetirizine HCl 10 MG 05/28/2020 12:00:00 AM EST 1.0 {tablet} suspe nded Cetirizine HCl 10 MG eCW1 ([facility]) cetirizine hydrochloride 10 MG Oral Tablet Cetirizine HCl 10 MG Cetirizine HCl 10 MG 05/28/2020 12:00:00 AM EST 1.0 {tablet} activ e Cetirizine HCl 10 MG eCW1 ([facility]) cetirizine hydrochloride 10 MG Oral Tablet Cetirizine HCl 10 MG Cetirizine HCl 10 MG 05/28/2020 12:00:00 AM EST 1.0 {tablet} suspe nded Cetirizine HCl 10 MG eCW1 ([facility]) cetirizine hydrochloride 10 MG Oral Tablet Cetirizine HCl 10 MG Cetirizine HCl 10 MG 05/28/2020 12:00:00 AM EST 1.0 {tablet} suspe nded Cetirizine HCl 10 MG eCW1 ([facility]) Omeprazole 20 MG Delayed Release Oral Capsule Omeprazole 20 MG 05/28/2020 12:00:00 AM EST active Omeprazo le 20 MG eCW1 ([facility]) Omeprazole 20 MG Delayed Release Oral Capsule Omeprazole 20 MG 05/28/2020 12:00:00 AM EST active Omeprazo le 20 MG eCW1 ([facility]) Omeprazole 20 MG Delayed Release Oral Capsule Omeprazole 20 MG 05/28/2020 12:00:00 AM EST active Omeprazo le 20 MG eCW1 ([facility]) cetirizine hydrochloride 10 MG Oral Tablet Cetirizine HCl 10 MG Cetirizine HCl 10 MG 05/28/2020 12:00:00 AM EST 1.0 {tablet} activ e Cetirizine HCl 10 MG eCW1 ([facility]) Omeprazole 20 MG Delayed Release Oral Capsule Omeprazole 20 MG 05/28/2020 12:00:00 AM EST active Omeprazo le 20 MG eCW1 ([facility]) cetirizine hydrochloride 10 MG Oral Tablet Cetirizine HCl 10 MG Cetirizine HCl 10 MG 05/28/2020 12:00:00 AM EST 1.0 {tablet} suspe nded Cetirizine HCl 10 MG eCW1 ([facility]) cetirizine hydrochloride 10 MG Oral Tablet Cetirizine HCl 10 MG Cetirizine HCl 10 MG 05/28/2020 12:00:00 AM EST 1.0 {tablet} suspe nded Cetirizine HCl 10 MG eCW1 ([facility]) cetirizine hydrochloride 10 MG Oral Tablet Cetirizine HCl 10 MG Cetirizine HCl 10 MG 05/28/2020 12:00:00 AM EST 1.0 {tablet} activ e Cetirizine HCl 10 MG eCW1 ([facility]) Omeprazole 20 MG Delayed Release Oral Capsule Omeprazole 20 MG 05/28/2020 12:00:00 AM EST active Omeprazo le 20 MG eCW1 ([facility]) cetirizine hydrochloride 10 MG Oral Tablet Cetirizine HCl 10 MG Cetirizine HCl 10 MG 05/28/2020 12:00:00 AM EST 1.0 {tablet} suspe nded Cetirizine HCl 10 MG eCW1 ([facility]) cetirizine hydrochloride 10 MG Oral Tablet Cetirizine HCl 10 MG Cetirizine HCl 10 MG 05/28/2020 12:00:00 AM EST 1.0 {tablet} activ e Cetirizine HCl 10 MG eCW1 ([facility]) Insurance Providers Payer name Policy type / Coverage type Policy ID Covered alliance party ID Covered alliance party's relationship to mann Policy Mann Plan Information [place] 302/307 [id number] 2 [id number] [place] 305/805 [id number] 2 [id number] [place] 305/805 [id number] HU2 [id number] [place] 305/805 [id number] 2 [id number] MEDICARE [id number] SP [id number] A [place] 305/805 [id number] SP [id number] BS [place] Medigap Part B [id number] Self MEDICARE [id number] SP [id number] A MEDICARE [id number] SP [id number] [place] Primary [id number] Self BS [place] Medigap Part B [id number] [place] Medicare Primary [id number] Self BS [place] Medigap Part B [id number] Self 302/802 [place] 302/307 [id number] 2 [id number] ANSI-Medicare Part B [id number] ANSI-Medicare Part B [id number] ANSI-Commercial [id number] ANSI-Commercial [id number] ANS-Medicare Part B [id number] MEDICARE [id number] A [place] 306/806 [id number] 2 [id number] MEDICARE [id number] [place] 306/806 [id number] 2 [id number] [facility] BCBS [facility] Part B [id number] Family Dependent [id number] [place] Medicare Primary [id number] ..[id number] [facility] [id number] BS Of [place] [facility] Part B [id number] Family Dependent [id number] [place] Primary [id number] ..[id number] Self [id number] [place] 302/307 [id number] HU2 [id number] [place] BS Medigap Part B [id number] Family Dependent [id number] [place]/[facility] Medicare Primary [id number] Self [id number] Excell[facility] Medigap Part B [id number] ..[id number] Family Dependent [id number] [place] Primary [id number] Self [id number] EXCELLUS [facility] B [id number] S VYW MEDICARE C [id number] S [id number] A BCBS [facility] Ppo U/W Medigap Part B [id number] Family Dependent V [id number] Medicare (Part B) Medicare Primary [id number] Self 0 [id number] Excell[facility] Medigap Part B [id number] ..[id number] Family Dependent [id number] [place] Medicare Primary [id number] Self [id number] BCBS [place] Ppo U/W Medigap Part B [id number] Family Dependent V [id number] Medicare (Part B) Medicare Primary [id number] Self 0 [id number] [facility] BCBS Medigap Part B [id number] Family Dependent [id number] [place]/[facility] Medicare Primary [id number] Self [id number] BCBS/[place] Medigap Part B [id number] Family Dependent [id number] Medicare Natl Gov't Servi Medicare Primary [id number] Self [id number] EX[facility] BCBS B [id number] S VYW [id number] [place] 302/307 [id number] SP [id number] SELF PAY UNAVAILABLE SP UNAVAILA BLE BCBS EMPIRE [place] DIV UNAVAILABLE UNAVAILABLE BS/W/Id#Prefix/W ALL #'S [facility] Part B [id number] Family Dep endent Medicare Natl Gov't Servi Medicare Primary [id number] Self [place] P[place] 302/307 [id number] SP [id number] BC[place] P[place] 302/307 [id number] SP [id number] BCBS [place] 304/804 [id number] SP [id number] MEDICARE - [place] MCR [id number] S [id number] [place]ICARE [place] MCR UNAVAILABLE UNAVAILABLE [place] PPO 302/307 [id number] HU2 [id number] MEDICARE [id number] SP [id number] [place] 306/806 [id number] HU2 [id number] [place] 306/806 [id number] 2 [id number] MEDICARE [id number] SP [id number] BCBS [place] U/W [facility] Part B [id number] Family Dependent [id number] Medicare (Part B) Medicare Primary [id number] Self [id number] BCBS [facility] U/W [facility] Part B [id number] Family Dependent [id number] Medicare (Part B) Medicare Primary [id number] Self [id number] ANSI-Commercial [id number] ANSI-Medicare Part B [id number] ANSI-Commercial [id number] ANSI-Medicare Part B [id number] ANSI-Commercial [id number] Problems, Conditions, and Diagnoses Code Display Name Description Problem Type Effective Dates Data Source(s) N39.0 Urinary tract infectious disease UTI (urinary tract in fection) Problem 04/27/2021 12:00:00 AM EDT eCW1 ([facility]) Z85.828 [id number] History of basal cell carcinoma Problem 02/12/2021 12:00:00 AM EDT eCW1 ([facility]) N95.2 [id number] Vaginal atrophy Problem 12/15/2020 12:00:00 AM EDT [facility] [place]) R80.9 [id number] Microalbuminuria Problem 12/04/2020 12:00:00 AM EDT eCW1 ([facility]) Surgeries/Procedures No Information Results ID Date Data Source WWBC DIGITAL / ELIZABETH BILATERAL MAMMO SCREENING (Ultraso und if indicated) 04/07/2021 12:00:00 AM EDT eCW1 ([facility]) Name Value Range Interpretation Code Description Data Jocelyn rce(s) Supporting Document(s) WWBC DIGITAL / ELIZABETH BILAT ERAL MAMMO SCREENING (Ultrasound if indicated) eCW1 ([facility]) ID Date Data Source [id number] 11/24/2020 12:00:00 AM EDT eCW1 ([facility]) Name Value Range Interpretation Code Description Data Jocelyn rce(s) Supporting Document(s) Microalbumin/Creatinine [Mass Ratio] in Urine 119.0 CREATININE, URINE eCW1 ([facility]) Microalbumin/Creatinine [Ratio] in Urine 38.1 0.0-30.0 ANDREY/CREAT RATIO eCW1 ([facility]) Albumin/Creatinine [Mass Ratio] in Urine 45.4 MALB URINE SIEMENS eCW1 ([facility]) ID Date Data Source LIPID PANEL (CARDIAC RISK) 11/24/2020 12:00:00 AM EDT eCW1 ( [facility]) Name Value Range Interpretation Code Description Data Jocelyn rce(s) Supporting Document(s) Cholesterol [Moles/volume] in Serum or Plasma 220 <200 CHOLESTEROL LEVEL eCW1 ([facility]) Triglyceride [Mass/volume] in Serum or Plasma by calculation 91 <150 TRIGLYCERIDES LEVEL eCW1 ([facility]) Cholesterol in HDL [Moles/volume] in Serum or Plasma 90 >40 HDL CHOLESTEROL eCW1 ([facility]) Cholesterol in LDL [Mass/volume] in Serum or Plasma by calculation 112 <100 LDL CHOLESTEROL eCW1 ([facility]) 130 NON-HDL-C eCW1 ([facility]) 2.444 <5 CHOLESTEROL RISK RATIO eCW1 ([facility]) ID Date Data Source Comprehensive Metabolic Profile (CMP) 11/24/2020 12:00:00 AM EDT eCW1 ([facility]) Name Value Range Interpretation Code Description Data Jocelyn rce(s) Supporting Document(s) 19 7-18 BLOOD UREA NITROGEN eCW1 ([facility]) 92 70-100 GLUCOSE, FASTING eCW1 ([facility]) 0.70 0.55-1.30 CREATININE FOR GFR eCW1 ([facility]) 141 136-145 SODIUM LEVEL eCW1 ([facility]) > 60.0 >39 GLOMERULAR FILTRATION RATE eCW 1 ([facility]) 4.2 3.5-5.1 POTASSIUM SERUM eCW1 ([facility]) 104 98-107 CHLORIDE LEVEL eCW1 ([facility]) 31 21-32 CARBON DIOXIDE LEVEL eCW1 ([facility], 1928–1983) 9.5 8.8-10.2 CALCIUM LEVEL eCW1 ([facility]) 18 7-37 AST/SGOT eCW1 ([facility]) 23 12-78 ALT/SGPT eCW1 ([facility]) 81 45-117 ALKALINE PHOSPHATASE eCW1 ([facility], 1928–1983) 0.8 0.2-1.0 BILIRUBIN,TOTAL eCW1 ([facility]) 6.3 6.4-8.2 TOTAL PROTEIN eCW1 ([facility]) 1.4 1.2-2.2 ALBUMIN/GLOBULIN RATIO eCW1 ([facility]) 3.7 3.2-5.2 ALBUMIN eCW1 ([facility]) ID Date Data Source URINE CULTURE 09/29/2020 12:00:00 AM EST eCW1 ([facility]) Name Value Range Interpretation Code Description Data Jocelyn rce(s) Supporting Document(s) URINE CULTURE eCW1 ([facility]) ID Date Data Source UA URINALYSIS 09/29/2020 12:00:00 AM EST eCW1 ([facility]) Name Value Range Interpretation Code Description Data Jocelyn rce(s) Supporting Document(s) Laboratory studies (set) UA URINALYS IS eCW1 ([facility]) ID Date Data Source Basic Metabolic Profile (BMP) 05/29/2020 08:47:25 AM EST eCW 1 ([facility]) Name Value Range Interpretation Code Description Data Jocelyn rce(s) Supporting Document(s) 89 GLUCOSE, FASTING eCW1 ([facility]) 18 BLOOD UREA NITROGEN eCW1 ([facility]) 140 SODIUM LEVEL eCW1 ([facility]) 0.79 CREATININE FOR GFR eCW1 ([facility]) > 60.0 GLOMERULAR FILTRATION RATE eCW 1 ([facility]) 10.1 CALCIUM LEVEL eCW1 ([facility]) 103 CHLORIDE LEVEL eCW1 ([facility]) 29 CARBON DIOXIDE LEVEL eCW1 ([facility], 1928–1983) 3.5 POTASSIUM SERUM eCW1 ([facility]) Procedure Social History Code Duration Value Status Description Data Source(s ) Smoking 05/15/2021 12:00:00 AM EDT Never Smoker completed Never S moker eCW1 ([facility]) Smoking 04/07/2021 12:00:00 AM EDT Never Smoker completed Never S moker eCW1 ([facility]) Smoking 04/07/2021 12:00:00 AM EDT Never Smoker completed Never S moker eCW1 ([facility]) Smoking 04/07/2021 12:00:00 AM EDT Never Smoker completed Never S moker eCW1 ([facility]) Smoking 02/12/2021 12:00:00 AM EDT Never Smoker completed Never S moker eCW1 ([facility]) Smoking 02/12/2021 12:00:00 AM EDT Never Smoker completed Never S moker eCW1 ([facility]) Smoking 02/12/2021 12:00:00 AM EDT Never Smoker completed Never S moker eCW1 ([facility]) Smoking 02/12/2021 12:00:00 AM EDT Never Smoker completed Never S moker eCW1 ([facility]) Smoking 12/15/2020 12:00:00 AM EDT Never Smoker completed Never S moker eCW1 ([facility]) Smoking 12/15/2020 12:00:00 AM EDT Never Smoker completed Never S moker eCW1 ([facility]) Smoking 12/15/2020 12:00:00 AM EDT Never Smoker completed Never S moker eCW1 ([facility]) Smoking 12/15/2020 12:00:00 AM EDT Never Smoker completed Never S moker eCW1 ([facility]) Smoking 12/15/2020 12:00:00 AM EDT Never Smoker completed Never S moker eCW1 ([facility]) Smoking 12/15/2020 12:00:00 AM EDT Never Smoker completed Never S moker eCW1 ([facility]) Smoking 12/04/2020 12:00:00 AM EDT Former Smoker completed Former Smoker eCW1 ([facility]) Smoking 05/28/2020 12:00:00 AM EST Former Smoker completed Former Smoker eCW1 ([facility]) Smoking 05/28/2020 12:00:00 AM EST Former Smoker completed Former Smoker eCW1 ([facility]) Smoking 05/28/2020 12:00:00 AM EST Former Smoker completed Former Smoker eCW1 ([facility]) Smoking 05/28/2020 12:00:00 AM EST Former Smoker completed Former Smoker eCW1 ([facility]) Smoking 05/28/2020 12:00:00 AM EST Former Smoker completed Former Smoker eCW1 ([facility]) Vital Signs ID Date Data Source UNK Name Value Range Interpretation Code Description Data Source(s) Body weight 163 [lb_av] 163 [lb_av] eCW1 ([facility]) Body height 65.5 [in_i] 65.5 [in_i] eCW1 ([facility]) Body mass index (BMI) [Ratio] 26.71 kg/m2 26.71 kg/m2 eCW1 ([facility]) Systolic blood pressure 102 mm[Hg] 102 mm[Hg] e CW1 ([facility]) Diastolic blood pressure 64 mm[Hg] 64 mm[Hg] eCW1 ([facility]) Body weight 163 [lb_av] 163 [lb_av] eCW1 ([facility]) Body height 65.5 [in_i] 65.5 [in_i] eCW1 ([facility]) Body mass index (BMI) [Ratio] 26.71 kg/m2 26.71 kg/m2 eCW1 ([facility]) Heart rate 91 /min 91 /min eCW1 ([facility]) Respiratory rate 18 /min 18 /min eCW1 ([facility]) Body temperature 96 [degF] 96 [degF] eCW1 ([facility]) Systolic blood pressure 126 mm[Hg] 126 mm[Hg] e CW1 ([facility]) Diastolic blood pressure 76 mm[Hg] 76 mm[Hg] eCW1 ([facility]) Body weight 162 [lb_av] 162 [lb_av] eCW1 ([facility]) Body weight 73.48 kg 73.48 kg eCW1 ([facility]) Body height 65.5 [in_i] 65.5 [in_i] eCW1 ([facility]) Body mass index (BMI) [Ratio] 26.55 kg/m2 26.55 kg/m2 eCW1 ([facility]) Systolic blood pressure 120 mm[Hg] 120 mm[Hg] e CW1 ([facility]) Diastolic blood pressure 74 mm[Hg] 74 mm[Hg] eCW1 ([facility]) Body weight 163 [lb_av] 163 [lb_av] eCW1 ([facility]) Body height 65.5 [in_i] 65.5 [in_i] eCW1 ([facility]) Body mass index (BMI) [Ratio] 26.71 kg/m2 26.71 kg/m2 eCW1 ([facility]) Heart rate 82 /min 82 /min eCW1 ([facility]) Respiratory rate 18 /min 18 /min eCW1 ([facility]) Body temperature 97 [degF] 97 [degF] eCW1 ([facility]) Systolic blood pressure 120 mm[Hg] 120 mm[Hg] e CW1 ([facility]) Diastolic blood pressure 80 mm[Hg] 80 mm[Hg] eCW1 ([facility]) Body weight 159 [lb_av] 159 [lb_av] eCW1 ([facility]) Body height 65.5 [in_i] 65.5 [in_i] eCW1 ([facility]) Body mass index (BMI) [Ratio] 26.05 kg/m2 26.05 kg/m2 eCW1 ([facility]) Heart rate 96 /min 96 /min eCW1 ([facility]) Respiratory rate 18 /min 18 /min eCW1 ([facility]) Body temperature 96.7 [degF] 96.7 [degF] eCW1 ( [facility]) Systolic blood pressure 134 mm[Hg] 134 mm[Hg] e CW1 ([facility]) Diastolic blood pressure 90 mm[Hg] 90 mm[Hg] eCW1 ([facility]) Patient Treatment Plan of Care Planned Activity Planned Date Details Description Data Source (s) Ciprofloxacin 500 MG Oral Tablet 04/27/2021 12:00:00 AM EDT eCW1 ([facility]) NITROFURANTOIN, MACROCRYSTALS 25 MG / Ni trofurantoin, Monohydrate 75 MG Oral Capsule [Macrobid] 04/24/2021 12:00:00 AM EDT eC W1 ([facility]) NITROFURANTOIN, MACROCRYSTALS 25 MG / Ni trofurantoin, Monohydrate 75 MG Oral Capsule [Macrobid] 04/24/2021 12:00:00 AM EDT eC W1 ([facility]) Omeprazole 20 MG Delayed Release Oral Capsule 05/28/2020 12:00:00 A M EST eCW1 ([facility]) Omeprazole 20 MG Delayed Release Oral Capsule 05/28/2020 12:00:00 A M EST eCW1 ([facility]) Omeprazole 20 MG Delayed Release Oral Capsule 05/28/2020 12:00:00 A M EST eCW1 ([facility]) cetirizine hydrochloride 10 MG Oral Tablet 05/28/2020 12:00:[address] eCW1 ([facility]) Omeprazole 20 MG Delayed Release Oral Capsule 05/28/2020 12:00:00 A M EST eCW1 ([facility]) cetirizine hydrochloride 10 MG Oral Tablet 05/28/2020 12:00:[address] eCW1 ([facility]) Omeprazole 20 MG Delayed Release Oral Capsule 05/28/2020 12:00:00 A M EST eCW1 ([facility]) cetirizine hydrochloride 10 MG Oral Tablet 05/28/2020 12:00:[address] eCW1 ([facility]) Omeprazole 20 MG Delayed Release Oral Capsule 05/28/2020 12:00:00 A M EST eCW1 ([facility]) cetirizine hydrochloride 10 MG Oral Tablet 05/28/2020 12:00:[address] eCW1 ([facility]) Omeprazole 20 MG Delayed Release Oral Capsule 05/28/2020 12:00:00 A M EST eCW1 ([facility]) cetirizine hydrochloride 10 MG Oral Tablet 05/28/2020 12:00:[address] eCW1 ([facility]) Omeprazole 20 MG Delayed Release Oral Capsule 05/28/2020 12:00:00 A M EST eCW1 ([facility])
[2021-05-18 16:28] LABS: ALBUMIN 3.8 GM/DL (3.2-5.2); ALT/SGPT 20 U/L (12-78); BILIRUBIN,DIRECT 0.1 MG/DL (0.0-0.2); BILIRUBIN,TOTAL 0.4 MG/DL (0.2-1.0); BLOOD UREA NITROGEN 18 MG/DL (7-18); CALCIUM LEVEL 10.3 MG/DL (8.8-10.2); CARBON DIOXIDE LEVEL 27 MEQ/L (21-32); CHLORIDE LEVEL 104 MEQ/L (98-107); GLOMERULAR FILTRATION RATE > 60.0 (>39); GLUCOSE, FASTING 93 MG/DL (70-100); LIPASE 132 U/L (73-393); NT-PRO BNP 86 PG/ML (<125); POTASSIUM SERUM 3.6 MEQ/L (3.5-5.1); SODIUM LEVEL 141 MEQ/L (136-145); TOTAL PROTEIN 6.2 GM/DL (6.4-8.2)
[2021-05-18 16:30] VITALS: BP 115/62
[2021-05-18] MEDS ORDERED: ISOVUE-370 76% 100ML VIAL As Ordered ONE (16:55)
--- NOTE | 2021-05-18 17:46 | REPVR ---
PROCEDURE INFORMATION: Exam: CTA Chest With Contrast Exam date and time: 05/18/2021 4:41 PM Age: 76 years old Clinical indication: Other: Chest pain; Additional info: Cp TECHNIQUE: Imaging protocol: Computed tomographic angiography of the chest with contrast. 3D rendering (Not supervised by radiologist): MIP and/or 3D reconstructed images were created by the technologist. Radiation optimization: All CT scans at this facility use at least one of these dose optimization techniques: automated exposure control; mA and/or kV adjustment per patient size (includes targeted exams where dose is matched to clinical indication); or iterative reconstruction. Contrast material: ISOVUE 370; Contrast volume: 75 ml; Contrast route: INTRAVENOUS (IV); COMPARISON: CR PORTABLE CHEST X-RAY 05/18/2021 1:56 PM FINDINGS: Pulmonary arteries: No focal pulmonary artery filling defect to suggest acute pulmonary embolus. Pulmonary vascular/interstitial pattern does not suggest active pulmonary edema. Aorta: No thoracic aortic aneurysm or dissection. Lungs: No suspicious lung mass or air space process. No central endobronchial lesion. Pleural spaces: No pleural effusion or pneumothorax. Heart: No overt cardiac enlargement or abnormal volume of pericardial fluid. Lymph nodes: No enlarged mediastinal lymph nodes. Liver: Low-density 4 cm hepatic dome lesion consistent with a hemangioma is present, unchanged since September 2016. Small hepatic benign cysts are also present Bones/joints: Bony structures show no acute fracture or destructive process. Other findings: No concerning asymmetry or abnormality at the GE junction. IMPRESSION: 1. No evidence of acute pulmonary embolus. 2. No other acute or concerning focal intrathoracic abnormality. Electronically signed by: Alex Irvin On 05/18/2021 17:46:09 PM
--- NOTE | 2021-05-18 18:29 | ECGEPIP ---
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
--- NOTE | 2021-05-18 18:33 | ECGEPIP ---
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
== END 2021-05-18 18:29 | disposition home or self-care (01) ==
LOC: M ED 13:29
DX: R07.81 Pleurodynia (principal); I10 Essential (primary) hypertension; E78.9 Disorder of lipoprotein metabolism, unspecified; G47.33 Obstructive sleep apnea (adult) (pediatric); Z88.1 Allergy status to other antibiotic agents; Z88.2 Allergy status to sulfonamides; Z88.0 Allergy status to penicillin; Z98.890 Other specified postprocedural states; Z82.49 Family history of ischemic heart disease and other diseases of the circulatory system
CPT/HCPCS: 71045; 71275; 80048; 80076; 83690; 83880; 84443; 84484; 85025; 93005; 93041; 94760; 99285; Q9967

== ENCOUNTER → 2021-05-21 | Outpatient (CLI) | payer MEDICARE, BC ==
--- NOTE | 2021-05-21 16:51 | REP ---
INDICATION: MID BACK PAIN RT SIDE. COMPARISON: None. TECHNIQUE: Real-time sonographic evaluation of the kidneys with Doppler FINDINGS: Multiple ultrasonographic images of the right kidney show the right kidney to measure 9.3 x 4.3 x 4.3 cm.. The renal cortical echotexture is unremarkable. There are no masses. There is good corticomedullary differentiation. There is no hydronephrosis. There are no perinephric fluid collections. There is an incidental 6 mm sized cyst in the superior pole. Multiple ultrasonographic images of the left kidney show the left kidney to measure 9.4 x 6.2 x 5.3 cm. The renal cortical echotexture is unremarkable. There are no masses. There is good corticomedullary differentiation. There is mild hydronephrosis. There are peripelvic cysts. There are no perinephric fluid collections. Doppler of the urinary bladder UV junction shows uro jet phenomena bilaterally. IMPRESSION: 1. Bilateral renal cysts. 2. Possible mild left hydronephrosis <Electronically signed by Charles Frey > 05/21/21 [id number]
== END ==
LOC: M RAD 10:59
PROVIDERS: ATTEND Nurse Practitioner Family
DX: M54.9 Dorsalgia, unspecified (principal)

== ENCOUNTER → 2021-06-01 | Outpatient (CLI) | payer MEDICARE, BC ==
[2021-06-01 16:10] LABS: BLOOD UREA NITROGEN 25 MG/DL (7-18); CALCIUM LEVEL 10.3 MG/DL (8.8-10.2); CARBON DIOXIDE LEVEL 33 MEQ/L (21-32); CHLORIDE LEVEL 101 MEQ/L (98-107); CREATININE FOR GFR 0.85 MG/DL (0.55-1.30); GLOMERULAR FILTRATION RATE > 60.0 (>39); GLUCOSE, FASTING 76 MG/DL (70-100); POTASSIUM SERUM 4.5 MEQ/L (3.5-5.1); PTH INTACT 34.2 PG/ML (18.5-88.0); SODIUM LEVEL 140 MEQ/L (136-145)
== END ==
LOC: M PLALAB 12:19
PROVIDERS: ATTEND Family Medicine
DX: E83.52 Hypercalcemia (principal)
CPT/HCPCS: 36415; 80048; 82306; 83970; G0463

== ENCOUNTER → 2021-06-15 | Outpatient (CLI) | payer MEDICARE, BC ==
[~2021-06-15] MED LIST changes: +ISOVUE-370 76% 100ML VIAL ONE
--- NOTE | 2021-06-15 14:32 | REP ---
INDICATION: HYDRONEPHROSIS. COMPARISON: None TECHNIQUE: Axial precontrast, contrast-enhanced and delayed images from the lung bases to the pubic symphysis using 100 cc Isovue 370 intravenous contrast material. Coronal and sagittal reformations obtained. Volume rendered 3D CT urogram created from initial data. This CT examination was performed using the following dose reduction techniques: Automated exposure control, adjustment of mA and/or kv according to the patient's size, and the use of iterative reconstruction technique. FINDINGS: Liver demonstrates 4.5 cm cavernous hemangioma at the dome. Spleen, pancreas, gallbladder, and bilateral adrenal glands are normal. Right kidney includes 2 mm nonobstructing nephroliths and 3 subcentimeter hypodensities compatible with benign cysts. No perinephric stranding, hydroureteronephrosis, or renal mass lesion. Left kidney demonstrates multiple simple peripelvic cysts. No nephrolithiasis, perinephric stranding, hydroureteronephrosis or renal mass lesion. CT urogram is essentially normal. The enteric system including stomach, small, and large bowel appears normal. No evidence for obstruction or acute inflammatory process. Normal terminal ileum and appendix are identified in the right lower quadrant. Colonic/sigmoid diverticulosis noted without acute diverticulitis. Pelvis demonstrates normal bladder and age-appropriate uterus/adnexa. No ascites. No free air. No intraperitoneal or retroperitoneal adenopathy. Abdominal aorta and vasculature appear normal. Musculoskeletal structures are intact and without acute osseous abnormality. IMPRESSION: 1. No acute abdominopelvic pathology appreciated. 2. Kidneys demonstrate chronic benign findings as noted above including cysts (left greater than right) and small nonobstructing right nephroliths. 3. Diverticulosis without acute diverticulitis. 4. Benign cavernous hemangioma. <Electronically signed by Sandip Vargas > 06/15/21 [id number]
== END ==
LOC: M PLAIMG 12:54
PROVIDERS: ATTEND Nurse Practitioner Women's Health
DX: N13.30 Unspecified hydronephrosis (principal); N28.1 Cyst of kidney, acquired
CPT/HCPCS: 74178; Q9967

== ENCOUNTER → 2021-07-09 | Outpatient (REF) | payer MEDICARE, BC ==
[~2021-07-09] MED LIST changes: -ISOVUE-370 76% 100ML VIAL ONE
[2021-07-09 16:30] LABS: BLOOD UREA NITROGEN 18 MG/DL (7-18); CALCIUM LEVEL 9.4 MG/DL (8.8-10.2); CARBON DIOXIDE LEVEL 33 MEQ/L (21-32); CHLORIDE LEVEL 104 MEQ/L (98-107); CREATININE FOR GFR 0.86 MG/DL (0.55-1.30); GLOMERULAR FILTRATION RATE > 60.0 (>39); GLUCOSE, FASTING 90 MG/DL (70-100); MAGNESIUM LEVEL 1.8 MG/DL (1.8-2.4); POTASSIUM SERUM 3.8 MEQ/L (3.5-5.1); SODIUM LEVEL 142 MEQ/L (136-145)
== END ==
LOC: M LABDRWCV 15:30
PROVIDERS: ATTEND Physician Assistant
DX: R94.31 Abnormal electrocardiogram [ECG] [EKG] (principal)

== ENCOUNTER → 2021-10-22 | Outpatient (REF) | payer MEDICARE, BC ==
[2021-10-22 16:53] LABS: ALBUMIN 3.5 GM/DL (3.2-5.2); ALT/SGPT 18 U/L (12-78); BILIRUBIN,TOTAL 0.5 MG/DL (0.2-1.0); BLOOD UREA NITROGEN 21 MG/DL (7-18); CALCIUM LEVEL 9.1 MG/DL (8.8-10.2); CARBON DIOXIDE LEVEL 33 MEQ/L (21-32); CHLORIDE LEVEL 105 MEQ/L (98-107); CHOLESTEROL LEVEL 187 MG/DL (<200); CREATININE FOR GFR 0.74 MG/DL (0.55-1.30); GLOMERULAR FILTRATION RATE > 60.0 (>39); GLUCOSE, FASTING 94 MG/DL (70-100); HDL CHOLESTEROL 68 MG/DL (>40); LDL CHOLESTEROL 101 MG/DL (<100); NON-HDL-C 119 MG/DL; POTASSIUM SERUM 4.2 MEQ/L (3.5-5.1); SODIUM LEVEL 141 MEQ/L (136-145); TRIGLYCERIDES LEVEL 90 MG/DL (<150)
[2021-10-22 16:56] LABS: CREATININE, URINE 65.1 MG/DL; MALB URINE SIEMENS < 5.0 MG/L; MAU/CREAT RATIO 7.6 MCG/MG (0.0-30.0)
== END ==
LOC: M SFHCCAPE 08:19
PROVIDERS: ATTEND Internal Medicine Hematology
DX: E78.2 Mixed hyperlipidemia (principal); I10 Essential (primary) hypertension; N13.30 Unspecified hydronephrosis

== ENCOUNTER → 2021-12-10 | Outpatient (REF) | payer MEDICARE, BC | LOC: M SFHCDERM 18:36 | PROVIDERS: ATTEND Physician Assistant | DX: L82.1 Other seborrheic keratosis (principal); L57.8 Other skin changes due to chronic exposure to nonionizing radiation | CPT/HCPCS: 11102; 17110; 88305; G0463 ==

== ENCOUNTER → 2022-04-12 | Outpatient (REF) | payer MEDICARE, BC ==
[2022-04-12 18:20] LABS: ALBUMIN 3.7 GM/DL (3.2-5.2); ALT/SGPT 24 U/L (12-78); BILIRUBIN,TOTAL 0.5 MG/DL (0.2-1.0); BLOOD UREA NITROGEN 24 MG/DL (7-18); CALCIUM LEVEL 9.5 MG/DL (8.8-10.2); CARBON DIOXIDE LEVEL 30 MEQ/L (21-32); CHLORIDE LEVEL 106 MEQ/L (98-107); CREATININE FOR GFR 0.76 MG/DL (0.55-1.30); GLOMERULAR FILTRATION RATE > 60.0 (>39); GLUCOSE, FASTING 85 MG/DL (70-100); SODIUM LEVEL 141 MEQ/L (136-145); TOTAL PROTEIN 6.1 GM/DL (6.4-8.2)
== END ==
LOC: M SFHCPLAZ 09:47
PROVIDERS: ATTEND Internal Medicine Hematology
DX: E87.6 Hypokalemia (principal)

== ENCOUNTER → 2022-07-07 | Outpatient (REF) | payer MEDICARE, BC ==
[2022-07-07 18:20] LABS: HEMATOCRIT 42.8 % (36.0-47.0); HEMOGLOBIN 14.1 g/dl (12.0-15.5); MEAN CORPUSCULAR HEMOGLOBIN 32.7 pg (27.0-33.0); MEAN CORPUSCULAR HGB CONC 32.9 g/dl (32.0-36.5); MEAN CORPUSCULAR VOLUME 99.3 fl (80.0-96.0); PLATELET COUNT, AUTOMATED 245 10^3/uL (150-450); RED BLOOD COUNT 4.31 10^6/uL (4.00-5.40); WHITE BLOOD COUNT 4.2 10^3/uL (4.0-10.0)
[2022-07-07 18:21] LABS: C REACTIVE PROTEIN QUANTITATIV < 0.40 MG/DL (<1.0)
[2022-07-07 18:23] LABS: ALBUMIN 3.4 G/DL (3.2-5.2); ALKALINE PHOSPHATASE 85 U/L (46-116); ALT/SGPT 14 U/L (7.0-40); AST/SGOT 18 U/L (<34); BILIRUBIN,TOTAL 0.4 MG/DL (0.3-1.2); BLOOD UREA NITROGEN 20 MG/DL (9-23); CALCIUM LEVEL 8.9 MG/DL (8.3-10.6); CARBON DIOXIDE LEVEL 31 MMOL/L (20-31); CHLORIDE LEVEL 104 MMOL/L (98-107); CHOLESTEROL LEVEL 178 MG/DL (<200); CREATININE FOR GFR 0.76 MG/DL (0.55-1.30); GLOMERULAR FILTRATION RATE > 60.0 (>39); GLUCOSE, FASTING 87 MG/DL (74-106); NON-HDL-C 107 MG/DL; SODIUM LEVEL 140 MMOL/L (136-145); TRIGLYCERIDES LEVEL 70 MG/DL (<150)
[2022-07-07 18:24] LABS: FREE T4 1.02 NG/DL (0.89-1.76); THYROID STIMULATING HORMONE 1.567 uIU/ML (0.55-4.78); TOTAL 25(OH) VITAMIN D 38.2 NG/ML (20.0-100.0)
[2022-07-07 18:25] LABS: VITAMIN B12 LEVEL 308 PG/ML (211-911)
[2022-07-07 18:34] LABS: CREATININE, URINE 113.4 MG/DL
[2022-07-07 19:03] LABS: MAU/CREAT RATIO 10.5 MCG/MG (0.0-30.0)
[2022-07-07 19:10] LABS: HEMOGLOBIN A1c 5.1 % (4.0-6.0)
== END ==
LOC: M SFHCPLAZ 08:30
PROVIDERS: ATTEND Internal Medicine Hematology
DX: E78.2 Mixed hyperlipidemia (principal); Z79.899 Other long term (current) drug therapy

== ENCOUNTER → 2022-10-19 | Outpatient (CLI) | payer MEDICARE, BC | LOC: M WHC 13:30 | PROVIDERS: ATTEND Obstetrics & Gynecology | DX: Z12.31 Encounter for screening mammogram for malignant neoplasm of breast (principal) ==

== ENCOUNTER → 2022-10-19 | Outpatient (CLI) | payer MEDICARE, BC | LOC: M WHC 14:15 | PROVIDERS: ATTEND Internal Medicine Hematology | DX: M85.88 Other specified disorders of bone density and structure, other site (principal); M85.851 Other specified disorders of bone density and structure, right thigh; M85.852 Other specified disorders of bone density and structure, left thigh ==

== ENCOUNTER → 2023-01-06 | Outpatient (CLI) | payer MEDICARE, BC ==
[~2023-01-06] MED LIST changes: +CALC600C3 PO; +JUBL1SOL TOP; +MELO7.5T35 PO; +OMEP-173 PO
[2023-01-06 15:25] LABS: HEMATOCRIT 42.5 % (36.0-47.0); HEMOGLOBIN 13.9 g/dl (12.0-15.5); MEAN CORPUSCULAR HEMOGLOBIN 32.9 pg (27.0-33.0); MEAN CORPUSCULAR HGB CONC 32.7 g/dl (32.0-36.5); MEAN CORPUSCULAR VOLUME 100.5 fl (80.0-96.0); PLATELET COUNT, AUTOMATED 251 10^3/uL (150-450); RED BLOOD COUNT 4.23 10^6/uL (4.00-5.40); WHITE BLOOD COUNT 4.5 10^3/uL (4.0-10.0)
[2023-01-06 15:57] LABS: C REACTIVE PROTEIN QUANTITATIV < 0.40 MG/DL (<1.0)
[2023-01-06 15:59] LABS: ALBUMIN 3.7 G/DL (3.2-5.2); ALKALINE PHOSPHATASE 91 U/L (46-116); ALT/SGPT 14 U/L (7.0-40); AST/SGOT 12 U/L (<34); BILIRUBIN,TOTAL 0.6 MG/DL (0.3-1.2); BLOOD UREA NITROGEN 17 MG/DL (9-23); CALCIUM LEVEL 10.1 MG/DL (8.3-10.6); CARBON DIOXIDE LEVEL 31 MMOL/L (20-31); CHLORIDE LEVEL 103 MMOL/L (98-107); CHOLESTEROL LEVEL 182 MG/DL (<200); CHOLESTEROL RISK RATIO 2.58 (<5); CREATININE FOR GFR 0.74 MG/DL (0.55-1.30); FREE T4 1.02 NG/DL (0.89-1.76); GLOMERULAR FILTRATION RATE > 60.0 (>39); GLUCOSE, FASTING 85 MG/DL (74-106); HDL CHOLESTEROL 70.3 MG/DL (>40); LDL CHOLESTEROL 93.9 MG/DL (<100); NON-HDL-C 111.7 MG/DL; SODIUM LEVEL 140 MMOL/L (136-145); THYROID STIMULATING HORMONE 1.988 uIU/ML (0.55-4.78); TOTAL PROTEIN 6.1 G/DL (5.7-8.2); TRIGLYCERIDES LEVEL 89 MG/DL (<150)
[2023-01-06 16:00] LABS: TOTAL 25(OH) VITAMIN D 39.2 NG/ML (20.0-100.0)
[2023-01-06 16:01] LABS: VITAMIN B12 LEVEL 359 PG/ML (211-911)
[2023-01-06 17:02] LABS: HEMOGLOBIN A1c 5.3 % (4.0-6.0)
== END ==
LOC: M PLALAB 11:58
PROVIDERS: ATTEND Internal Medicine Hematology
DX: E78.2 Mixed hyperlipidemia (principal); Z79.899 Other long term (current) drug therapy

== ENCOUNTER → 2023-02-01 | Outpatient (CLI) | payer MEDICARE, BC ==
[2023-02-01 11:34] LABS: BASO % 0.9 % (0.0-1.0); EOS # 0.1 10^3/uL (0.0-0.5); EOS % 1.6 % (0.0-3.0); HEMATOCRIT 43.5 % (36.0-47.0); HEMOGLOBIN 14.4 g/dl (12.0-15.5); LYMPH # 1.4 10^3/uL (1.5-5.0); LYMPH % 31.4 % (24.0-44.0); MEAN CORPUSCULAR HEMOGLOBIN 33.2 pg (27.0-33.0); MEAN CORPUSCULAR HGB CONC 33.1 g/dl (32.0-36.5); MEAN CORPUSCULAR VOLUME 100.2 fl (80.0-96.0); MONO # 0.4 10^3/uL (0.0-0.8); MONO % 9.2 % (2.0-8.0); NEUTROPHILS # 2.5 10^3/uL (1.5-8.5); NEUTROPHILS % 56.7 % (36.0-66.0); PLATELET COUNT, AUTOMATED 261 10^3/uL (150-450); RED BLOOD COUNT 4.34 10^6/uL (4.00-5.40); WHITE BLOOD COUNT 4.4 10^3/uL (4.0-10.0)
[2023-02-01 12:03] LABS: ALBUMIN 3.6 G/DL (3.2-5.2); ALKALINE PHOSPHATASE 85 U/L (46-116); ALT/SGPT 10 U/L (7.0-40); AST/SGOT 22 U/L (<34); BILIRUBIN,TOTAL 0.7 MG/DL (0.3-1.2); BLOOD UREA NITROGEN 20 MG/DL (9-23); CALCIUM LEVEL 9.7 MG/DL (8.3-10.6); CARBON DIOXIDE LEVEL 30 MMOL/L (20-31); CHLORIDE LEVEL 104 MMOL/L (98-107); CREATININE FOR GFR 0.77 MG/DL (0.55-1.30); GLOMERULAR FILTRATION RATE > 60.0 (>39); GLUCOSE, FASTING 88 MG/DL (74-106); SODIUM LEVEL 141 MMOL/L (136-145); TOTAL PROTEIN 5.9 G/DL (5.7-8.2)
== END ==
LOC: M RAD 10:13
PROVIDERS: ATTEND Podiatrist
DX: M72.2 Plantar fascial fibromatosis (principal); M79.672 Pain in left foot

== ENCOUNTER 2023-02-11 06:09 | Day surgery (SDC) | payer MEDICARE, BC ==
[~2023-02-11] VITALS: Ht 165.1 cm; Wt 72.6 kg
[2023-02-11] MEDS ORDERED: LR 1,000 ML IV SCH (06:25)
[2023-02-11] MEDS ORDERED: fentaNYL 100 MCG/2 ML INJECTION As Ordered ONE (06:52)
[2023-02-11] MEDS ORDERED: ONDANSETRON 4MG 2ML VIAL As Ordered ONE (06:53)
[2023-02-11] MEDS ORDERED: LIDOCAINE 2% 100MG/5ML SDV (FOR ANES.) As Ordered ONE (06:53)
[2023-02-11] MEDS ORDERED: propofoL 200 MG/20 ML VIAL As Ordered ONE (06:53)
[2023-02-11] MEDS ORDERED: ROPIvacaine 0.5% 30ML VIAL As Ordered ONE (07:21)
[2023-02-11] MEDS ORDERED: GENTAMICIN SULF 80MG/2ML VIAL As Ordered ONE (07:21)
[2023-02-11] MEDS ORDERED: LIDOCAINE 2% MDV 20ML VIAL As Ordered ONE (07:22)
[2023-02-11] MEDS ORDERED: VANCOMYCIN HCL 1,000 MG, VIAL MATE ADAPTER 1 EACH in D5W 250 ML IV ONE (07:30)
[2023-02-11 09:20] VITALS: BP 142/92; TEMP 97; O2SAT 96
== END 2023-02-11 09:30 | disposition home or self-care (01) ==
LOC: M SDC 06:09
PROVIDERS: ATTEND Podiatrist
DX: M72.2 Plantar fascial fibromatosis (principal); I10 Essential (primary) hypertension; E78.5 Hyperlipidemia, unspecified; K59.00 Constipation, unspecified; M81.0 Age-related osteoporosis without current pathological fracture; G47.33 Obstructive sleep apnea (adult) (pediatric); J30.2 Other seasonal allergic rhinitis; Z88.0 Allergy status to penicillin; Z88.2 Allergy status to sulfonamides; Z79.899 Other long term (current) drug therapy
CPT/HCPCS: 29893; J0665; J1100; J1580; J2405; J3010

== ENCOUNTER → 2023-06-14 | Outpatient (CLI) | payer MEDICARE, BC ==
[2023-06-14 16:02] LABS: BASO # 0.1 10^3/uL (0.0-0.2); EOS # 0.1 10^3/uL (0.0-0.5); EOS % 1.3 % (0.0-3.0); HEMATOCRIT 44.6 % (36.0-47.0); HEMOGLOBIN 14.9 g/dl (12.0-15.5); LYMPH % 37.5 % (24.0-44.0); MEAN CORPUSCULAR HGB CONC 33.4 g/dl (32.0-36.5); MEAN CORPUSCULAR VOLUME 98.9 fl (80.0-96.0); MONO # 0.4 10^3/uL (0.0-0.8); MONO % 8.2 % (2.0-8.0); NEUTROPHILS # 2.7 10^3/uL (1.5-8.5); PLATELET COUNT, AUTOMATED 258 10^3/uL (150-450); RED BLOOD COUNT 4.51 10^6/uL (4.00-5.40); WHITE BLOOD COUNT 5.3 10^3/uL (4.0-10.0)
[2023-06-14 16:09] LABS: ERYTHROCYTE SEDIMENTATION RATE 17 mm/hr (0-30)
[2023-06-14 16:29] LABS: C REACTIVE PROTEIN QUANTITATIV < 0.40 MG/DL (<1.0)
[2023-06-14 16:31] LABS: ALBUMIN 3.9 G/DL (3.2-5.2); ALKALINE PHOSPHATASE 79 U/L (46-116); ALT/SGPT 14 U/L (7.0-40); AST/SGOT 18 U/L (<34); BILIRUBIN,TOTAL 0.4 MG/DL (0.3-1.2); BLOOD UREA NITROGEN 20 MG/DL (9-23); CALCIUM LEVEL 9.6 MG/DL (8.3-10.6); CARBON DIOXIDE LEVEL 30 MMOL/L (20-31); CHLORIDE LEVEL 103 MMOL/L (98-107); CREATININE FOR GFR 0.75 MG/DL (0.55-1.30); GLOMERULAR FILTRATION RATE > 60.0 (>39); GLUCOSE, FASTING 86 MG/DL (74-106); POTASSIUM SERUM 3.8 MMOL/L (3.5-5.1); SODIUM LEVEL 142 MMOL/L (136-145); TOTAL PROTEIN 6.4 G/DL (5.7-8.2)
[2023-06-14 16:36] LABS: RHEUMATOID FACTOR QUANT < 3.5 IU/ML (<14)
== END ==
LOC: M PLALAB 14:37
PROVIDERS: ATTEND Student in an Organized Health Care Education/Training Program
DX: M17.0 Bilateral primary osteoarthritis of knee (principal); Z79.899 Other long term (current) drug therapy

== ENCOUNTER → 2023-11-16 | Outpatient (REF) | payer MEDICARE, BC ==
[2023-11-16 17:29] LABS: BASO # 0.1 10^3/uL (0.0-0.2); BASO % 1.1 % (0.0-1.0); EOS # 0.2 10^3/uL (0.0-0.5); EOS % 3.4 % (0.0-3.0); HEMATOCRIT 43.2 % (36.0-47.0); HEMOGLOBIN 14.4 g/dl (12.0-15.5); LYMPH # 1.5 10^3/uL (1.5-5.0); LYMPH % 33.2 % (24.0-44.0); MEAN CORPUSCULAR HEMOGLOBIN 33.9 pg (27.0-33.0); MEAN CORPUSCULAR HGB CONC 33.3 g/dl (32.0-36.5); MEAN CORPUSCULAR VOLUME 101.6 fl (80.0-96.0); MONO # 0.4 10^3/uL (0.0-0.8); MONO % 8.9 % (2.0-8.0); NEUTROPHILS # 2.4 10^3/uL (1.5-8.5); NEUTROPHILS % 53.4 % (36.0-66.0); PLATELET COUNT, AUTOMATED 269 10^3/uL (150-450); RED BLOOD COUNT 4.25 10^6/uL (4.00-5.40); WHITE BLOOD COUNT 4.4 10^3/uL (4.0-10.0)
[2023-11-16 17:59] LABS: C REACTIVE PROTEIN QUANTITATIV < 0.40 MG/DL (<1.0)
[2023-11-16 18:01] LABS: ALBUMIN 3.6 G/DL (3.2-5.2); ALKALINE PHOSPHATASE 88 U/L (46-116); ALT/SGPT 12 U/L (7.0-40); AST/SGOT 14 U/L (<34); BILIRUBIN,TOTAL 0.5 MG/DL (0.3-1.2); BLOOD UREA NITROGEN 23 MG/DL (9-23); CALCIUM LEVEL 9.6 MG/DL (8.3-10.6); CARBON DIOXIDE LEVEL 31 MMOL/L (20-31); CHLORIDE LEVEL 102 MMOL/L (98-107); CHOLESTEROL LEVEL 208 MG/DL (<200); CREATININE FOR GFR 0.77 MG/DL (0.55-1.30); GLOMERULAR FILTRATION RATE > 60.0 (>39); GLUCOSE, FASTING 85 MG/DL (74-106); LDL CHOLESTEROL 124.2 MG/DL (<100); POTASSIUM SERUM 4.2 MMOL/L (3.5-5.1); SODIUM LEVEL 140 MMOL/L (136-145); THYROID STIMULATING HORMONE 2.076 uIU/ML (0.55-4.78); TOTAL 25(OH) VITAMIN D 34.2 NG/ML (20.0-100.0); TRIGLYCERIDES LEVEL 94 MG/DL (<150); VITAMIN B12 LEVEL 386 PG/ML (211-911)
[2023-11-16 18:23] LABS: CREATININE, URINE 114.3 MG/DL; MAU/CREAT RATIO 7.8 MCG/MG (0.0-30.0)
== END ==
LOC: M SFHCCAPE 08:26
PROVIDERS: ATTEND Internal Medicine Hematology
DX: I10 Essential (primary) hypertension (principal); Z79.899 Other long term (current) drug therapy

== ENCOUNTER → 2024-01-25 | Outpatient (REF) | payer MEDICARE, BC ==
[~2024-01-25] MED LIST changes: -CRAN400C PO; +CRANBERRY400 MG PO
== END ==
LOC: M SFHCDERM 07:19
PROVIDERS: ATTEND Physician Assistant
DX: Z87.39 Personal history of other diseases of the musculoskeletal system and connective tissue (principal)

== ENCOUNTER → 2024-01-30 | Outpatient (REF) | payer MEDICARE, BC ==
[2024-01-30 17:32] LABS: CALCIUM LEVEL 8.8 MG/DL (8.3-10.6)
[2024-01-30 17:37] LABS: TOTAL 25(OH) VITAMIN D 32.3 NG/ML (20.0-100.0)
== END ==
LOC: M SFHCDERM 08:10
PROVIDERS: ATTEND Physician Assistant
DX: Z87.39 Personal history of other diseases of the musculoskeletal system and connective tissue (principal); Z79.899 Other long term (current) drug therapy

== ENCOUNTER → 2024-02-09 | Outpatient (CLI) | payer MEDICARE, BC | LOC: M WHC 07:55 | PROVIDERS: ATTEND Obstetrics & Gynecology | DX: N64.4 Mastodynia (principal) | CPT/HCPCS: 77066; G0279 ==

== ENCOUNTER → 2024-05-30 | Outpatient (REF) | payer MEDICARE, BC ==
[2024-05-30 17:52] LABS: BASO # 0.1 10^3/uL (0.0-0.2); BASO % 1.1 % (0.0-1.0); EOS # 0.1 10^3/uL (0.0-0.5); EOS % 2.4 % (0.0-3.0); HEMATOCRIT 45.6 % (36.0-47.0); HEMOGLOBIN 15.1 g/dl (12.0-15.5); LYMPH # 1.2 10^3/uL (1.5-5.0); LYMPH % 26.4 % (24.0-44.0); MEAN CORPUSCULAR HEMOGLOBIN 33.2 pg (27.0-33.0); MEAN CORPUSCULAR HGB CONC 33.1 g/dl (32.0-36.5); MEAN CORPUSCULAR VOLUME 100.2 fl (80.0-96.0); MONO # 0.4 10^3/uL (0.0-0.8); MONO % 8.9 % (2.0-8.0); NEUTROPHILS # 2.8 10^3/uL (1.5-8.5); PLATELET COUNT, AUTOMATED 274 10^3/uL (150-450); RED BLOOD COUNT 4.55 10^6/uL (4.00-5.40); WHITE BLOOD COUNT 4.6 10^3/uL (4.0-10.0)
[2024-05-30 18:16] LABS: HEMOGLOBIN A1c 5.1 % (4.0-6.0)
[2024-05-30 18:20] LABS: C REACTIVE PROTEIN QUANTITATIV < 0.40 MG/DL (<1.0); MAU/CREAT RATIO 4.5 MCG/MG (0.0-30.0)
[2024-05-30 18:22] LABS: ALBUMIN 3.7 G/DL (3.2-5.2); ALKALINE PHOSPHATASE 90 U/L (35-104); ALT/SGPT 12 U/L (7.0-40); AST/SGOT 14 U/L (<34); BILIRUBIN,TOTAL 0.6 MG/DL (0.3-1.2); BLOOD UREA NITROGEN 16 MG/DL (9-23); CALCIUM LEVEL 9.8 MG/DL (8.3-10.6); CARBON DIOXIDE LEVEL 32 MMOL/L (20-31); CHLORIDE LEVEL 103 MMOL/L (98-107); CHOLESTEROL LEVEL 216 MG/DL (<200); CHOLESTEROL RISK RATIO 3.02 (<5); GLOMERULAR FILTRATION RATE > 60.0 (>39); GLUCOSE, FASTING 95 MG/DL (74-106); HDL CHOLESTEROL 71.4 MG/DL (>40); LDL CHOLESTEROL 122.2 MG/DL (<100); NON-HDL-C 144.6 MG/DL; SODIUM LEVEL 141 MMOL/L (136-145); TOTAL PROTEIN 6.6 G/DL (5.7-8.2); TRIGLYCERIDES LEVEL 112 MG/DL (<150)
[2024-05-30 18:23] LABS: THYROID STIMULATING HORMONE 1.787 uIU/ML (0.55-4.78); TOTAL 25(OH) VITAMIN D 41.6 NG/ML (20.0-100.0); VITAMIN B12 LEVEL 403 PG/ML (211-911)
[2024-05-30 18:24] LABS: FREE T4 1.25 NG/DL (0.89-1.76)
== END ==
LOC: M SFHCPLAZ 08:24
PROVIDERS: ATTEND Student in an Organized Health Care Education/Training Program
DX: E78.2 Mixed hyperlipidemia (principal); Z79.899 Other long term (current) drug therapy

== ENCOUNTER 2024-06-25 05:18 | Inpatient (IN) | payer MEDICARE, BC ==
[2024-06-25] VITALS (7 sets, daily range): BP systolic 64–109; BP diastolic 52–64; TEMP 97.6–99.6; O2SAT 93–94
[~2024-06-25] VITALS: Ht 165.1 cm; Wt 73.9 kg
[2024-06-25] MEDS: ONDANSETRON 4MG 2ML VIAL IV ONE (07:24)
[2024-06-25 07:38] LABS: HEMATOCRIT 41.1 % (36.0-47.0); HEMOGLOBIN 13.7 g/dl (12.0-15.5); MEAN CORPUSCULAR HEMOGLOBIN 33.3 pg (27.0-33.0); MEAN CORPUSCULAR HGB CONC 33.3 g/dl (32.0-36.5); PLATELET COUNT, AUTOMATED 149 10^3/uL (150-450); RED BLOOD COUNT 4.11 10^6/uL (4.00-5.40); WHITE BLOOD COUNT 1.8 10^3/uL (4.0-10.0)
[2024-06-25] MEDS: ACETAMINOPHEN *IV* 1,000 MG in IV 1 EA IV ONE (07:39)
[2024-06-25 08:03] LABS: ALBUMIN 3.2 G/DL (3.2-5.2); BILIRUBIN,DIRECT 0.2 MG/DL (<0.4); BILIRUBIN,TOTAL 0.7 MG/DL (0.3-1.2); CALCIUM LEVEL 9.1 MG/DL (8.3-10.6); CREATININE FOR GFR 1.06 MG/DL (0.55-1.30); GLOMERULAR FILTRATION RATE 53.5 (>39); POTASSIUM SERUM 3.9 MMOL/L (3.5-5.1); TOTAL PROTEIN 5.8 G/DL (5.7-8.2)
[2024-06-25] MEDS: cefTRIAXone SOD 1 GM in DEXTROSE 5% (D5W) ADV/MINI-BAG 50 ML IV ONE (08:05)
[2024-06-25] MEDS: NS 1,000 ML IV ONE ×4 (08:06→17:53)
[2024-06-25] MEDS: ATORVASTATIN 20 MG TAB PO SCH (09:00)
[2024-06-25] MEDS ORDERED: CALC-190 PO (10:06)
[2024-06-25] MEDS ORDERED: XALA0.007 OU (10:14)
[2024-06-25] MEDS ORDERED: XIID5DRO OU (10:14)
[2024-06-25] MEDS ORDERED: HOME MED LIST COMPLETE! XX SCH (10:15)
[2024-06-25 10:19] LABS: BASO % 0.5 % (0.0-1.0); HEMATOCRIT 38.7 % (36.0-47.0); HEMOGLOBIN 13.1 g/dl (12.0-15.5); LYMPH # 0.1 10^3/uL (1.5-5.0); LYMPH % 5.9 % (24.0-44.0); MEAN CORPUSCULAR HEMOGLOBIN 33.5 pg (27.0-33.0); MEAN CORPUSCULAR HGB CONC 33.9 g/dl (32.0-36.5); MONO % 0.5 % (2.0-8.0); NEUTROPHILS # 1.9 10^3/uL (1.5-8.5); NEUTROPHILS % 92.1 % (36.0-66.0); PLATELET COUNT, AUTOMATED 111 10^3/uL (150-450); RED BLOOD COUNT 3.91 10^6/uL (4.00-5.40)
[2024-06-25 10:44] LABS: PROCALCITONIN 1.05 ng/ml
[2024-06-25 12:15] LABS: PERCENT SATURATION 44.4 % (13.2-45.0)
[2024-06-25 12:17] LABS: FERRITIN 136.9 NG/ML (7.3-270.7)
[2024-06-25] MEDS ORDERED: MOM 30ML SUSPENSION UDC PO PRN (12:30)
[2024-06-25 12:37] LABS: FOLATE 17.94 NG/ML (>5.4)
[2024-06-25 13:41] LABS: INR 1.14; PROTHROMBIN TIME 14.9 SECONDS (12.5-14.5)
[2024-06-25] MEDS: ENOXAPARIN 40MG/0.4ML SYRINGE (J1650 PER 10MG) SC SCH (13:48)
[2024-06-25] MEDS: OMEPRAZOLE 20MG CAP PO SCH (13:48)
[2024-06-25] MEDS: NS 1,000 ML IV SCH (13:48)
[2024-06-25] MEDS: cefTRIAXone SOD 1 GM in DEXTROSE 5% (D5W) ADV/MINI-BAG 50 ML IV SCH (16:45)
[2024-06-25] MEDS: ONDANSETRON 4MG 2ML VIAL IV PRN (16:46)
[2024-06-25] MEDS: LATANOPROST 0.005% OPHTH SOLN 2.5 ML OU SCH (20:56)
[2024-06-25] MEDS: DOCUSATE SODIUM 100MG CAPSULE PO SCH (20:56)
[2024-06-25] MEDS: SENNA 8.6 MG TAB (SENOKOT) PO SCH (20:57)
[2024-06-25] MEDS: POLYVINYL ALCOHOL OPHTH SOLN 15ML (LIQUITEARS) OU SCH (21:00)
[2024-06-26] VITALS (8 sets, daily range): BP systolic 82–119; BP diastolic 50–74; TEMP 98.3–100.9; O2SAT 89–96
[2024-06-26] MEDS: ACETAMINOPHEN 325 MG TAB PO PRN (03:07)
[2024-06-26] MEDS: MIDODRINE 5 MG TAB PO ONE (04:11)
[2024-06-26 05:22] LABS: HEMATOCRIT 33.4 % (36.0-47.0); HEMOGLOBIN 11.2 g/dl (12.0-15.5); MEAN CORPUSCULAR HEMOGLOBIN 33.5 pg (27.0-33.0); MEAN CORPUSCULAR HGB CONC 33.5 g/dl (32.0-36.5); PLATELET COUNT, AUTOMATED 103 10^3/uL (150-450); RED BLOOD COUNT 3.34 10^6/uL (4.00-5.40); WHITE BLOOD COUNT 22.2 10^3/uL (4.0-10.0)
[2024-06-26 06:33] LABS: ALBUMIN 2.1 G/DL (3.2-5.2); BILIRUBIN,TOTAL 0.3 MG/DL (0.3-1.2); CALCIUM LEVEL 7.1 MG/DL (8.3-10.6); GLOMERULAR FILTRATION RATE 57.2 (>39); POTASSIUM SERUM 3.4 MMOL/L (3.5-5.1); TOTAL PROTEIN 4.1 G/DL (5.7-8.2)
[2024-06-26 07:51] LABS: PERCENT SATURATION 2.4 % (13.2-45.0)
[2024-06-26 07:54] LABS: FERRITIN 160.4 NG/ML (7.3-270.7); FOLATE 5.12 NG/ML (>5.4)
[2024-06-26] MEDS: POTASSIUM CHLORIDE 10MEQ SR TABLET PO ONE (09:50)
[2024-06-26] MEDS: CYANOCOBALAMIN 500 MCG TAB PO SCH (11:42)
[2024-06-26] MEDS: FOLIC ACID 1MG TAB PO SCH (11:42)
[2024-06-26 15:03] LABS: BLOOD UREA NITROGEN 25 MG/DL (9-23); CALCIUM LEVEL 7.7 MG/DL (8.3-10.6); CARBON DIOXIDE LEVEL 24 MMOL/L (20-31); CHLORIDE LEVEL 114 MMOL/L (98-107); CREATININE FOR GFR 0.95 MG/DL (0.55-1.30); GLOMERULAR FILTRATION RATE > 60.0 (>39); GLUCOSE, FASTING 112 MG/DL (74-106); MAGNESIUM LEVEL 1.3 MG/DL (1.8-2.4); POTASSIUM SERUM 3.9 MMOL/L (3.5-5.1); SODIUM LEVEL 145 MMOL/L (136-145)
[2024-06-26] MEDS: MAG SULF 1GM/100ML (MAG RUN) 1 GM in IV 1 EA IV SCH (17:05)
[2024-06-26] MEDS: MELOXICAM (MOBIC) 7.5 MG TAB PO PRN (17:06)
[2024-06-26] MEDS: PHENAZOPYRIDINE 100 MG TAB PO SCH (18:11)
[2024-06-26] MEDS ORDERED: PHENAZOPYRIDINE 100 MG TAB PO SCH (21:00)
[2024-06-26] MEDS: diphenhydrAMINE 25MG CAP PO ONE (21:54)
[2024-06-27 04:00] VITALS: BP 109/62; TEMP 98.1; O2SAT 89
[2024-06-27 06:48] LABS: HEMOGLOBIN 10.8 g/dl (12.0-15.5); MEAN CORPUSCULAR HEMOGLOBIN 33.8 pg (27.0-33.0); MEAN CORPUSCULAR HGB CONC 33.8 g/dl (32.0-36.5); WHITE BLOOD COUNT 21.1 10^3/uL (4.0-10.0)
[2024-06-27 07:18] LABS: BLOOD UREA NITROGEN 21 MG/DL (9-23); CALCIUM LEVEL 7.6 MG/DL (8.3-10.6); CARBON DIOXIDE LEVEL 22 MMOL/L (20-31); CHLORIDE LEVEL 116 MMOL/L (98-107); CREATININE FOR GFR 0.83 MG/DL (0.55-1.30); GLOMERULAR FILTRATION RATE > 60.0 (>39); GLUCOSE, FASTING 86 MG/DL (74-106); POTASSIUM SERUM 3.4 MMOL/L (3.5-5.1); SODIUM LEVEL 145 MMOL/L (136-145)
[2024-06-27 07:54] LABS: PLATELET COUNT, AUTOMATED 85 10^3/uL (150-450)
[2024-06-27 07:56] LABS: BASOPHILS 1 % (0-1); LYMPHOCYTES 9 % (16-44); MONOCYTES 5 % (0-5); NEUTROPHILS 77 % (28-66)
[2024-06-27 07:57] LABS: PLATELET ESTIMATE DECREASED (NORMAL)
[2024-06-27 08:23] LABS: MAGNESIUM LEVEL 2.5 MG/DL (1.8-2.4)
[2024-06-27 09:12] VITALS: BP 102/65; TEMP 98.2; O2SAT 93
[2024-06-27] MEDS: POTASSIUM CHLORIDE 10MEQ SR TABLET PO ONE (10:49)
[2024-06-27 12:00] VITALS: BP 132/77; TEMP 98.2; O2SAT 96
[2024-06-27 15:31] VITALS: BP 126/76; TEMP 98.6; O2SAT 96
[2024-06-27 19:33] VITALS: BP 138/90; TEMP 98.3; O2SAT 95
[2024-06-28] VITALS (8 sets, daily range): BP systolic 130–170; BP diastolic 70–102; TEMP 97.4–98.3; O2SAT 94–96
[2024-06-28 05:03] LABS: BASO # 0.1 10^3/uL (0.0-0.2); BASO % 0.5 % (0.0-1.0); EOS # 0.3 10^3/uL (0.0-0.5); EOS % 1.7 % (0.0-3.0); HEMATOCRIT 33.2 % (36.0-47.0); HEMOGLOBIN 11.1 g/dl (12.0-15.5); LYMPH # 1.8 10^3/uL (1.5-5.0); LYMPH % 8.8 % (24.0-44.0); MEAN CORPUSCULAR HEMOGLOBIN 33.1 pg (27.0-33.0); MEAN CORPUSCULAR HGB CONC 33.4 g/dl (32.0-36.5); MEAN CORPUSCULAR VOLUME 99.1 fl (80.0-96.0); MONO # 0.8 10^3/uL (0.0-0.8); MONO % 3.8 % (2.0-8.0); NEUTROPHILS # 17.4 10^3/uL (1.5-8.5); NEUTROPHILS % 84.7 % (36.0-66.0); PLATELET COUNT, AUTOMATED 100 10^3/uL (150-450); RED BLOOD COUNT 3.35 10^6/uL (4.00-5.40); WHITE BLOOD COUNT 20.5 10^3/uL (4.0-10.0)
[2024-06-28 05:25] LABS: BLOOD UREA NITROGEN 19 MG/DL (9-23); CARBON DIOXIDE LEVEL 23 MMOL/L (20-31); CHLORIDE LEVEL 115 MMOL/L (98-107); CREATININE FOR GFR 0.92 MG/DL (0.55-1.30); GLOMERULAR FILTRATION RATE > 60.0 (>39); GLUCOSE, FASTING 85 MG/DL (74-106); POTASSIUM SERUM 3.9 MMOL/L (3.5-5.1); SODIUM LEVEL 145 MMOL/L (136-145)
[2024-06-28] MEDS ORDERED: NORV2TAB PO (09:52)
[2024-06-28] MEDS ORDERED: CEFD1CAP9 PO (09:52)
[2024-06-28] MEDS: amLODIPine 5 MG TAB PO ONE (10:21)
[2024-06-28] MEDS ORDERED: FOLI1TAB11 PO (10:44)
[2024-06-28] MEDS ORDERED: B12-1CHW PO (10:44)
[2024-06-28] MEDS ORDERED: SODIUM CHLORIDE NASAL 0.65% SPRAY BTL (OCEAN) PRN (16:00)
[2024-06-28] MEDS: cefTRIAXone SOD 2 GM in DEXTROSE 5% (D5W) ADV/MINI-BAG 50 ML IV SCH (16:05)
[2024-06-28] MEDS ORDERED: CEFDINIR 300 MG CAP (OMNICEF) PO SCH (21:00)
[2024-06-29 03:17] VITALS: BP 138/80; TEMP 99; O2SAT 91; O2SAT 93
[2024-06-29 05:05] LABS: HEMATOCRIT 36.6 % (36.0-47.0); HEMOGLOBIN 12.4 g/dl (12.0-15.5); MEAN CORPUSCULAR HGB CONC 33.9 g/dl (32.0-36.5); MEAN CORPUSCULAR VOLUME 97.3 fl (80.0-96.0); PLATELET COUNT, AUTOMATED 128 10^3/uL (150-450); RED BLOOD COUNT 3.76 10^6/uL (4.00-5.40); WHITE BLOOD COUNT 12.1 10^3/uL (4.0-10.0)
[2024-06-29 05:26] LABS: BLOOD UREA NITROGEN 10 MG/DL (9-23); CALCIUM LEVEL 8.7 MG/DL (8.3-10.6); CARBON DIOXIDE LEVEL 28 MMOL/L (20-31); CHLORIDE LEVEL 107 MMOL/L (98-107); CREATININE FOR GFR 0.72 MG/DL (0.55-1.30); GLOMERULAR FILTRATION RATE > 60.0 (>39); GLUCOSE, FASTING 89 MG/DL (74-106); POTASSIUM SERUM 3.5 MMOL/L (3.5-5.1); SODIUM LEVEL 143 MMOL/L (136-145)
[2024-06-29 05:31] LABS: ATYPICAL LYMPH 2 % (0-5); EOSINOPHILS 2 % (0-3); LYMPHOCYTES 13 % (16-44); MONOCYTES 10 % (0-5); NEUTROPHILS 72 % (28-66)
[2024-06-29 05:32] LABS: PLATELET ESTIMATE DECREASED (NORMAL)
[2024-06-29 07:55] VITALS: BP 128/62; TEMP 98; O2SAT 96
[2024-06-29] MEDS ORDERED: ISOVUE-370 76% 100ML VIAL As Ordered ONE (07:58)
[2024-06-29] MEDS: ONDANSETRON 4MG ORAL DISINTEGRATING TAB PO PRN (08:49)
[2024-06-29 08:51] LABS: MAGNESIUM LEVEL 1.6 MG/DL (1.8-2.4)
[2024-06-29] MEDS: amLODIPine 5 MG TAB PO SCH (08:51)
[2024-06-29 11:54] VITALS: BP 140/80; TEMP 98; O2SAT 97
[2024-06-29] MEDS ORDERED: ONDA-282 PO (12:39)
[2024-06-29] MEDS ORDERED: PROB250C PO (12:55)
[2024-06-29] MEDS ORDERED: MAGN400T2 PO (12:57)
[2024-06-29] MEDS: MAGNESIUM OXIDE 400MG TAB (MAG-OX) PO ONE (14:00)
== END 2024-06-29 15:36 | disposition home health service (06) | DRG 871 ==
LOC: M ED 05:18 → M ED INP 11:22 → M PCU 12:35 → OBSVTOIN 06-26 06:55
PROVIDERS: ADMIT Internal Medicine; ATTEND Internal Medicine
PROC: B246ZZZ Ultrasonography of Right and Left Heart (ICD-10-PCS; principal; 2024-06-25)
DX: A41.51 Sepsis due to Escherichia coli [E. coli] (principal); G93.41 Metabolic encephalopathy; N13.2 Hydronephrosis with renal and ureteral calculous obstruction; N10 Acute pyelonephritis; K59.00 Constipation, unspecified; E78.5 Hyperlipidemia, unspecified; M54.9 Dorsalgia, unspecified; I10 Essential (primary) hypertension; G47.33 Obstructive sleep apnea (adult) (pediatric); K21.9 Gastro-esophageal reflux disease without esophagitis; R65.20 Severe sepsis without septic shock; D64.9 Anemia, unspecified; G89.29 Other chronic pain; R55 Syncope and collapse; M85.88 Other specified disorders of bone density and structure, other site; E87.6 Hypokalemia; Z88.2 Allergy status to sulfonamides; D69.6 Thrombocytopenia, unspecified; Z79.899 Other long term (current) drug therapy; Z88.0 Allergy status to penicillin

== ENCOUNTER → 2024-07-09 | Outpatient (REF) | payer MEDICARE, BC ==
[~2024-07-09] MED LIST changes: +B12-1CHW PO; +CALC-190 PO; +CEFD1CAP9 PO; +FOLI1TAB11 PO; +MAGN400T2 PO; +NORV2TAB PO; +ONDA-282 PO; +PROB250C PO; +XALA0.007 OU; +XIID5DRO OU
[2024-07-09 18:30] LABS: HEMOGLOBIN 12.9 g/dl (12.0-15.5); MEAN CORPUSCULAR HEMOGLOBIN 33.1 pg (27.0-33.0); MEAN CORPUSCULAR HGB CONC 32.3 g/dl (32.0-36.5); MEAN CORPUSCULAR VOLUME 102.6 fl (80.0-96.0); PLATELET COUNT, AUTOMATED 437 10^3/uL (150-450); WHITE BLOOD COUNT 3.3 10^3/uL (4.0-10.0)
[2024-07-09 18:47] LABS: ALBUMIN 3.3 G/DL (3.2-5.2); ALKALINE PHOSPHATASE 94 U/L (35-104); ALT/SGPT 23 U/L (7.0-40); AST/SGOT 16 U/L (<34); BILIRUBIN,TOTAL 0.5 MG/DL (0.3-1.2); BLOOD UREA NITROGEN 16 MG/DL (9-23); CALCIUM LEVEL 9.6 MG/DL (8.3-10.6); CARBON DIOXIDE LEVEL 32 MMOL/L (20-31); CHLORIDE LEVEL 103 MMOL/L (98-107); CREATININE FOR GFR 0.83 MG/DL (0.55-1.30); GLOMERULAR FILTRATION RATE > 60.0 (>39); GLUCOSE, FASTING 93 MG/DL (74-106); POTASSIUM SERUM 4.8 MMOL/L (3.5-5.1); SODIUM LEVEL 141 MMOL/L (136-145)
== END ==
LOC: M SFHCPLAZ 08:06
PROVIDERS: ATTEND Nurse Practitioner Adult Health
DX: I10 Essential (primary) hypertension (principal); D72.829 Elevated white blood cell count, unspecified

== ENCOUNTER → 2024-07-16 | Outpatient (REF) | payer MEDICARE, BC ==
[2024-07-16 18:21] LABS: APPEARANCE, URINE CLEAR (CLEAR); BACTERIA, URINE AUTO NEGATIVE (NEGATIVE); BILIRUBIN, URINE AUTO NEGATIVE (NEGATIVE); BLOOD, URINE BLOOD NEGATIVE (NEGATIVE); COLOR, URINE YELLOW (YELLOW); GLUCOSE, URINE (UA) AUTO NEGATIVE (NEGATIVE); KETONE, URINE AUTO NEGATIVE (NEGATIVE); LEUKOCYTE ESTERASE, URINE AUTO NEGATIVE (NEGATIVE); MUCUS, URINE SMALL (NEGATIVE); NITRITE, URINE AUTO NEGATIVE (NEGATIVE); PROTEIN, URINE AUTO NEGATIVE (NEGATIVE); RBC, URINE AUTO 1 /HPF (0-3); SPECIFIC GRAVITY URINE AUTO 1.013 (1.002-1.035); SQUAMOUS EPITHELIAL CELL UR AU 0 /HPF (0-6); UROBILINOGEN, URINE AUTO 0.2 mg/dL (0.0-2.0); WBC, URINE AUTO 1 /HPF (0-3)
== END ==
LOC: M SMT 17:13
PROVIDERS: ATTEND Physician Assistant
DX: N39.0 Urinary tract infection, site not specified (principal)

== ENCOUNTER → 2024-10-29 | Outpatient (REF) | payer MEDICARE, BC ==
[2024-10-29 15:51] LABS: APPEARANCE, URINE CLEAR (CLEAR); BACTERIA, URINE AUTO NEGATIVE (NEGATIVE); BILIRUBIN, URINE AUTO NEGATIVE (NEGATIVE); BLOOD, URINE BLOOD NEGATIVE (NEGATIVE); COLOR, URINE YELLOW (YELLOW); GLUCOSE, URINE (UA) AUTO NEGATIVE (NEGATIVE); KETONE, URINE AUTO NEGATIVE (NEGATIVE); LEUKOCYTE ESTERASE, URINE AUTO NEGATIVE (NEGATIVE); MUCUS, URINE SMALL (NEGATIVE); NITRITE, URINE AUTO NEGATIVE (NEGATIVE); PROTEIN, URINE AUTO NEGATIVE (NEGATIVE); RBC, URINE AUTO 0 /HPF (0-3); SPECIFIC GRAVITY URINE AUTO 1.019 (1.002-1.035); SQUAMOUS EPITHELIAL CELL UR AU 0 /HPF (0-6); UROBILINOGEN, URINE AUTO 0.2 mg/dL (0.0-2.0); WBC, URINE AUTO 0 /HPF (0-3)
== END ==
LOC: M SMT 15:02
PROVIDERS: ATTEND Physician Assistant
DX: N13.30 Unspecified hydronephrosis (principal)

== ENCOUNTER → 2024-11-08 | Outpatient (REF) | payer MEDICARE, BC ==
[~2024-11-08] MED LIST changes: +LIFI1DRO4 OU; -XIID5DRO OU
[2024-11-08 18:13] LABS: BASO # 0.1 10^3/uL (0.0-0.2); BASO % 1.1 % (0.0-1.0); EOS # 0.2 10^3/uL (0.0-0.5); EOS % 4.1 % (0.0-3.0); HEMATOCRIT 44.9 % (36.0-47.0); HEMOGLOBIN 14.6 g/dl (12.0-15.5); LYMPH # 1.1 10^3/uL (1.5-5.0); LYMPH % 25.8 % (24.0-44.0); MEAN CORPUSCULAR HGB CONC 32.5 g/dl (32.0-36.5); MEAN CORPUSCULAR VOLUME 101.4 fl (80.0-96.0); MONO # 0.4 10^3/uL (0.0-0.8); MONO % 9.6 % (2.0-8.0); NEUTROPHILS # 2.6 10^3/uL (1.5-8.5); NEUTROPHILS % 59.4 % (36.0-66.0); PLATELET COUNT, AUTOMATED 234 10^3/uL (150-450); RED BLOOD COUNT 4.43 10^6/uL (4.00-5.40); WHITE BLOOD COUNT 4.4 10^3/uL (4.0-10.0)
[2024-11-08 18:32] LABS: ALBUMIN 3.6 G/DL (3.2-5.2); ALKALINE PHOSPHATASE 95 U/L (35-104); ALT/SGPT 17 U/L (7.0-40); AST/SGOT 13 U/L (<34); BILIRUBIN,TOTAL 0.5 MG/DL (0.3-1.2); BLOOD UREA NITROGEN 20 MG/DL (9-23); CALCIUM LEVEL 9.3 MG/DL (8.3-10.6); CARBON DIOXIDE LEVEL 31 MMOL/L (20-31); CHLORIDE LEVEL 103 MMOL/L (98-107); CHOLESTEROL LEVEL 199 MG/DL (<200); CHOLESTEROL RISK RATIO 2.62 (<5); CREATININE FOR GFR 0.82 MG/DL (0.55-1.30); FREE T4 1.11 NG/DL (0.89-1.76); GLOMERULAR FILTRATION RATE 73.6 (>39); GLUCOSE, FASTING 92 MG/DL (74-106); HDL CHOLESTEROL 75.8 MG/DL (>40); LDL CHOLESTEROL 104.2 MG/DL (<100); NON-HDL-C 123.2 MG/DL; POTASSIUM SERUM 4.2 MMOL/L (3.5-5.1); PTH INTACT 57.7 PG/ML (18.5-88.0); SODIUM LEVEL 140 MMOL/L (136-145); THYROID STIMULATING HORMONE 2.008 uIU/ML (0.55-4.78); TOTAL PROTEIN 6.1 G/DL (5.7-8.2); TRIGLYCERIDES LEVEL 95 MG/DL (<150)
[2024-11-08 21:16] LABS: HEMOGLOBIN A1c 5.4 % (4.0-6.0)
[2024-11-09 12:39] LABS: MALB URINE SIEMENS < 3.0 MG/L
[2024-11-12 13:37] LABS: MUMPS VIRUS IgG ANTIBODY > 300.00 AU/mL (>10.99); RUBEOLA IgG ANTIBODY > 300.00 AU/mL (>16.49)
== END ==
LOC: M SFHCCAPE 08:15
PROVIDERS: ATTEND Student in an Organized Health Care Education/Training Program
DX: Z01.84 Encounter for antibody response examination (principal); I10 Essential (primary) hypertension; S16.1XXA Strain of muscle, fascia and tendon at neck level, initial encounter; N13.30 Unspecified hydronephrosis; M85.80 Other specified disorders of bone density and structure, unspecified site; E78.2 Mixed hyperlipidemia; X58.XXXA Exposure to other specified factors, initial encounter; Y92.9 Unspecified place or not applicable; Y93.9 Activity, unspecified; Y99.9 Unspecified external cause status; Z79.899 Other long term (current) drug therapy

== ENCOUNTER → 2024-11-19 | Outpatient (REF) | payer MEDICARE, BC | LOC: M SFHCDERM 17:53 | PROVIDERS: ATTEND Nurse Practitioner Family | DX: C44.311 Basal cell carcinoma of skin of nose (principal) ==

== ENCOUNTER → 2025-02-20 | Outpatient (REF) | payer MEDICARE, BC ==
[2025-02-20 18:49] LABS: ALT/SGPT 17.0 U/L (7.0-40); AST/SGOT 19.0 U/L (<34); CALCIUM LEVEL 9.1 MG/DL (8.3-10.6); CARBON DIOXIDE LEVEL 28.0 MMOL/L (20-31); CHLORIDE LEVEL 104.0 MMOL/L (98-107); CREATININE FOR GFR 0.87 MG/DL (0.55-1.30); GLOMERULAR FILTRATION RATE 68.6 (>39); POTASSIUM SERUM 4.3 MMOL/L (3.5-5.1); SODIUM LEVEL 142.0 MMOL/L (136-145)
[2025-02-20 19:07] LABS: BASO # 0.0 10^3/uL (0.0-0.2); BASO % 1.0 % (0.0-1.0); EOS # 0.1 10^3/uL (0.0-0.5); EOS % 2.7 % (0.0-3.0); LYMPH # 1.3 10^3/uL (1.5-5.0); LYMPH % 31.0 % (24.0-44.0); MONO # 0.4 10^3/uL (0.0-0.8); MONO % 9.8 % (2.0-8.0); NEUTROPHILS # 2.3 10^3/uL (1.5-8.5); NEUTROPHILS % 55.5 % (36.0-66.0); PLATELET COUNT, AUTOMATED 229 10^3/uL (150-450)
== END ==
LOC: M SFHCCAPE 09:54
PROVIDERS: ATTEND Nurse Practitioner Family
DX: B35.1 Tinea unguium (principal)

== ENCOUNTER → 2025-05-01 | Outpatient (CLI) | payer MEDICARE, BC | LOC: M WHC 12:51 | PROVIDERS: ATTEND Obstetrics & Gynecology | DX: Z13.820 Encounter for screening for osteoporosis (principal); Z12.31 Encounter for screening mammogram for malignant neoplasm of breast; R92.333 Mammographic heterogeneous density, bilateral breasts ==

== ENCOUNTER → 2025-05-01 | Outpatient (CLI) | payer MEDICARE, BC | LOC: M WHC 12:51 | PROVIDERS: ATTEND Obstetrics & Gynecology | DX: Z53.9 Procedure and treatment not carried out, unspecified reason (principal) ==

== ENCOUNTER → 2025-06-28 | Outpatient (CLI) | payer MEDICARE, BC | LOC: M PLAIMG 08:13 | PROVIDERS: ATTEND Family Medicine | DX: M54.50 Low back pain, unspecified (principal); M47.816 Spondylosis without myelopathy or radiculopathy, lumbar region ==